=== PATIENT | male | born 1955 | race Caucasian/White ===

== ENCOUNTER 2017-07-19 11:55 | Inpatient (IN) ==
[2017-07-19] MEDS ORDERED: 0.9 % Sodium Chloride 1,000 ML IVC ONE (12:47)
[2017-07-19 13:28] LABS: Basophils # 0.1 K/mcL (0.0-0.2); Basophils % 0.8 %; Eosinophils # 0.1 K/mcL (0.0-0.6); Eosinophils % 1.7 %; Hematocrit 36.3 % (37.5-50.1); Immature Granulocytes % 0.3 % (0-4); Lymphocytes # 0.7 K/mcL (0.6-4.6); Lymphocytes % 11.8 %; Mean Corpuscular HGB Conc 33.1 g/dL (31.6-35.5); Mean Corpuscular Hemoglobin 28.4 pg (28.0-33.3); Mean Corpuscular Volume 85.8 fL (83.0-100.0); Mean Platelet Volume 10.8 fL (9.4-12.4); Monocytes # 0.4 K/mcL (0.0-1.3); Monocytes % 7.3 %; Neutrophils # 4.6 K/mcL (1.6-8.9); Platelet Count 177 K/mcL (140-400); Red Blood Count 4.23 M/mcL (4.19-5.50); Red Cell Distribution Width 14.5 % (11.5-14.5); Segmented Neutrophils % 78.1 %
[2017-07-19 13:42] LABS: Alanine Aminotransferase 50 Units/L (0-55); Albumin 3.2 g/dL (3.5-5.0); Albumin/Globulin Ratio 0.9 (1.1-2.2); Alkaline Phosphatase 72 Units/L (38-126); Aspartate Amino Transferase 33 Units/L (5-34); BUN/Creatinine Ratio 29 (6-26); Bilirubin,Direct 0.1 mg/dL (0.0-0.5); Bilirubin,Indirect 0.1 mg/dL (0.0-1.2); Bilirubin,Total 0.2 mg/dL (0.2-1.2); Blood Urea Nitrogen 23 mg/dL (8-26); Calcium 9.7 mg/dL (8.6-10.8); Carbon Dioxide 26 mEq/L (19-29); Chloride 106 mEq/L (98-109); Globulin 3.6 g/dL (2.4-3.5); Glucose 92 mg/dL (70-99); Osmolality,Calculated 295 (280-300); Potassium 4.5 mEq/L (3.5-4.5); Sodium 141 mEq/L (136-145); Total Protein 6.8 g/dL (6.0-8.3); eGFR For African Americans > 60 (> 60); eGFR For Non-African Americans > 60 (> 60)
[2017-07-19] MEDS ORDERED: Metoclopramide 10 MG/2 ML VIAL IVP ONE (14:24)
--- NOTE | 2017-07-19 15:44 | Emergency Department Note ---
Disposition Clinical Impression: Malignancy, Facial mass Headache Qualifiers: Headache type: unspecified Headache chronicity pattern: chronic headache Intractability: not intractable Qualified Code(s): R51 - Headache Failure to thrive Qualifiers: Failure to thrive age range: in adult Qualified Code(s): R62.7 - Adult failure to thrive Disposition: Admitted As Inpatient Condition: Fair General Adult HPI - General Chief complaint: ED Headache Stated complaint: headache Time Seen by Provider: 07/19/17 12:04 Source: patient, EMS Mode of arrival: ambulatory Limitations: no limitations Nursing Notes Reviewed: Yes Vital Signs Reviewed: Yes - History of Present Illness HPI Narrative: Patient presents to the ED with the chief complaint of a headache. Has a history of left facial malignancy and lung cancer treated at [facility]. Essentially, patient presenting for failure to thrive. Has had decreased oral intake, increased pain in his face. Patient already has trach and PEG, but will not allow anyone to clean it or changes. No fever, chest pain or worsening difficulty breathing. The pain medicine. They have been giving him is not working and is causing him to have a headache. Headache is been off and on for the last several months, not the worse headache of his life , not acute in onset, no associated vomiting. He does state that over the last 2 weeks. The swelling in his face has gotten worse to the point where he can no longer open his mouth. Normally likes to drink coffee, but has been unable to. is concerned that he is becoming depressed and may no longer want to live, although the patient denies any suicidal ideation. Pain Scale: 7 - Related Data Home Medications Medication Instructions Recorded Confirmed Ciprofloxacin HCl [Cipro] 500 mg GTUBE Q12H 07/19/17 07/19/17 Gabapentin [Gabapentin] 300 mg GTUBE Q12H 07/19/17 07/19/17 Lactose-Reduced Food/Fiber [Jevity 1 can PO AD 07/19/17 07/19/17 1.5 Leeroy Liquid] Levothyroxine [Synthroid] 125 mcg GTUBE QAM 07/19/17 07/19/17 Methadone HCl 5 mg GTUBE Q12H 07/19/17 07/19/17 Prochlorperazine Maleate 10 mg GTUBE Q8HR PRN 07/19/17 07/19/17 [Compazine] Allergies Allergy/AdvReac Type Severity Reaction Status Date / Time No Known Allergies Allergy Verified 07/19/17 12:02 All systems ED: reviewed and negative except as stated. Constitutional: Reports: weakness, weight change. Denies: fever Eyes: Denies: vision change ENT ED: Reports: as per HPI, throat pain Cardiovascular: Denies: chest pain Respiratory: Denies: dyspnea Gastrointestinal: Denies: vomiting Musculoskeletal: Reports: neck pain Neurological: Reports: headache, weakness (general) Psychiatric: Reports: depression Endocrine: Reports: fatigue Allergic/Immunologic: Reports: facial swelling Past Medical History - Past Medical History Attestation: Yes The following information was validated with the patient. Source: patient Medical history: Reports: asthma, cancer, COPD, hypertension Surgical history: Reports: non-contributory Psychiatric history: Reports: no psych history - Social History Smoking Status: Former smoker Smokeless Tobacco Status: No Alcohol use: Reports: none Drug use: Reports: none Physical Exam - General Limitations: no limitations General appearance: alert, in no apparent distress - Head Head exam: atraumatic, normocephalic, normal inspection - Eye Eye exam: Present: normal appearance, PERRL, EOMI - ENT ENT exam: other (Large soft tissue mass to the left face extending from the maxilla into the mandible and down into the neck. Patient unable to open mouth , as she states it is too painful and that the tumor has been growing into his neck) - Neck Neck exam: Present: tenderness, lymphadenopathy, other (mass to L neck) - Chest Chest inspection: Present: normal inspection, symmetric chest wall rise - Respiratory Respiratory exam: Present: normal lung sounds bilaterally - Cardiovascular Cardiovascular exam: Present: normal rhythm, bradycardia, normal heart sounds. Absent: regular rate - Abdominal Exam Abdominal exam: Present: soft, Non-Tender, other (PEG tube in place). Absent: tenderness, distention, guarding, rebound, rigidity - Extremities Exam Extremities exam: Present: normal inspection, full ROM - Expanded Lower Extremity Exam Hip/Pelvis exam: Present: pelvis stable - Neurological Exam Neurological exam: Present: alert, oriented X3 - Psychiatric Psychiatric exam: Present: depressed, flat affect - Skin Skin exam: Present: warm, dry, intact, normal color Course Course Narrative: Patient presents to the ED with the complaint of headache and worsening pain in his left jaw. Patient has a history of malignancy in his left jaw and has a trach and PEG tube. Family states over the last few weeks since discharge from [facility] that he is gradually declined to the point where he no longer wants to eat or drink. States he can normally open his mouth to drink coffee but has not been able to do that over the past 2 weeks. Has had some worsening pain and swelling in his left jaw and neck. No fever, chest pain or shortness breath. Patient's is concerned that he no longer wants to live for and that he may consider suicide. - Reevaluation(s) Reevaluation #1: Patient's CT result is back and does look like he has a worsening malignancy in his neck. This was discussed with the patient and family. They would like to be admitted to the hospital here for discussion about potential palliative care. I think this is reasonable. Patient resting comfortably in no acute distress. We will paged hospitalist for admission. Time: 15:39 Vital Signs Temperature 97.2 F L 07/19/17 11:59 Pulse Rate 55 07/19/17 11:59 Respiratory Rate 16 07/19/17 11:59 Blood Pressure 99/74 07/19/17 11:59 O2 Sat by Pulse Oximetry 100 07/19/17 11:59 Temperature 97.4 F L 07/21/17 18:51 Pulse Rate 59 07/21/17 18:51 Respiratory Rate 19 07/21/17 18:51 Blood Pressure 134/71 07/21/17 18:51 O2 Sat by Pulse Oximetry 100 07/21/17 18:51 Oxygen Delivery Oxygen Delivery Room Air Medical Decision Making - Lab Data Result diagrams: 07/21/17 05:54 07/21/17 05:54 Lab Results 07/19/17 07/19/17 07/20/17 Range/Units 13:15 13:15 04:36 WBC 5.9 5.5 (4.3-11.1) K/mcL RBC 4.23 4.26 (4.19-5.50) M/mcL Hgb 12.0 L 11.8 L (12.9-16.9) g/dL Hct 36.3 L 36.5 L (37.5-50.1) % MCV 85.8 85.7 (83.0-100.0) fL MCH 28.4 27.7 L (28.0-33.3) pg MCHC 33.1 32.3 (31.6-35.5) g/dL RDW 14.5 14.6 H (11.5-14.5) % Plt Count 177 174 (140-400) K/mcL MPV 10.8 11.2 (9.4-12.4) fL Immature Gran % 0.3 (0-4) % Seg Neutrophils % 78.1 % Lymphocytes % 11.8 % Monocytes % 7.3 % Eosinophils % 1.7 % Basophils % 0.8 % Neutrophils # 4.6 (1.6-8.9) K/mcL Lymphocytes # 0.7 (0.6-4.6) K/mcL Monocytes # 0.4 (0.0-1.3) K/mcL Eosinophils # 0.1 (0.0-0.6) K/mcL Basophils # 0.1 (0.0-0.2) K/mcL PT (9.4-12.1) Seconds INR APTT (26.0-36.0) Seconds Sodium 141 (136-145) mEq/L Potassium 4.5 (3.5-4.5) mEq/L Chloride 106 (98-109) mEq/L Carbon Dioxide 26 (19-29) mEq/L BUN 23 (8-26) mg/dL Creatinine 0.79 (0.72-1.25) mg/dL Est GFR ( Amer) > 60 (> 60) Est GFR (Non-Af Amer) > 60 (> 60) BUN/Creatinine Ratio 29 H (6-26) Glucose 92 (70-99) mg/dL Calculated Osmolality 295 (280-300) Calcium 9.7 (8.6-10.8) mg/dL Phosphorus (2.3-4.7) mg/dL Magnesium (1.6-2.6) mg/dL Total Bilirubin 0.2 (0.2-1.2) mg/dL Direct Bilirubin 0.1 (0.0-0.5) mg/dL Indirect Bilirubin 0.1 (0.0-1.2) mg/dL AST 33 (5-34) Units/L ALT 50 (0-55) Units/L Alkaline Phosphatase 72 (38-126) Units/L Serum Total Protein 6.8 (6.0-8.3) g/dL Albumin 3.2 L (3.5-5.0) g/dL Globulin 3.6 H (2.4-3.5) g/dL Albumin/Globulin Ratio 0.9 L (1.1-2.2) 07/20/17 07/20/17 Range/Units 04:36 04:36 WBC (4.3-11.1) K/mcL RBC (4.19-5.50) M/mcL Hgb (12.9-16.9) g/dL Hct (37.5-50.1) % MCV (83.0-100.0) fL MCH (28.0-33.3) pg MCHC (31.6-35.5) g/dL RDW (11.5-14.5) % Plt Count (140-400) K/mcL MPV (9.4-12.4) fL Immature Gran % (0-4) % Seg Neutrophils % % Lymphocytes % % Monocytes % % Eosinophils % % Basophils % % Neutrophils # (1.6-8.9) K/mcL Lymphocytes # (0.6-4.6) K/mcL Monocytes # (0.0-1.3) K/mcL Eosinophils # (0.0-0.6) K/mcL Basophils # (0.0-0.2) K/mcL PT 10.7 (9.4-12.1) Seconds INR 1.0 APTT 28.3 (26.0-36.0) Seconds Sodium 141 (136-145) mEq/L Potassium 3.7 (3.5-4.5) mEq/L Chloride 107 (98-109) mEq/L Carbon Dioxide 29 (19-29) mEq/L BUN 19 (8-26) mg/dL Creatinine 0.76 (0.72-1.25) mg/dL Est GFR ( Amer) > 60 (> 60) Est GFR (Non-Af Amer) > 60 (> 60) BUN/Creatinine Ratio 25 (6-26) Glucose 112 H (70-99) mg/dL Calculated Osmolality 295 (280-300) Calcium 9.8 (8.6-10.8) mg/dL Phosphorus 3.7 (2.3-4.7) mg/dL Magnesium 2.0 (1.6-2.6) mg/dL Total Bilirubin (0.2-1.2) mg/dL Direct Bilirubin (0.0-0.5) mg/dL Indirect Bilirubin (0.0-1.2) mg/dL AST (5-34) Units/L ALT (0-55) Units/L Alkaline Phosphatase (38-126) Units/L Serum Total Protein (6.0-8.3) g/dL Albumin (3.5-5.0) g/dL Globulin (2.4-3.5) g/dL Albumin/Globulin Ratio (1.1-2.2) Attestation Statement - Attestation Attestation: I examined this patient and my medical decision-making was reviewed with the Resident Physician, Dr. Lovett. I agree with the documented findings, disposition and treatment plan as described except to the extent set forth below. Pt is a 61 yo wm, who is brought to the ED by his , hx facial/lung malignancy and s/p trach/PEG. brought him for essentially FTT. Pt refusing to eat/drink, not allowing anyone to clean/change his PEG site or trach. concerned that he may be suicidal, but pt denies any SI/HI/delusions/ hallucinations. Pt is bradycardic and hypotensive on arrival. Pt c/o mild chronic frontal TAVAREZ's which were not acute in onset, and worsening facial swelling at site of malignancy, preventing him from fully opening his mouth. No resp distress/ stridor. Trach site without skin breakdown/bleeding, scant green mucous in tube. I agree with pt's PE findings as documented. Labs unremarkable. Pt appears depressed mood, and does not want to undergo any further CA tx. wanting everything done. CT brain wnl, CT face shows worsening of facial malignancy, grown in size from prior imaging. D/W pt and . Consulted telecasting engineer to speak with family. Offered pt admission and also offered palliative care consult. Pt and do want to be admitted here and were interested in consultation. VSS. D/W hospitalist who accepted pt for admission.
--- NOTE | 2017-07-19 19:23 | Internal Med History&Physical ---
<Garrison Law - Last Filed: 07/20/17 01:32> Date of Encounter: 07/19/17 Time of Encounter: 19:23 Assessment and Plan (1) Laryngeal cancer Current visit: Yes Status: Acute CT neck reveals interval progression of disease with increase in size of ulcerated mucosal mass involving the left tongue base and left tonsillar pillar. Additionally, there is a new soft tissue mass in the left perimandibular soft tissues and left face. Last radiation and chemo in February 2016 at [facility]. Patient reports swelling in his face has gotten worse to the point where he can no longer open his mouth to eat or drink over the past 3 weeks. Patient reports he was unable to travel to [facility] today for another chemotherapy session and would like to receive treatment at [facility] instead. 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 However, pulmonary metastatic disease is not excluded. Qualifiers: Laterality: right Qualified Code(s): C78.01 - Secondary malignant neoplasm of right lung (3) Headache Current visit: Yes Status: Acute CT brain reveals no acute intracranial abnormality. Consider MRI brain if further concern for brain metastasis Continue pain control and symptomatic treatment Qualifiers: Headache type: unspecified Headache chronicity pattern: chronic headache Intractability: not intractable Qualified Code(s): R51 - Headache (4) Tracheostomy in place Current visit: Yes Status: Chronic Continue tracheostomy care (5) Status post insertion of percutaneous endoscopic gastrostomy (PEG) tube Current visit: Yes Status: Chronic Continue tube feeds (6) COPD (chronic obstructive pulmonary disease) Current visit: Yes Status: Chronic CXR reveals no acute process Continue to monitor Qualifiers: COPD type: unspecified COPD Qualified Code(s): J44.9 - Chronic obstructive pulmonary disease, unspecified (7) DVT prophylaxis Current visit: Yes Status: Acute SCDs Internal Medicine - H&P: HPI Chief complaint: Anorexia Admitted From: Home Plans for Post Hospital Care: Hospice - Home History of present illness: Mr. Gunter is a 61 year old male laryngeal cancer, hypertension, COPD, current tracheostomy, and PEG tube that presented from home due to gradually worsening headache, increased swelling and pain in his right face despite analgesics, and decrease in appetite. Patient reports swelling in his face has gotten worse to the point where he can no longer open his mouth to eat or drink. Patient's is concerned that he no longer wants to live and is severely depressed. Of note, patient reports early improvement in symptoms after radiation and chemo in February 2016 at [facility] but symptoms have started getting worse over the past 3 weeks. Patient reports he was unable to travel to [facility] today for another chemotherapy session and would like to receive treatment at [facility] instead. Patient takes Methadone 5mg BID via NG tube prn pain. Patient denies fever, chills, chest pain, SOB, cough, N/V/D/C, vision changes, numbness, tingling, worst headache of his life, or suicidal ideation. Past Med Surg Social Fam HX - Past Medical History Medical history: asthma, cancer, COPD, hypertension, other Psychiatric history: anxiety, depression - Past Surgical History Surgical History: non-contributory, orthopedic, other - Social History Smoking Status: Former smoker Packs per day: 2 Smokeless Tobacco Status: No Alcohol use: none Drug use: none - Family History Mother Living Status: Cause of : lung cancer Internal Medicine - H&P: Meds Ciprofloxacin HCl [Cipro] 500 mg GTUBE Q12H 07/19/17 [History] Gabapentin [Gabapentin] 300 mg GTUBE Q12H 07/19/17 [History] Lactose-Reduced Food/Fiber [Jevity 1.5 Leeroy Liquid] 1 can PO AD 07/19/17 [History ] Levothyroxine [Synthroid] 125 mcg GTUBE QAM 07/19/17 [History] Methadone HCl 5 mg GTUBE Q12H 07/19/17 [History] Prochlorperazine Maleate [Compazine] 10 mg GTUBE Q8HR PRN 07/19/17 [History] 3 Allergy/AdvReac Type Severity Reaction Status Date / Time No Known Allergies Allergy Verified 07/19/17 12:02 All Systems PM: A 10-system review of systems was performed and is negative for pertinent findings except as documented above in the HPI. - Constitutional Constitutional: no chills, no fever(s), no weight gain, no weight loss - EENT Eyes: no change in vision Nose, mouth and throat: change in voice, dry mouth, facial pain, mouth lesions, mouth pain, sore throat, throat swelling, no nasal congestion, no nasal obstruction, no sinus pain, no tongue swelling - Cardiovascular Cardiovascular ROS IM: no chest pain, no palpitations - Respiratory Respiratory: no cough, no dyspnea, no excessive phlegm production - Gastrointestinal Gastrointestinal: no abdominal pain, no constipation, no diarrhea, no nausea, no vomiting - Genitourinary Genitourinary ROS male: no dysuria, no urinary frequency, no urinary urgency - Musculoskeletal Musculoskeletal ROS IM: limited range of motion (jaw), myalgias, no back pain, no numbness, no tingling - Integumentary Integumentary IM: no new lesions, no rash, no skin ulcer - Neurological Neurological ROS: no confusion, no numbness, no tingling, no weakness - Psychiatric Psychiatric: depression, no anxiety, no suicidal ideation - Endocrine Endocrine IM: no polydipsia, no polyphagia, no polyuria - Allergic/Immunologic Allergic/Immunologic: no tongue swelling, no throat swelling, no lip swelling - Constitutional Vitals: Temp Pulse Resp BP Pulse Ox 97.3 F L 62 18 145/64 98 07/19/17 18:47 07/19/17 18:47 07/19/17 18:47 07/19/17 18:47 07/19/17 18:47 General appearance: Present: cooperative, mild distress, A&O X 3, pleasant, answers questions appropriately Exam: appears ill, some difficulty speaking due to jaw immobility - Head Head exam: Present: atraumatic, normocephalic - Eye Eye exam: Present: EOMI, PERRL - ENT ENT exam: Present: mucous membranes dry. Absent: normal exam, normal oropharynx Additional comments: soft tissue mass extending form the left maxilla into the mandible and down into the neck, inability to passively open patient's mouth to visualize oropharynx, pain with palpation left jaw - Expanded ENT Exam Mouth exam: Present: dry mucosa, muffled voice. Absent: normal external inspection Teeth exam: Present: edentulous Throat exam: Present: L peritonsillar mass. Absent: normal inspection - Neck Additional comments: tracheostomy in place, left submandibular mass - Respiratory Respiratory exam: Present: CTAB. Absent: accessory muscle use, respiratory distress, rhonchi, wheezes - Cardiovascular Cardiovascular exam: Present: RRR, +S1, +S2 - GI/Abdominal GI/Abdominal exam: Present: normal bowel sounds, soft. Absent: guarding, tenderness Additional comments: PEG tube in place, no surrounding erythema - Extremities Exam Extremities exam: Present: full ROM, warm. Absent: pedal edema, tenderness - Back Exam Back exam: Absent: normal inspection, paraspinal tenderness, tenderness - Neurological Exam Neurological exam: Present: alert, motor sensory deficit (inability to open jaw) , oriented X3, facial droop (left face mass) - Psychiatric Psychiatric exam: Present: flat affect, normal mood - Skin Skin exam: Present: dry, intact, warm. Absent: excoriation, rash Internal Med - H&P Results - Labs CBC & Chem 7: 07/19/17 13:15 07/19/17 13:15 - Impressions ITS Impressions Head CT 07/19/17 12:56 IMPRESSION: No acute intracranial abnormality. D/ / Sagar Otto MD / Sagar Otto MD Interpreting Provider: Sagar Otto MD Soft Tissue Neck CT 07/19/17 14:23 IMPRESSION: 1. Interval progression of disease with increase in size of ulcerated mucosal mass involving the left tongue base and left tonsillar pillar. Additionally, there is a new soft tissue mass in the left perimandibular soft tissues and left face. 2. Right upper lobe nodular opacity with ground-glass densities may represent focal infection/inflammation. However, pulmonary metastatic disease is not excluded. D/ / 07/19/2017 15:18:57 Mike Wu MD / byron Interpreting Provider: Mike Wu MD Chest X-Ray 07/19/17 14:24 IMPRESSION: No acute process. D/ / Kyle Márquez MD / Kyle Márquez MD Interpreting Provider: Kyle Márquez MD <Patricia Lino - Last Filed: 07/20/17 03:17> Date of Encounter: 07/19/17 Internal Medicine - H&P: HPI History of present illness: Mr. Gunter is a 61 year old male All Systems PM: A 10-system review of systems was performed and is negative for pertinent findings except as documented above in the HPI. - Constitutional Vitals: Temp Pulse Resp BP Pulse Ox 98 F 65 17 131/65 98 07/19/17 23:43 07/19/17 23:43 07/19/17 23:43 07/19/17 23:43 07/19/17 23:43 Internal Med - H&P Results - Labs CBC & Chem 7: 07/19/17 13:15 07/19/17 13:15 - Attending Attestation I have personally seen and examined the patient. Plan discussed with the resident. Patient has presented with inability to eat severe protein calorie medical nutrition and weight loss. He has metastatic laryngeal cancer and underwent chemotherapy last year. Apparently he improved but now there is recurrence. His CT face showed new mass and he is unable to open his mouth. He has a PEG tube. Continue feeds as started. He is a good bowel tone. [facility] has recommended to restart palliative chemotherapy however patient's family is requesting to do it in [place] therefore oncology consulT will be arranged by morning hospitalist team. Palliative care consult suggested.
[2017-07-19] MEDS ORDERED: Naloxone 0.4 MG/ML INJ IVP PRN (20:14)
[2017-07-19] MEDS ORDERED: Ibuprofen 400 MG TABLET PO PRN (20:14)
[2017-07-19] MEDS ORDERED: Metoclopramide 20 MG in 0.9 % Sodium Chloride 50 ML IVPB PRN (20:22)
[2017-07-19] MEDS ORDERED: [UNRECOGNIZED DRUG - OTHER] PO SCH (20:30)
[2017-07-19] MEDS ORDERED: FIBER PO SCH (20:30)
[2017-07-19] MEDS ORDERED: LACTOSE REDUCED FOOD PO SCH (20:30)
[2017-07-19] MEDS: *HR* Morphine 2 MG/ML SYRINGE IVP PRN (20:51)
[2017-07-19] MEDS ORDERED: Methadone Oral Concentrate 10 MG/ML GTUBE SCH (21:00)
[2017-07-19] MEDS: Gabapentin 300 MG CAPSULE GTUBE SCH (23:03)
[2017-07-19] MEDS: *HR* Methadone 5 MG TABLET PO SCH (23:03)
[2017-07-20] MEDS: *HR* Morphine 2 MG/ML SYRINGE IVP PRN ×2 (04:24→09:19)
[2017-07-20 05:40] LABS: Hematocrit 36.5 % (37.5-50.1); Hemoglobin 11.8 g/dL (12.9-16.9); Mean Corpuscular HGB Conc 32.3 g/dL (31.6-35.5); Mean Corpuscular Hemoglobin 27.7 pg (28.0-33.3); Mean Corpuscular Volume 85.7 fL (83.0-100.0); Mean Platelet Volume 11.2 fL (9.4-12.4); Platelet Count 174 K/mcL (140-400); Red Blood Count 4.26 M/mcL (4.19-5.50); Red Cell Distribution Width 14.6 % (11.5-14.5)
[2017-07-20 05:48] LABS: Prothrombin Time 10.7 Seconds (9.4-12.1)
[2017-07-20 05:51] LABS: Activated Partial Thrombo Time 28.3 Seconds (26.0-36.0)
[2017-07-20 05:55] LABS: BUN/Creatinine Ratio 25 (6-26); Blood Urea Nitrogen 19 mg/dL (8-26); Calcium 9.8 mg/dL (8.6-10.8); Carbon Dioxide 29 mEq/L (19-29); Chloride 107 mEq/L (98-109); Glucose 112 mg/dL (70-99); Osmolality,Calculated 295 (280-300); Phosphorous 3.7 mg/dL (2.3-4.7); Potassium 3.7 mEq/L (3.5-4.5); Sodium 141 mEq/L (136-145); eGFR For African Americans > 60 (> 60); eGFR For Non-African Americans > 60 (> 60)
[2017-07-20] MEDS: Gabapentin 300 MG CAPSULE GTUBE SCH ×2 (09:13→20:59)
[2017-07-20] MEDS: *HR* Methadone 5 MG TABLET PO SCH ×2 (09:13→20:59)
[2017-07-20] MEDS ORDERED: *HR* Morphine 2 MG/ML SYRINGE IVP PRN (10:28)
--- NOTE | 2017-07-20 10:57 | Palliative - Consult Note ---
Date of Encounter: 07/20/17 Time of Encounter: 09:50 - Assessment and Plan (1) Cancer associated pain Current Visit: Yes Status: Acute Assessment and plan: Patient is already on methadone 5 mg twice a day via his G-tube. He has taken 20 mg oxycodone via the G-tube and that has worked well for him. Not real clear on when he was getting this as it is not listed in his home meds in the summary. Therefore I will increase his indications as follows. Increasing the morphine from 2 mg to 7.5 mg and decrease the dosing interval to every 2 hours when necessary. She states that the morphine was helping but very very very little. I do not believe that this increase will be all that much for him as he was getting 20 mg oxycodone at home, and is also on 5 mg twice a day of methadone. I have also put 15 mg oxycodone via the G-tube available every 2 hours. I have talked with the nurse to try to use the oxycodone via the G-tube first and save the morphine for breakthrough. After a day or 2 we will consider the possibility of increasing his methadone. As the patient will be managed over at the cancer Center believe that Asher Singh will be only managed over there without any trouble. (2) Constipation by delayed colonic transit Current Visit: Yes Status: Acute Assessment and plan: As the patient will be getting opioids, I put him on a bowel regimen we will continue to watch this. (3) Goals of care, counseling/discussion Current Visit: Yes Status: Acute Assessment and plan: Patient comes in already established DNR CCA, DNI. He does not wish to be resuscitated in the event of cardiac arrest. He also already has a trach and opaqueness of those issues already been addressed. The patient does wish to continue to get chemotherapy if this is at all available to him. We also discussed hospice. He stands when the chemotherapy is no longer working or is causing him too many side effects he can always opt for hospice. Hospice will be available to him whenever he feels it is ready or the folks at the cancer center do not feel the chemotherapy is doing him any good. Patient requests doing redoing his MPOA area I will discuss with social work. (4) Facial mass Current Visit: Yes Status: Acute Assessment and plan: I will start Decadron 4 mg twice a day I think this will help the swelling, it may also help the headaches. (5) Failure to thrive Current Visit: Yes Status: Acute Assessment and plan: Nutrition is following for his G-tube feedings. We will continue these. Qualifiers: Failure to thrive age range: in adult Qualified Code(s): R62.7 - Adult failure to thrive Palliative-CN HPI - Data of Consult Patient: new to practice Requesting Physician: Homer Hale MD Primary Care Provider: Jose Guadalupe Sierra MD - Consult Narrative Palliative Care/Comfort Measures: Palliative care History of present illness: Mr. Gunter is a 61 year old male Patient with a history of laryngeal cancer, hypertension COPD of a trach and a PEG comes from home with worsening headache swelling and pain in the side of his face despite analgesics. Decreased she states that the medications that he has been getting here are helping but not adequately. appetite and the swelling in his face is got to the point where he can no longer open his mouth to eat or drink. The pain is a very intense deep ache achiness primarily in the left side of his face and radiates up into his head. Nothing seems to bring in all medications are helping some but they do not seem to be helping enough. Patient was getting 20 mg oxycodone at home his pain tube and this did not seem to work. She last got radiation chemotherapy in February 2016 at [facility] but the symptoms to be getting worse over the last 3 weeks unable to travel to [facility] for any more chemotherapy and therefore the site he wanted to have chemotherapy down here at the cancer center in [place]. Denies any fever or chills chest pain shortness breath cough nausea vomiting diarrhea has a little bit of constipation vision changes denies any numbness tingling he does not have any suicidal ideation and he does not have the worst headache of his life. Palliative care consult at the request of oncology who was also consulted and goals of care, CODE STATUS is already well established assistance with symptom management. Please see the assessment and plan. CC: Homer Hale MD Headache and left-sided facial swelling Past Med Surg Social Fam HX - Past Medical History Medical history: asthma, cancer, COPD, hypertension, other Psychiatric history: anxiety, depression - Past Surgical History Surgical History: non-contributory, orthopedic, other - Social History Smoking Status: Former smoker Packs per day: 2 Smokeless Tobacco Status: No Alcohol use: none Drug use: none - Family History Mother Living Status: Cause of : lung cancer Medications and Allergies Ciprofloxacin HCl [Cipro] 500 mg GTUBE Q12H 07/19/17 [History] Gabapentin [Gabapentin] 300 mg GTUBE Q12H 07/19/17 [History] Lactose-Reduced Food/Fiber [Jevity 1.5 Leeroy Liquid] 1 can PO AD 07/19/17 [History ] Levothyroxine [Synthroid] 125 mcg GTUBE QAM 07/19/17 [History] Methadone HCl 5 mg GTUBE Q12H 07/19/17 [History] Prochlorperazine Maleate [Compazine] 10 mg GTUBE Q8HR PRN 07/19/17 [History] 3 Allergy/AdvReac Type Severity Reaction Status Date / Time No Known Allergies Allergy Verified 07/19/17 12:02 - Constitutional Constitutional ROS PAL: decreased appetite - EENT Eyes: no discharge, no pain Ears: no ear discharge, no ear pain Ears, nose, mouth, throat: change in voice, dysphagia, facial pain, neck pain ( Neck mass) - Cardiovascular Cardiovascular ROS: no chest pain, no chest pain at rest - Respiratory Respiratory: no cough, no dyspnea - Gastrointestinal Gastrointestinal: constipation, nausea, no diarrhea, no vomiting - Genitourinary Genitourinary ROS male: no urinary frequency, no urinary hesitancy, no urinary incontinence - Musculoskeletal Musculoskeletal ROS IM: neck pain, no muscle weakness, no myalgias - Integumentary ROS Integumentary: skin ulcer, sores (Left side of face and neck) - Neurological Neurological ROS: headache(s), no confusion, no dizziness, no focal weakness - Psychiatric Psychiatric general PM: change in appetite, depression (Mild), no confusion, no homicidal ideation, no hopelessness, no suicidal ideation - Endocrine Additional comments: No diabetes or thyroid problems. Palliative Care-Exam - Constitutional Vitals: Temp Pulse Resp BP Pulse Ox 96.8 F L 62 14 100/62 96 07/20/17 07:42 07/20/17 07:42 07/20/17 07:42 07/20/17 07:42 07/20/17 07:42 General appearance: Present: no acute distress - Head Head Exam: Present: atraumatic, normal inspection - Eye Eye exam: Present: normal appearance (Except for left eye droop) - ENT ENT exam: Absent: normal oropharynx (Large mass and swelling on the left side of the face and extending into the neck.) - Neck Neck exam: Present: normal inspection (Trach in place) - Respiratory Respiratory exam: Present: CTAB - Cardiovascular Cardiovascular exam: Present: RRR - GI/Abdominal Exam GI/Abdominal exam: Present: normal bowel sounds (Tube in place), soft. Absent: tenderness - Extremities Exam Extremities exam: Present: normal inspection. Absent: pedal edema, tenderness - Neurological Exam Neurological exam: Present: alert, oriented X3 - Psychiatric Psychiatric exam: Present: normal affect. Absent: agitated, anxious - Skin Skin exam: Present: dry, warm Internal Medicine - CN: Reslt - Labs CBC & Chem 7: 07/20/17 04:36 07/20/17 04:36 - ABG Interpretation ABG results: PT/INR, D-dimer PT 10.7 Seconds (9.4-12.1) 07/20/17 04:36 Consult Discharge Plan - Plan Referrals: Jose Guadalupe Sierra MD [Primary Care Provider] - 07/24/17 3:15 pm (Please follow up as schedule...) Palliative Quality Palliative Quality: Screen for Code Status: Yes, Screen for Goals of Care: Yes, Screen for Pain: Yes, If Pain Regimen Started, Initiate Bowel Regimen: Yes, Screen for Nausea/Vomitting: Yes
[2017-07-20] MEDS ORDERED: Acetaminophen 325 MG TABLET PO PRN (12:36)
[2017-07-20] MEDS: *HR* OxyCODONE Oral Soln 5 MG/5 ML UD.LIQ GTUBE PRN ×3 (14:23→21:00)
--- NOTE | 2017-07-20 16:15 | Internal Med Progress Note ---
Date of Encounter: 07/20/17 Time of Encounter: 16:00 - Assessment and plan (1) Cancer associated pain Current Visit: Yes Status: Acute Assessment and plan: Symptomatic pain management per Palliative team recommendations. Oncology following, appreciate recs. Currently patient is receiving symptomatic treatment here. However, goals of care are still an ongoing discussion. (2) Facial mass Current Visit: Yes Status: Acute (3) Failure to thrive Current Visit: Yes Status: Acute Qualifiers: Failure to thrive age range: in adult Qualified Code(s): R62.7 - Adult failure to thrive (4) Goals of care, counseling/discussion Current Visit: Yes Status: Acute (5) Headache Current Visit: Yes Status: Acute Qualifiers: Headache type: unspecified Headache chronicity pattern: chronic headache Intractability: not intractable Qualified Code(s): R51 - Headache (6) Laryngeal cancer Current Visit: Yes Status: Acute (7) Malignancy Current Visit: Yes Status: Acute - Subjective Interval history: Patient was seen by Palliative team earlier today. Pain medication was adjust for new onset swelling pain. Also Decadron 8 mg now to decrease swelling. Patient states he doesn't have any new complaints at the moment, he is willing to see how medication adjustment can help his symptoms. - Constitutional Vitals: Temp Pulse Resp BP Pulse Ox 97.4 F L 61 15 129/75 97 07/20/17 15:56 07/20/17 15:56 07/20/17 15:56 07/20/17 15:56 07/20/17 15:56 General appearance: Present: cooperative, mild distress, A&O X 3, pleasant, answers questions appropriately Exam: soft tissue mass extending form the left maxilla into the mandible and down into the neck, inability to passively open patient's mouth to visualize oropharynx, pain with palpation left jaw - Expanded ENT Exam Mouth exam: Present: dry mucosa, muffled voice. Absent: normal external inspection Teeth exam: Present: edentulous Throat exam: Present: L peritonsillar mass. Absent: normal inspection - Neck Additional comments: tracheostomy in place, left submandibular mass - Respiratory Respiratory exam: Present: CTAB. Absent: accessory muscle use, respiratory distress, rhonchi, wheezes - Cardiovascular Cardiovascular exam: Present: RRR, +S1, +S2 - GI/Abdominal GI/Abdominal exam: Present: normal bowel sounds, soft. Absent: guarding, tenderness Additional comments: PEG tube in place, no surrounding erythema - Extremities Exam Extremities exam: Present: full ROM, warm. Absent: pedal edema, tenderness - Back Exam Back exam: Absent: normal inspection, paraspinal tenderness, tenderness - Neurological Exam Neurological exam: Present: alert, motor sensory deficit (inability to open jaw) , oriented X3, facial droop (left face mass) - Psychiatric Psychiatric exam: Present: flat affect, normal mood - Skin Skin exam: Present: dry, intact, warm. Absent: excoriation, rash Internal Medicine: Result - Labs CBC & Chem 7: 07/20/17 04:36 07/20/17 04:36 - ABG Interpretation ABG results: PT/INR, D-dimer PT 10.7 Seconds (9.4-12.1) 07/20/17 04:36 Consult Discharge Plan - Plan Referrals: Jose Guadalupe Sierra MD [Primary Care Provider] - 07/24/17 3:15 pm (Please follow up as schedule...)
--- NOTE | 2017-07-20 18:21 | Oncology Inp Consult Note ---
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 Due to his performance status chemotherapy option was not presented the patient at [facility]. Patient wants to give consideration to treatment and is requesting to receive through [place]. He has had prolonged hospitalization as well as noncompliance with follow-ups documented at [facility]. Discussed with patient treatments are mainly palliative, immunotherapy every 2 weeks versus taking a treatment was reviewed and will plan outpatient therapy. Trismus/Pain management continue current pain medications will follow up with us for outpatient follow-up. Palliative care recommendations appreciated. Nutrition intake via g tube. Wkness and declined performance status. Hx COPD/tobacco abuse. Plan reviewed with patient and family Qualifiers: Laterality: right Qualified Code(s): C78.01 - Secondary malignant neoplasm of right lung - Data of Consult Requesting Physician: Homer Hale MD Primary Care Provider: Jose Guadalupe Sierra MD - Consult Narrative Reason for consult: tonsil cancer recurrent History of present illness: Mr. 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 Patient had been referred to medical oncology by Dr. Joe quintana for consideration off chemotherapy patient was seen by by Caryn who deferred chemotherapy due to his overall performance status and consideration was given to immunotherapy at that time. Patient was last seen in the clinic June 2017. Patient was offered every 2 weekly lab and he prefers to start treatment here. Patient's course of disease was also complicated by ototoxicity to initial cisplatin, patient subsequently took weekly carboplatin which was then switched to cetuximab. His original tumor was p16 positive. He is also continued smoking cigarettes. He has a G-tube and had been using 5 cans of feeding per day via gravity back. He has some left facial swelling and pain. He had headaches associated and CT imaging had been obtained. Patient also had developed a pneumothorax after lung biopsy at [facility]. MRI of the neck from January 2016 showed a 2.7 cm left tonsillar pillar mass suspicious for squamous cell carcinoma. No evidence of significant lymphadenopathy at that time. CT scan of the face with contrast in April 2017 showed left large oral cavity, buccal ulceration associated with cellulitis CT scan of the neck and soft tissue with contrast July 2017 shows increase in size of irregularly ulcerated mucosal-based mass involving left left tongue base, tonsillar pillar measuring 3.2 x 1.4 cm previously measuring 2 x 1.4 cm. Thickening of the epiglottis likely from prior radiation changes soft tissue mass in the left perimandibular soft tissues and left face--[id number] Pin in the left mandible, trismus, difficulty communicating. Family bedside and gives some history as mentioned above Past Med Surg Social Fam HX - Past Medical History Medical history: asthma, cancer, COPD, hypertension, other Psychiatric history: anxiety, depression - Past Surgical History Surgical History: non-contributory, orthopedic, other - Social History Smoking Status: Former smoker Packs per day: 2 Smokeless Tobacco Status: No Alcohol use: none Drug use: none - Family History Mother Living Status: Cause of : lung cancer Medications and Allergies Ciprofloxacin HCl [Cipro] 500 mg GTUBE Q12H 07/19/17 [History] Gabapentin [Gabapentin] 300 mg GTUBE Q12H 07/19/17 [History] Lactose-Reduced Food/Fiber [Jevity 1.5 Leeroy Liquid] 1 can PO AD 07/19/17 [History ] Levothyroxine [Synthroid] 125 mcg GTUBE QAM 07/19/17 [History] Methadone HCl 5 mg GTUBE Q12H 07/19/17 [History] Prochlorperazine Maleate [Compazine] 10 mg GTUBE Q8HR PRN 07/19/17 [History] 3 Allergy/AdvReac Type Severity Reaction Status Date / Time No Known Allergies Allergy Verified 07/19/17 12:02 Review of systems: as in HPI Oncology - Exam - Constitutional Vitals: Temp Pulse Resp BP Pulse Ox 97.4 F L 61 15 129/75 97 07/20/17 15:56 07/20/17 15:56 07/20/17 15:56 07/20/17 15:56 07/20/17 15:56 General appearance: no acute distress, thin - Head Additional comments: left facial/mandibular edema/tenderness - Eye Eye exam: Present: sclera anicteric - ENT ENT exam: Present: mucous membranes dry Additional comments: trismus - Neck Neck exam: Present: tenderness - Respiratory Respiratory exam: Present: CTAB - Cardiovascular Cardiovascular exam: Present: +S1, +S2 - GI/Abdominal GI/Abdominal exam: Present: normal bowel sounds, soft Additional comments: g tube - Extremities Exam Extremities exam: Present: full ROM - Neurological Exam Neurological exam: Present: alert, CN II-XII intact, oriented X3 - Psychiatric Psychiatric exam: Present: normal affect - Skin Skin exam: Present: dry Oncology - Results Ct imaging/labs reviewed Consult Discharge Plan - Plan Referrals: Jose Guadalupe Sierra MD [Primary Care Provider] - 07/24/17 3:15 pm (Please follow up as schedule...)
[2017-07-20] MEDS: Melatonin 3 MG TABLET PO SCH (21:00)
[2017-07-21 06:04] LABS: Hematocrit 36.3 % (37.5-50.1); Hemoglobin 11.8 g/dL (12.9-16.9); Immature Granulocytes % 0.6 % (0-4); Lymphocytes % 9.4 %; Mean Corpuscular HGB Conc 32.5 g/dL (31.6-35.5); Mean Corpuscular Hemoglobin 27.8 pg (28.0-33.3); Mean Corpuscular Volume 85.6 fL (83.0-100.0); Mean Platelet Volume 10.1 fL (9.4-12.4); Platelet Count 171 K/mcL (140-400); Red Blood Count 4.24 M/mcL (4.19-5.50); Red Cell Distribution Width 14.4 % (11.5-14.5); Segmented Neutrophils % 87.3 %
[2017-07-21 06:05] LABS: Basophils % 0.2 %; Lymphocytes # 0.5 K/mcL (0.6-4.6); Monocytes # 0.1 K/mcL (0.0-1.3); Monocytes % 2.5 %; Neutrophils # 4.5 K/mcL (1.6-8.9)
[2017-07-21 06:16] LABS: BUN/Creatinine Ratio 29 (6-26); Blood Urea Nitrogen 22 mg/dL (8-26); Calcium 9.6 mg/dL (8.6-10.8); Carbon Dioxide 28 mEq/L (19-29); Chloride 105 mEq/L (98-109); Glucose 177 mg/dL (70-99); Osmolality,Calculated 296 (280-300); Potassium 4.4 mEq/L (3.5-4.5); Sodium 139 mEq/L (136-145); eGFR For African Americans > 60 (> 60); eGFR For Non-African Americans > 60 (> 60)
--- NOTE | 2017-07-21 07:29 | Palliative Progress Note ---
Date of Encounter: 07/21/17 Time of Encounter: 06:50 - Assessment and plan (1) Cancer associated pain Current Visit: Yes Status: Acute Assessment and plan: Appears to be under good control this time continue present meds (2) Constipation by delayed colonic transit Current Visit: Yes Status: Acute Assessment and plan: Currently on bowel regimen, observed today and adjust tomorrow as needed. (3) Goals of care, counseling/discussion Current Visit: Yes Status: Acute Assessment and plan: CODE STATUS established DNR CCA DNI. Wish to have chemotherapy for his neck cancer. This will be done at [facility]. Oligemia is following plan per oncology after outpatient. (4) Facial mass Current Visit: Yes Status: Acute Assessment and plan: Chemotherapy to continue as an outpatient. (5) Failure to thrive Current Visit: Yes Status: Acute Assessment and plan: Nutrition is following. Patient getting feedings through the G-tube. Qualifiers: Failure to thrive age range: in adult Qualified Code(s): R62.7 - Adult failure to thrive - Time Spent With Patient Total time spent is greater than 50% in coordination of care (as documented) at patient's floor/unit and/or counseling patient: - Subjective Interval history: he relates to me this morning the pain medications are working. Patient is using less than what is prescribed and is doing well with it. I told him to use as little as much as he felt like he needed. - Constitutional Vitals: Abnormal lab results Hgb 11.8 g/dL (12.9-16.9) L 07/21/17 05:54 Hct 36.3 % (37.5-50.1) L 07/21/17 05:54 MCH 27.8 pg (28.0-33.3) L 07/21/17 05:54 Lymphocytes # 0.5 K/mcL (0.6-4.6) L 07/21/17 05:54 BUN/Creatinine Ratio 29 (6-26) H 07/21/17 05:54 Glucose 177 mg/dL (70-99) H 07/21/17 05:54 Albumin 3.2 g/dL (3.5-5.0) L 07/19/17 13:15 Globulin 3.6 g/dL (2.4-3.5) H 07/19/17 13:15 Albumin/Globulin Ratio 0.9 (1.1-2.2) L 07/19/17 13:15 General appearance: Present: no acute distress - Head Head exam: Present: atraumatic, normal inspection - ENT ENT exam: Present: mucous membranes moist - Respiratory Respiratory exam: Present: decreased breath sounds - Cardiovascular Cardiovascular exam: Present: RRR - GI/Abdominal GI/Abdominal exam: Present: normal bowel sounds, soft. Absent: tenderness - Extremities Exam Extremities exam: Present: normal inspection. Absent: tenderness - Neurological Exam Neurological exam: Present: alert - Psychiatric Psychiatric exam: Absent: agitated, anxious - Skin Skin exam: Present: dry, warm Palliative Quality Palliative Quality: Screen for Code Status: Yes, Screen for Goals of Care: Yes, Screen for Pain: Yes, If Pain Regimen Started, Initiate Bowel Regimen: Yes, Screen for Nausea/Vomitting: Yes - Labs CBC & Chem 7: 07/21/17 05:54 07/21/17 05:54 Labs: Laboratory Results - last 24 hr 07/21/17 07/21/17 05:54 05:54 WBC 5.1 RBC 4.24 Hgb 11.8 L Hct 36.3 L MCV 85.6 MCH 27.8 L MCHC 32.5 RDW 14.4 Plt Count 171 MPV 10.1 Immature Gran % 0.6 Seg Neutrophils % 87.3 Lymphocytes % 9.4 Monocytes % 2.5 Eosinophils % 0.0 Basophils % 0.2 Neutrophils # 4.5 Lymphocytes # 0.5 L Monocytes # 0.1 Eosinophils # 0.0 Basophils # 0.0 Sodium 139 Potassium 4.4 Chloride 105 Carbon Dioxide 28 BUN 22 Creatinine 0.76 Est GFR ( Amer) > 60 Est GFR (Non-Af Amer) > 60 BUN/Creatinine Ratio 29 H Glucose 177 H Calculated Osmolality 296 Calcium 9.6 - ABG Interpretation ABG results: PT/INR, D-dimer PT 10.7 Seconds (9.4-12.1) 07/20/17 04:36 Consult Discharge Plan - Plan Referrals: Jose Guadalupe Sierra MD [Primary Care Provider] - 07/24/17 3:15 pm (Please follow up as schedule...)
[2017-07-21] MEDS: Gabapentin 300 MG CAPSULE GTUBE SCH ×2 (07:57→23:58)
[2017-07-21] MEDS: *HR* Methadone 5 MG TABLET PO SCH ×2 (07:57→23:59)
--- NOTE | 2017-07-21 18:40 | Internal Med Progress Note ---
Date of Encounter: 07/21/17 Time of Encounter: 18:00 - Assessment and plan (1) Cancer associated pain Current Visit: Yes Status: Acute Assessment and plan: D/w Palliative team. From a symptomatic standpoint, patient is ready for discharge home. Will initiate treatment of lower respiratory tract infection. (2) Lower respiratory tract infection Current Visit: Yes Status: Acute Assessment and plan: Respiratory cultures + for GNR x2. Will start patient on Bactrim for coverage. Since patient is on methadone which can prolong QT, will not choose quinolones or azithromycin. (3) Facial mass Current Visit: Yes Status: Acute (4) Failure to thrive Current Visit: Yes Status: Acute Qualifiers: Failure to thrive age range: in adult Qualified Code(s): R62.7 - Adult failure to thrive (5) Goals of care, counseling/discussion Current Visit: Yes Status: Acute (6) Headache Current Visit: Yes Status: Acute Qualifiers: Headache type: unspecified Headache chronicity pattern: chronic headache Intractability: not intractable Qualified Code(s): R51 - Headache (7) Laryngeal cancer Current Visit: Yes Status: Acute (8) Malignancy Current Visit: Yes Status: Acute - Subjective Interval history: Swelling and dysphagia of mouth is improved. He has no new complaints. - Constitutional Vitals: Temp Pulse Resp BP Pulse Ox 97.0 F L 58 17 126/68 97 07/21/17 15:52 07/21/17 15:52 07/21/17 15:52 07/21/17 15:52 07/21/17 15:52 General appearance: Present: cooperative, mild distress, A&O X 3, pleasant, answers questions appropriately Exam: CVS: RRR Neck: Tracheostomy in place, so mucus but no purulent drainage. Lungs: Course breath sounds throughout. Good air exchange, faint exnd exp wheezing CVS: RRR Ext: no edema. Internal Medicine: Result - Labs CBC & Chem 7: 07/22/17 08:30 07/22/17 08:30 Labs: Short CBC 07/21/17 Range/Units 05:54 WBC 5.1 (4.3-11.1) K/mcL Hgb 11.8 L (12.9-16.9) g/dL Hct 36.3 L (37.5-50.1) % Plt Count 171 (140-400) K/mcL Neutrophils # 4.5 (1.6-8.9) K/mcL BMP 07/21/17 05:54 Sodium 139 Potassium 4.4 Chloride 105 Carbon Dioxide 28 BUN 22 Creatinine 0.76 Glucose 177 H Calcium 9.6 - ABG Interpretation ABG results: PT/INR, D-dimer PT 10.7 Seconds (9.4-12.1) 07/20/17 04:36 Consult Discharge Plan - Plan Referrals: Jose Guadalupe Sierra MD [Primary Care Provider] - 07/24/17 3:15 pm (Please follow up as schedule...)
[2017-07-21] MEDS: Melatonin 3 MG TABLET PO SCH (23:58)
[2017-07-22] MEDS: *HR* OxyCODONE Oral Soln 5 MG/5 ML UD.LIQ GTUBE PRN ×2 (00:05→20:35)
[2017-07-22 08:42] LABS: Basophils % 0.3 %; Hemoglobin 11.8 g/dL (12.9-16.9); Immature Granulocytes % 0.3 % (0-4); Lymphocytes # 0.6 K/mcL (0.6-4.6); Lymphocytes % 8.4 %; Mean Corpuscular HGB Conc 33.7 g/dL (31.6-35.5); Mean Corpuscular Hemoglobin 28.2 pg (28.0-33.3); Mean Corpuscular Volume 83.5 fL (83.0-100.0); Mean Platelet Volume 10.5 fL (9.4-12.4); Monocytes # 0.3 K/mcL (0.0-1.3); Monocytes % 4.5 %; Neutrophils # 6.5 K/mcL (1.6-8.9); Platelet Count 172 K/mcL (140-400); Red Blood Count 4.19 M/mcL (4.19-5.50); Red Cell Distribution Width 14.3 % (11.5-14.5); Segmented Neutrophils % 86.5 %
[2017-07-22] MEDS: *HR* Methadone 5 MG TABLET PO SCH ×2 (08:54→20:34)
[2017-07-22 08:55] LABS: BUN/Creatinine Ratio 33 (6-26); Blood Urea Nitrogen 24 mg/dL (8-26); Calcium 9.7 mg/dL (8.6-10.8); Carbon Dioxide 26 mEq/L (19-29); Chloride 102 mEq/L (98-109); Glucose 140 mg/dL (70-99); Osmolality,Calculated 290 (280-300); Potassium 4.4 mEq/L (3.5-4.5); Sodium 137 mEq/L (136-145); eGFR For African Americans > 60 (> 60); eGFR For Non-African Americans > 60 (> 60)
[2017-07-22] MEDS: Gabapentin 300 MG CAPSULE GTUBE SCH ×2 (08:55→20:34)
[2017-07-22] MEDS: Sulfamethoxazole/Trimeth DS 1 EACH TABLET PO SCH ×2 (08:55→20:34)
--- NOTE | 2017-07-22 18:34 | Internal Med Progress Note ---
Date of Encounter: 07/22/17 Time of Encounter: 14:00 - Assessment and plan (1) Lower respiratory tract infection Current Visit: Yes Status: Acute Assessment and plan: Okay to DC tomorrow if blood cultures negative. Avoid quinolones and azithromycin since he is already on methadone which also prolongs QT intervals. (2) Cancer associated pain Current Visit: Yes Status: Acute Assessment and plan: Patient symptoms stable. (3) Facial mass Current Visit: Yes Status: Acute (4) Failure to thrive Current Visit: Yes Status: Acute Qualifiers: Failure to thrive age range: in adult Qualified Code(s): R62.7 - Adult failure to thrive (5) Goals of care, counseling/discussion Current Visit: Yes Status: Acute (6) Headache Current Visit: Yes Status: Acute Qualifiers: Headache type: unspecified Headache chronicity pattern: chronic headache Intractability: not intractable Qualified Code(s): R51 - Headache (7) Laryngeal cancer Current Visit: Yes Status: Acute (8) Malignancy Current Visit: Yes Status: Acute (9) Tracheostomy in place Current Visit: Yes Status: Chronic - Subjective Interval history: No complaints. Denies SOB, cough, fevers/chills, n/v. - Constitutional Vitals: Temp Pulse Resp BP Pulse Ox 97.4 F L 72 17 147/70 100 07/22/17 06:27 07/22/17 16:38 07/22/17 16:38 07/22/17 16:38 07/22/17 16:38 General appearance: Present: cooperative, mild distress, A&O X 3, pleasant, answers questions appropriately Exam: Gen: NAD Lungs: CTAB CVS: RRR Ext: no edema Neck: diffuse swelling, trach in place without purulent drainage. Internal Medicine: Result - Labs CBC & Chem 7: 07/22/17 08:30 07/22/17 08:30 Labs: Short CBC 07/22/17 Range/Units 08:30 WBC 7.5 (4.3-11.1) K/mcL Hgb 11.8 L (12.9-16.9) g/dL Hct 35.0 L (37.5-50.1) % Plt Count 172 (140-400) K/mcL Neutrophils # 6.5 (1.6-8.9) K/mcL BMP 07/22/17 08:30 Sodium 137 Potassium 4.4 Chloride 102 Carbon Dioxide 26 BUN 24 Creatinine 0.72 Glucose 140 H Calcium 9.7 - ABG Interpretation ABG results: PT/INR, D-dimer PT 10.7 Seconds (9.4-12.1) 07/20/17 04:36 Consult Discharge Plan - Plan Referrals: Jose Guadalupe Sierra MD [Primary Care Provider] - 07/24/17 3:15 pm (Please follow up as schedule...)
[2017-07-22] MEDS: Melatonin 3 MG TABLET PO SCH (20:34)
[2017-07-23 06:14] LABS: BUN/Creatinine Ratio 28 (6-26); Basophils % 0.1 %; Blood Urea Nitrogen 23 mg/dL (8-26); Calcium 9.8 mg/dL (8.6-10.8); Carbon Dioxide 26 mEq/L (19-29); Chloride 103 mEq/L (98-109); Glucose 133 mg/dL (70-99); Hematocrit 34.2 % (37.5-50.1); Hemoglobin 11.3 g/dL (12.9-16.9); Immature Granulocytes % 0.3 % (0-4); Lymphocytes # 0.6 K/mcL (0.6-4.6); Lymphocytes % 9.3 %; Mean Corpuscular Hemoglobin 27.6 pg (28.0-33.3); Mean Corpuscular Volume 83.6 fL (83.0-100.0); Monocytes # 0.2 K/mcL (0.0-1.3); Monocytes % 3.6 %; Neutrophils # 5.8 K/mcL (1.6-8.9); Osmolality,Calculated 292 (280-300); Platelet Count 161 K/mcL (140-400); Potassium 4.2 mEq/L (3.5-4.5); Red Blood Count 4.09 M/mcL (4.19-5.50); Red Cell Distribution Width 14.4 % (11.5-14.5); Segmented Neutrophils % 86.7 %; Sodium 138 mEq/L (136-145); eGFR For African Americans > 60 (> 60); eGFR For Non-African Americans > 60 (> 60)
--- NOTE | 2017-07-23 07:43 | Palliative Progress Note ---
Date of Encounter: 07/23/17 Time of Encounter: 07:10 - Assessment and plan (1) Cancer associated pain Current Visit: Yes Status: Acute Assessment and plan: Appears to be under good control this time continue present meds I will write for a week's worth of medications he can follow up at the cancer center on discharge. (2) Constipation by delayed colonic transit Current Visit: Yes Status: Acute Assessment and plan: Currently on bowel regimen, observed today and adjust tomorrow as needed. Increase senna today. No bowel movement yet. (3) Goals of care, counseling/discussion Current Visit: Yes Status: Acute Assessment and plan: CODE STATUS established DNR CCA DNI. Wish to have chemotherapy for his neck cancer. This will be done at [facility]. She will follow-up at the cancer center for pain medications as well. (4) Facial mass Current Visit: Yes Status: Acute Assessment and plan: Chemotherapy to continue as an outpatient. (5) Failure to thrive Current Visit: Yes Status: Acute Assessment and plan: Nutrition is following. Patient getting feedings through the G-tube. I think now that the patient can swallow and he was able to drink some coffee this morning's overall outlook appears to be much much brighter. His prognosis continues to be extremely poor. Qualifiers: Failure to thrive age range: in adult Qualified Code(s): R62.7 - Adult failure to thrive - Time Spent With Patient Total time spent is greater than 50% in coordination of care (as documented) at patient's floor/unit and/or counseling patient: - Subjective Interval history: he relates to me this morning the pain medications are working and doing so well. Patient also relates that his swelling is better and he is able to now drink liquids is making him extremely happy. He is hopeful he will be leaving soon. He understands we are waiting on the results of blood culture. - Constitutional Vitals: Abnormal lab results RBC 4.09 M/mcL (4.19-5.50) L 07/23/17 05:47 Hgb 11.3 g/dL (12.9-16.9) L 07/23/17 05:47 Hct 34.2 % (37.5-50.1) L 07/23/17 05:47 MCH 27.6 pg (28.0-33.3) L 07/23/17 05:47 BUN/Creatinine Ratio 28 (6-26) H 07/23/17 05:47 Glucose 133 mg/dL (70-99) H 07/23/17 05:47 Albumin 3.2 g/dL (3.5-5.0) L 07/19/17 13:15 Globulin 3.6 g/dL (2.4-3.5) H 07/19/17 13:15 Albumin/Globulin Ratio 0.9 (1.1-2.2) L 07/19/17 13:15 General appearance: Present: no acute distress - Head Head exam: Present: atraumatic, normal inspection (Swelling left side of face is better. Patient is now able to open his mouth much better.) - Eye Eye exam: Present: normal appearance - ENT ENT exam: Present: mucous membranes moist. Absent: normal oropharynx (Swelling left side of face is improved, patient is now able to open his mouth adequately to be able to drink.) - Respiratory Respiratory exam: Present: CTAB - Cardiovascular Cardiovascular exam: Present: RRR - GI/Abdominal GI/Abdominal exam: Present: normal bowel sounds, soft. Absent: tenderness - Extremities Exam Extremities exam: Present: normal inspection. Absent: pedal edema, tenderness - Neurological Exam Neurological exam: Present: alert, oriented X3 - Psychiatric Psychiatric exam: Absent: agitated, anxious - Skin Skin exam: Present: dry, warm Palliative Quality Palliative Quality: Screen for Code Status: Yes, Screen for Goals of Care: Yes, Screen for Pain: Yes, If Pain Regimen Started, Initiate Bowel Regimen: Yes, Screen for Nausea/Vomitting: Yes - Labs CBC & Chem 7: 07/23/17 05:47 07/23/17 05:47 Labs: Laboratory Results - last 24 hr 07/22/17 07/22/17 07/23/17 08:30 08:30 05:47 WBC 7.5 6.7 RBC 4.19 4.09 L Hgb 11.8 L 11.3 L Hct 35.0 L 34.2 L MCV 83.5 83.6 MCH 28.2 27.6 L MCHC 33.7 33.0 RDW 14.3 14.4 Plt Count 172 161 MPV 10.5 11.0 Immature Gran % 0.3 0.3 Seg Neutrophils % 86.5 86.7 Lymphocytes % 8.4 9.3 Monocytes % 4.5 3.6 Eosinophils % 0.0 0.0 Basophils % 0.3 0.1 Neutrophils # 6.5 5.8 Lymphocytes # 0.6 0.6 Monocytes # 0.3 0.2 Eosinophils # 0.0 0.0 Basophils # 0.0 0.0 Sodium 137 Potassium 4.4 Chloride 102 Carbon Dioxide 26 BUN 24 Creatinine 0.72 Est GFR ( Amer) > 60 Est GFR (Non-Af Amer) > 60 BUN/Creatinine Ratio 33 H Glucose 140 H Calculated Osmolality 290 Calcium 9.7 07/23/17 05:47 WBC RBC Hgb Hct MCV MCH MCHC RDW Plt Count MPV Immature Gran % Seg Neutrophils % Lymphocytes % Monocytes % Eosinophils % Basophils % Neutrophils # Lymphocytes # Monocytes # Eosinophils # Basophils # Sodium 138 Potassium 4.2 Chloride 103 Carbon Dioxide 26 BUN 23 Creatinine 0.81 Est GFR ( Amer) > 60 Est GFR (Non-Af Amer) > 60 BUN/Creatinine Ratio 28 H Glucose 133 H Calculated Osmolality 292 Calcium 9.8 - ABG Interpretation ABG results: PT/INR, D-dimer PT 10.7 Seconds (9.4-12.1) 07/20/17 04:36 Consult Discharge Plan - Plan Referrals: Jose Guadalupe Sierra MD [Primary Care Provider] - 07/24/17 3:15 pm (Please follow up as schedule...)
[2017-07-23] MEDS: *HR* Methadone 5 MG TABLET PO SCH ×2 (08:57→22:02)
[2017-07-23] MEDS: Sulfamethoxazole/Trimeth DS 1 EACH TABLET PO SCH (08:57)
[2017-07-23] MEDS: *HR* OxyCODONE Oral Soln 5 MG/5 ML UD.LIQ GTUBE PRN (08:57)
[2017-07-23] MEDS: Gabapentin 300 MG CAPSULE GTUBE SCH ×2 (08:57→22:02)
[2017-07-23] MEDS: Cefepime HCl 2,000 MG in D5% in Water (Mini-Bag+) 100 ML IVPB SCH (15:35)
[2017-07-23] MEDS: Melatonin 3 MG TABLET PO SCH (22:03)
[2017-07-24] MEDS: *HR* OxyCODONE Oral Soln 5 MG/5 ML UD.LIQ GTUBE PRN (00:03)
[2017-07-24] MEDS: Cefepime HCl 2,000 MG in D5% in Water (Mini-Bag+) 100 ML IVPB SCH ×2 (02:33→14:54)
--- NOTE | 2017-07-24 02:33 | Internal Med Progress Note ---
Date of Encounter: 07/23/17 Time of Encounter: 14:00 - Assessment and plan (1) Lower respiratory tract infection Current Visit: Yes Status: Acute Assessment and plan: Secondary to Pseudomonas. BCx negative growth to date Sensitivity includes Cefepime. He will need to have home IV abx arranged. CM aware of this. (2) Cancer associated pain Current Visit: Yes Status: Acute (3) Facial mass Current Visit: Yes Status: Acute (4) Failure to thrive Current Visit: Yes Status: Acute Qualifiers: Failure to thrive age range: in adult Qualified Code(s): R62.7 - Adult failure to thrive (5) Goals of care, counseling/discussion Current Visit: Yes Status: Acute (6) Headache Current Visit: Yes Status: Acute Qualifiers: Headache type: unspecified Headache chronicity pattern: chronic headache Intractability: not intractable Qualified Code(s): R51 - Headache (7) Laryngeal cancer Current Visit: Yes Status: Acute (8) Malignancy Current Visit: Yes Status: Acute (9) Tracheostomy in place Current Visit: Yes Status: Chronic - Subjective Interval history: No complaints, swelling of face is stable. Denies SOB, but he does get cough with sputum. Pseudomonas grew in trach sputum cultures. Was planned to go home on Levaquin but sensitivities came back today showing resistance to PO abx. - Constitutional Vitals: Temp Pulse Resp BP Pulse Ox 96.6 F L 52 117 140/68 99 07/23/17 22:49 07/23/17 22:49 07/23/17 22:49 07/23/17 22:49 07/23/17 22:49 General appearance: Present: cooperative, mild distress, A&O X 3, pleasant, answers questions appropriately Exam: Head: swelling of left neck and jaw is relatively unchanged since yesterday but overall improved in past few days. CVS: RRR Lungs: CTAB Trach: patent, no purulent drainage Ext: no edema PEG tube in place. Internal Medicine: Result - Labs CBC & Chem 7: 07/23/17 05:47 07/23/17 05:47 Labs: Short CBC 07/23/17 Range/Units 05:47 WBC 6.7 (4.3-11.1) K/mcL Hgb 11.3 L (12.9-16.9) g/dL Hct 34.2 L (37.5-50.1) % Plt Count 161 (140-400) K/mcL Neutrophils # 5.8 (1.6-8.9) K/mcL BMP 07/23/17 05:47 Sodium 138 Potassium 4.2 Chloride 103 Carbon Dioxide 26 BUN 23 Creatinine 0.81 Glucose 133 H Calcium 9.8 - ABG Interpretation ABG results: PT/INR, D-dimer PT 10.7 Seconds (9.4-12.1) 07/20/17 04:36 Consult Discharge Plan - Plan Referrals: Jose Guadalupe Sierra MD [Primary Care Provider] - 07/24/17 3:15 pm (Please follow up as schedule...) Prescriptions: Methadone Oral Concentrate [Methadone] 5 mg GTUBE BID #10 mls OxyCODONE Oral Soln [OxyCODONE ORAL SOLN] 10 mg GTUBE Q4H 7 Days #500 mls Sennosides [Senna] 17.6 mg PO BID #100 mls
[2017-07-24 07:24] LABS: BUN/Creatinine Ratio 25 (6-26); Blood Urea Nitrogen 22 mg/dL (8-26); Calcium 9.8 mg/dL (8.6-10.8); Carbon Dioxide 24 mEq/L (19-29); Chloride 102 mEq/L (98-109); Glucose 148 mg/dL (70-99); Osmolality,Calculated 284 (280-300); Potassium 4.4 mEq/L (3.5-4.5); Sodium 134 mEq/L (136-145); eGFR For African Americans > 60 (> 60); eGFR For Non-African Americans > 60 (> 60)
[2017-07-24] MEDS: *HR* Methadone 5 MG TABLET PO SCH (09:36)
[2017-07-24] MEDS: Gabapentin 300 MG CAPSULE GTUBE SCH (09:36)
[2017-07-24 10:41] LABS: Hematocrit 36.3 % (37.5-50.1); Hemoglobin 12.6 g/dL (12.9-16.9); Lymphocytes # 0.7 K/mcL (0.6-4.6); Mean Corpuscular HGB Conc 34.7 g/dL (31.6-35.5); Mean Corpuscular Hemoglobin 28.3 pg (28.0-33.3); Mean Corpuscular Volume 81.4 fL (83.0-100.0); Mean Platelet Volume 12.5 fL (9.4-12.4); Monocytes # 0.5 K/mcL (0.0-1.3); Neutrophils # 7.4 K/mcL (1.6-8.9); Nucleated Red Blood Cells 0.2 /100 WBC (0); Platelet Count 162 K/mcL (140-400); Red Blood Count 4.46 M/mcL (4.19-5.50); Red Cell Distribution Width 14.5 % (11.5-14.5)
[2017-07-24 10:48] LABS: Platelet Estimate Normal (Normal)
--- NOTE | 2017-07-24 11:03 | Palliative Progress Note ---
Date of Encounter: 07/24/17 Time of Encounter: 09:15 - Assessment and plan (1) Cancer associated pain Current Visit: Yes Status: Acute Assessment and plan: Appears to be under good control this time continue present meds I will write for a week's worth of medications he can follow up at the cancer center on discharge. Scrips are on the chart. (2) Constipation by delayed colonic transit Current Visit: Yes Status: Acute Assessment and plan: Currently on bowel regimen, observed today and adjust tomorrow as needed. Increase senna today. No bowel movement yet. She is refusing bowel regimen at this time continue to watch. (3) Goals of care, counseling/discussion Current Visit: Yes Status: Acute Assessment and plan: CODE STATUS established DNR CCA DNI. Wish to have chemotherapy for his neck cancer. This will be done at [facility]. She will follow-up at the [facility] for pain medications as well. (4) Facial mass Current Visit: Yes Status: Acute Assessment and plan: Chemotherapy to continue as an outpatient. (5) Failure to thrive Current Visit: Yes Status: Acute Assessment and plan: Nutrition is following. Patient getting feedings through the G-tube. I think now that the patient can swallow and he was able to drink some coffee this morning's overall outlook appears to be much much brighter. His prognosis continues to be extremely poor. Qualifiers: Failure to thrive age range: in adult Qualified Code(s): R62.7 - Adult failure to thrive - Time Spent With Patient Total time spent is greater than 50% in coordination of care (as documented) at patient's floor/unit and/or counseling patient: - Subjective Interval history: he relates to me this morning the pain medications are working and doing so well. Patient also relates that his swelling is better and he is able to now drink liquids is making him extremely happy. Blood cultures are negative this morning, however the patient will be maintained on a Rx. There is also some issues with his tube feeds area social work is working on that and planning is working with the IV antibiotics. - Constitutional Vitals: Abnormal lab results RBC 4.09 M/mcL (4.19-5.50) L 07/23/17 05:47 Hgb 11.3 g/dL (12.9-16.9) L 07/23/17 05:47 Hct 34.2 % (37.5-50.1) L 07/23/17 05:47 MCH 27.6 pg (28.0-33.3) L 07/23/17 05:47 Sodium 134 mEq/L (136-145) L 07/24/17 06:59 Glucose 148 mg/dL (70-99) H 07/24/17 06:59 Albumin 3.2 g/dL (3.5-5.0) L 07/19/17 13:15 Globulin 3.6 g/dL (2.4-3.5) H 07/19/17 13:15 Albumin/Globulin Ratio 0.9 (1.1-2.2) L 07/19/17 13:15 General appearance: Present: no acute distress - Head Head exam: Present: atraumatic, normal inspection - Eye Eye exam: Present: normal appearance - ENT ENT exam: Present: mucous membranes moist (Swelling left side of face much improved) - Respiratory Respiratory exam: Present: decreased breath sounds - Cardiovascular Cardiovascular exam: Present: RRR - GI/Abdominal GI/Abdominal exam: Present: normal bowel sounds, soft. Absent: tenderness - Extremities Exam Extremities exam: Present: normal inspection. Absent: pedal edema, tenderness - Neurological Exam Neurological exam: Present: alert, oriented X3 - Psychiatric Psychiatric exam: Absent: agitated, anxious - Skin Skin exam: Present: dry, warm Palliative Quality Palliative Quality: Screen for Code Status: Yes, Screen for Goals of Care: Yes, Screen for Pain: Yes, If Pain Regimen Started, Initiate Bowel Regimen: Yes, Screen for Nausea/Vomitting: Yes - Labs CBC & Chem 7: 07/23/17 05:47 07/24/17 06:59 Labs: Laboratory Results - last 24 hr 07/24/17 07/24/17 06:59 06:59 Seg Neutrophils % 86.0 Lymphocytes % 8.0 Monocytes % 6.0 Neutrophils # 7.4 Lymphocytes # 0.7 Monocytes # 0.5 Platelet Estimate Normal Sodium 134 L Potassium 4.4 Chloride 102 Carbon Dioxide 24 BUN 22 Creatinine 0.88 Est GFR ( Amer) > 60 Est GFR (Non-Af Amer) > 60 BUN/Creatinine Ratio 25 Glucose 148 H Calculated Osmolality 284 Calcium 9.8 - ABG Interpretation ABG results: PT/INR, D-dimer PT 10.7 Seconds (9.4-12.1) 07/20/17 04:36 Consult Discharge Plan - Plan Referrals: Jose Guadalupe Sierra MD [Primary Care Provider] - 07/24/17 3:15 pm (Please follow up as schedule...) Prescriptions: Gabapentin 300 mg PO BID #120 solution Methadone Oral Concentrate [Methadone] 5 mg GTUBE BID #10 mls OxyCODONE Oral Soln [OxyCODONE ORAL SOLN] 10 mg GTUBE Q4H 7 Days #500 mls Sennosides [Senna] 17.6 mg PO BID #100 mls
--- NOTE | 2017-07-24 12:26 | Electrocardiograph Report ---
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
--- NOTE | 2017-07-24 14:43 | Discharge Summary ---
Date of Encounter: 07/24/17 Time of Encounter: 11:50 - Discharge Diagnosis (1) Bacterial tracheitis Priority: Primary Status: Acute (2) Lower respiratory tract infection Priority: Secondary Status: Acute (3) Cancer associated pain Priority: Secondary Status: Acute (4) DVT prophylaxis Priority: Secondary Status: Acute (5) Facial mass Priority: Secondary Status: Acute (6) Failure to thrive Priority: Secondary Status: Chronic Qualifiers: Failure to thrive age range: in adult Qualified Code(s): R62.7 - Adult failure to thrive (7) Headache Priority: Secondary Status: Resolved Qualifiers: Headache type: unspecified Headache chronicity pattern: chronic headache Intractability: not intractable Qualified Code(s): R51 - Headache (8) Laryngeal cancer Priority: Secondary Status: Acute (9) Tracheostomy in place Priority: Secondary Status: Chronic (10) Status post insertion of percutaneous endoscopic gastrostomy (PEG) tube Priority: Secondary Status: Chronic - Discharge Medications Prescriptions: Cefepime HCl [Maxipime] 2,000 mg IVPB Q12HR #22 vial Dexamethasone [Decadron] 4 mg PO BID #21 tablet Gabapentin 300 mg PO BID #120 solution Methadone Oral Concentrate [Methadone] 5 mg GTUBE BID #10 mls OxyCODONE Oral Soln [OxyCODONE ORAL SOLN] 10 mg GTUBE Q4H 7 Days #500 mls Sennosides [Senna] 17.6 mg PO BID #100 mls Home Medications: Lactose-Reduced Food/Fiber [Jevity 1.5 Leeroy Liquid] 1 can PO AD 07/19/17 [History ] Levothyroxine [Synthroid] 125 mcg GTUBE QAM 07/19/17 [History] Prochlorperazine Maleate [Compazine] 10 mg GTUBE Q8HR PRN 07/19/17 [History] Methadone Oral Concentrate [Methadone] 5 mg GTUBE BID #10 mls 07/23/17 [Rx] OxyCODONE Oral Soln [OxyCODONE ORAL SOLN] 10 mg GTUBE Q4H 7 Days #500 mls [Rx] Sennosides [Senna] 17.6 mg PO BID #100 mls 07/23/17 [Rx] Cefepime HCl [Maxipime] 2,000 mg IVPB Q12HR #22 vial 07/24/17 [Rx] Dexamethasone [Decadron] 4 mg PO BID #21 tablet 07/24/17 [Rx] Gabapentin 300 mg PO BID #120 solution 07/24/17 [Rx] Allergies/Adverse Reactions: 3 Allergy/AdvReac Type Severity Reaction Status Date / Time No Known Allergies Allergy Verified 07/19/17 12:02 Procedures/tests Complete & Pending: Procedures Performed prior 72 hours Category Date Time Status EKG [ECG 12 lead ECG] [ECG] Routine Y 07/23/17 09:14 Completed Date of admission: 07/20/17 08:17 Primary care physician: Jose Guadalupe Sierra MD Consults: 07/20/17 08:31 Consult to Palliative Care [CONS] Routine Comment: Consulting Provider: Palliative [facility] Reason for Consult: Laryngeal cancer, mets to lungs Time Notified: 08:32 Call Completed: Yes 07/20/17 08:32 Consult to Oncology [CONS] Routine Consulting Provider: Oncology [facility] Reason for Consult: Laryngeal cancer, mets to lung Time Notified: 08:20 Call Completed: Yes 07/21/17 13:04 Consult to Speech Therapy [CONS] Routine Comment: Evaluate, develop and implement POC Reason for Consult: Left sided face mass, making it hard to swallow food and drink x3 weeks Call Completed: No 07/23/17 14:34 Consult to Speech Therapy [CONS] Routine Comment: Evaluate, develop and implement POC Reason for Consult: Passy Maryann Valve Call Completed: Yes 07/24/17 11:41 Consult to Invasive Line Access Team [CONS] Routine Reason for Consult: home antibiotic Line Type: EPIV Discharging clinician: Chaka Causey Anticipated date of discharge: 07/24/17 - Patient Status Disposition: Home Health Service Condition: Fair Functional capacity at discharge: independent ambulation Overall status at discharge: patient is progressing back to baseline - Discharge Instructions Follow Up With: Jose Guadalupe Sierra MD [Primary Care Provider] - 07/30/17 1:00 pm (Please follow up as schedule...) - Diet and Activity Activity: increase activity as tolerated Diet: other (PEG tube feeds; thin liquids, small bites and sips) Hospital course: Mr. 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 This was initially suspected to be related to his laryngeal cancer and patient was treated with intravenous narcotic medications to control his pain. Palliative care was also consulted. The patient mainly complained of difficulty opening his mouth and swallowing due to the swelling in his face. As such he was started on steroids with improvement in his symptoms. Also cultures drawn from his tracheostomy site for positive for pseudomonas and so he was started on treatment for this with ciprofloxacin. However sensitivity showed that the bacteria was resistant to quinolones. He was then switched over to cefepime. His culture was also positive for Escherichia coli pansensitive. He has since responded well to treatment with steroids and IV cefepime. He is now doing much better and is able to open his mouth better. He is also able to swallow thin liquids and small bites of food well. At this time, he is stable to be discharged home with home IV cefepime to treat his lower respiratory tract infection. He will follow-up with his primary care provider and oncologist for further management. He will also be discharged on a tapering course of Decadron. Palliative care was consulted and helped manage his care here. Patient's CODE STATUS is DNR comfort care arrest DNI - Time Spent with Patient Total time spent providing and/or coordinating discharge services: Greater than 30 minutes (35 min) - Constitutional Vitals: Temp Pulse Resp BP Pulse Ox 97.4 F L 54 17 129/65 98 07/24/17 10:38 07/24/17 10:38 07/24/17 10:38 07/24/17 10:38 07/24/17 10:38 General appearance: Present: cooperative, mild distress, A&O X 3, pleasant, answers questions appropriately - ENT Additional comments: Trach in place; Swelling involving the left lower half of face - Neck Neck exam general surgery: Present: lymphadenopathy, supple, trachea midline - Respiratory Respiratory exam: Present: CTAB. Absent: accessory muscle use, rales, rhonchi, wheezes - Cardiovascular Cardiovascular exam: Present: RRR, +S1, +S2. Absent: diastolic murmur, gallop, rubs, systolic murmur - GI/Abdominal GI/Abdominal exam: Present: normal bowel sounds, soft, no peritoneal signs. Absent: distended, tenderness - Extremities Exam Extremities exam: Present: warm, radial pulses palpable and symmetrical. Absent : calf tenderness, cyanotic, pedal edema
--- NOTE | 2017-07-24 14:53 | Physician Discharge Referral ---
Home Health/Hosp Referral Info Transfer to: Home Health Provider in Charge Post Discharge: PCP - Diagnosis (1) Bacterial tracheitis Priority: Primary Status: Acute (2) Lower respiratory tract infection Priority: Secondary Status: Acute (3) Cancer associated pain Priority: Secondary Status: Acute (4) DVT prophylaxis Priority: Secondary Status: Acute (5) Facial mass Priority: Secondary Status: Acute (6) Failure to thrive Priority: Secondary Status: Chronic (7) Headache Priority: Secondary Status: Resolved (8) Laryngeal cancer Priority: Secondary Status: Acute (9) Tracheostomy in place Priority: Secondary Status: Chronic (10) Status post insertion of percutaneous endoscopic gastrostomy (PEG) tube Priority: Secondary Status: Chronic - Respiratory Orders Smoking Cessation: Smoking cessation has been advised. For more information, call the [facility] [employer] Quit Line at 2-149-ZZOK-NOW. - Diet/Nutrition Diet/Nutrition: List: Thin liquids, small sips and bites - Activity Activity Orders: Up ad mario - Services Needed Following services are medically necessary services: Nursing, Home Infusion - Transfer Medications Prescriptions: Cefepime HCl [Maxipime] 2,000 mg IVPB Q12HR #22 vial Dexamethasone [Decadron] 4 mg PO BID #21 tablet Gabapentin 300 mg PO BID #120 solution Methadone Oral Concentrate [Methadone] 5 mg GTUBE BID #10 mls OxyCODONE Oral Soln [OxyCODONE ORAL SOLN] 10 mg GTUBE Q4H 7 Days #500 mls Sennosides [Senna] 17.6 mg PO BID #100 mls Home Medications: Lactose-Reduced Food/Fiber [Jevity 1.5 Leeroy Liquid] 1 can PO AD 07/19/17 [History ] Levothyroxine [Synthroid] 125 mcg GTUBE QAM 07/19/17 [History] Prochlorperazine Maleate [Compazine] 10 mg GTUBE Q8HR PRN 07/19/17 [History] Methadone Oral Concentrate [Methadone] 5 mg GTUBE BID #10 mls 07/23/17 [Rx] OxyCODONE Oral Soln [OxyCODONE ORAL SOLN] 10 mg GTUBE Q4H 7 Days #500 mls [Rx] Sennosides [Senna] 17.6 mg PO BID #100 mls 07/23/17 [Rx] Cefepime HCl [Maxipime] 2,000 mg IVPB Q12HR #22 vial 07/24/17 [Rx] Dexamethasone [Decadron] 4 mg PO BID #21 tablet 07/24/17 [Rx] Gabapentin 300 mg PO BID #120 solution 07/24/17 [Rx] Allergies/Adverse Reactions: 3 Allergy/AdvReac Type Severity Reaction Status Date / Time No Known Allergies Allergy Verified 07/19/17 12:02 Certification: Further, I certify that my clinical findings support that this patient is homebound (i.e. absences from home require considerable and taxing effort and are for medical reasons or advent services or infrequently or short duration when for other reasons) because: Homebound Reason: Patient requires assistance of a person or device to safely leave home (Patient requires intravenous antibiotics and has underlying malignancy) Attestation: My signature below is to certify that this patient is under my care and that I, or nurse practitioner, or a physician's bindery assistant working with me, has a face-to -face encounter with this patient.
[2017-07-24 16:24] VITALS: BP 124/72
== END 2017-07-24 18:20 | disposition home health service (06) | DRG 202 ==
LOC: 2ANU 11:55 → EMEROO 11:55 → 2ANU 17:35 → SUATTDRO 07-20 08:17
PROVIDERS: ADMIT Student in an Organized Health Care Education/Training Program; ATTEND Internal Medicine

== ENCOUNTER 2017-07-27 12:40 | Inpatient (IN) ==
--- NOTE | 2017-07-27 12:50 | Emergency Department Note ---
Disposition Clinical Impression: Confusion, Tracheostomy in place, Tracheitis Nausea & vomiting Qualifiers: Vomiting type: unspecified Vomiting Intractability: non-intractable Qualified Code(s): R11.2 - Nausea with vomiting, unspecified Disposition: Admitted As Inpatient Condition: Fair Referrals: Jose Guadalupe Sierra MD [Primary Care Provider] - Forms: ED Satisfaction Letter, Work/School Release Time of Disposition: 15:40 General Adult HPI - General Chief complaint: ED General Medical Stated complaint: lethargic, previous infection Time Seen by Provider: 07/27/17 12:43 Source: patient, EMS Mode of arrival: EMS Limitations: other (Trach patient) Nursing Notes Reviewed: Yes Vital Signs Reviewed: Yes - History of Present Illness HPI Narrative: 41-year-old. 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 Cultures grew out pseudomonas sensitive to cefepime. Home health states that the patient has gone downhill since coming home it's more confused complaining of headache. On arrival he is awake and alert vital signs are stable. Pt Subjective Complaint: Confusion headache history of bacterial tracheitis Onset (ago): day(s) Location: head Radiation: non-radiation Pain Severity: moderate Quality: aching Consistency: constant Improves with: nothing Worsens with: nothing Associated symptoms: Reports: confusion - Related Data Home Medications Medication Instructions Recorded Confirmed Lactose-Reduced Food/Fiber [Jevity 1 can PO AD 07/19/17 07/19/17 1.5 Leeroy Liquid] Levothyroxine [Synthroid] 125 mcg GTUBE QAM 07/19/17 07/19/17 Prochlorperazine Maleate 10 mg GTUBE Q8HR PRN 07/19/17 07/19/17 [Compazine] Previous Rx's Medication Instructions Recorded Methadone Oral Concentrate 5 mg GTUBE BID #10 mls 07/23/17 [Methadone] OxyCODONE Oral Soln [OxyCODONE 10 mg GTUBE Q4H 7 Days #500 mls 07/23/17 ORAL SOLN] Sennosides [Senna] 17.6 mg PO BID #100 mls 07/23/17 Cefepime HCl [Maxipime] 2,000 mg IVPB Q12HR #22 vial 07/24/17 Dexamethasone [Decadron] 4 mg PO BID #21 tablet 07/24/17 Gabapentin 300 mg PO BID #120 solution 07/24/17 Allergies Allergy/AdvReac Type Severity Reaction Status Date / Time No Known Allergies Allergy Verified 07/19/17 12:02 Constitutional: Reports: chills, weakness. Denies: fever, weight change Eyes: Denies: eye pain, eye discharge, vision change ENT ED: Denies: ear pain, throat pain, dental pain, hearing loss, epistaxis, congestion, dysphagia Cardiovascular: Denies: chest pain, palpitations, dyspnea on exertion, edema, syncope Respiratory: Reports: cough. Denies: dyspnea, wheezes, hemoptysis, stridor Gastrointestinal: Denies: abdominal pain, nausea, vomiting, diarrhea, constipation, hematemesis, melena, hematochezia Genitourinary: Denies: urgency, dysuria, frequency, hematuria Musculoskeletal: Denies: back pain, neck pain, arthralgia, myalgia Integumentary: Denies: rash, abrasion, lesions Neurological: Reports: headache. Denies: weakness, numbness, paresthesias, confusion, abnormal gait, vertigo Psychiatric: Denies: anxiety, depression, suicidal thoughts, homicidal thoughts , auditory hallucinations, visual hallucinations Endocrine: Denies: fatigue Hematological/Lymphatic: Denies: easy bleeding, easy bruising Allergic/Immunologic: Denies: facial swelling, urticaria Past Medical History - Past Medical History Medical history: Reports: asthma, cancer, COPD, hypertension Surgical history: Reports: non-contributory Psychiatric history: Reports: no psych history - Social History Smoking Status: Former smoker Smokeless Tobacco Status: No Alcohol use: Reports: none Drug use: Reports: none Physical Exam - General Limitations: no limitations General appearance: alert, in no apparent distress - Head Head exam: atraumatic, normocephalic, normal inspection - Eye Eye exam: Present: normal appearance, PERRL, EOMI - ENT ENT exam: normal exam, normal oropharynx, mucous membranes moist - Neck Neck exam: Present: normal inspection, full ROM, trachea midline - Chest Chest inspection: Present: normal inspection, symmetric chest wall rise - Respiratory Respiratory exam: Present: normal lung sounds bilaterally - Cardiovascular Cardiovascular exam: Present: regular rate, normal rhythm, normal heart sounds - Abdominal Exam Abdominal exam: Present: soft, Non-Tender. Absent: tenderness, distention, guarding, rebound, rigidity - Extremities Exam Extremities exam: Present: normal inspection, full ROM. Absent: tenderness, pedal edema - Expanded Lower Extremity Exam Neurovascular/Tendon exam: Absent: motor deficit, sensory deficit, tendon deficit Gait: not tested/not observed - Back Exam Back exam: Present: normal inspection, full ROM. Absent: tenderness - Neurological Exam Neurological exam: Present: alert, oriented X3. Absent: motor sensory deficit - Psychiatric Psychiatric exam: Present: normal affect, normal mood - Skin Skin exam: Present: warm, dry, intact, normal color Course - Reevaluation(s) Reevaluation #1: Caregiver arrives and states that the palm she's having is when she gets the meds through the G-tube that he vomits it up since yesterday. She is concerned is becoming dehydrated. Time: 15:39 - Consultations Consultation #1: Discussed with melanie Villanueva. Time: 17:14 Vital Signs Temperature 97.8 F 07/27/17 12:43 Pulse Rate 53 07/27/17 12:43 Respiratory Rate 13 07/27/17 12:43 Blood Pressure 106/78 07/27/17 12:43 O2 Sat by Pulse Oximetry 98 07/27/17 12:43 Temperature 97.8 F 07/27/17 12:43 Pulse Rate 46 07/27/17 14:58 Respiratory Rate 12 07/27/17 14:58 Blood Pressure 106/78 07/27/17 14:58 O2 Sat by Pulse Oximetry 97 07/27/17 14:58 Oxygen Delivery Oxygen Delivery Room Air Medical Decision Making - Lab Data Lab results reviewed: Yes I reviewed the patient's lab results. Result diagrams: 07/27/17 13:26 07/27/17 13:26 Lab Results 07/27/17 07/27/17 07/27/17 Range/Units 13:26 13:26 13:26 WBC 6.7 (4.3-11.1) K/mcL RBC 4.44 (4.19-5.50) M/mcL Hgb 12.2 L (12.9-16.9) g/dL Hct 36.6 L (37.5-50.1) % MCV 82.4 L (83.0-100.0) fL MCH 27.5 L (28.0-33.3) pg MCHC 33.3 (31.6-35.5) g/dL RDW 14.0 (11.5-14.5) % Plt Count 136 L (140-400) K/mcL MPV 11.2 (9.4-12.4) fL Immature Gran % 0.6 (0-4) % Seg Neutrophils % 84.2 % Lymphocytes % 8.5 % Monocytes % 5.7 % Eosinophils % 0.6 % Basophils % 0.4 % Neutrophils # 5.6 (1.6-8.9) K/mcL Lymphocytes # 0.6 (0.6-4.6) K/mcL Monocytes # 0.4 (0.0-1.3) K/mcL Eosinophils # 0.0 (0.0-0.6) K/mcL Basophils # 0.0 (0.0-0.2) K/mcL Sodium 133 L (136-145) mEq/L Potassium 3.9 (3.5-4.5) mEq/L Chloride 101 (98-109) mEq/L Carbon Dioxide 24 (19-29) mEq/L BUN 16 (8-26) mg/dL Creatinine 0.64 L (0.72-1.25) mg/dL Est GFR ( Amer) > 60 (> 60) Est GFR (Non-Af Amer) > 60 (> 60) BUN/Creatinine Ratio 25 (6-26) Glucose 90 (70-99) mg/dL Calculated Osmolality 277 L (280-300) Lactic Acid 0.7 (0.5-2.2) mmol/L Calcium 9.1 (8.6-10.8) mg/dL - Radiology Data Radiology results reviewed: Yes I reviewed the patient's radiology results. Head CT 07/27/17 12:44 IMPRESSION: 1. No acute intracranial abnormality. 2. Chronic paranasal sinusitis. 3. Stable left mastoid disease. D/ /27/2017 14:41:28 Joe Caba MD / [facility] Interpreting Provider: Joe Caba MD Chest X-Ray 07/27/17 12:47 IMPRESSION: No radiographic evidence of acute cardiopulmonary process. D/ / Barrington Forte MD / Barrington Forte MD Interpreting Provider: Barrington Forte MD Abdomen/Pelvis CT 07/27/17 15:39 IMPRESSION: 1. Limited study due to lack of IV contrast. 2. Trace amount of fluid surrounding the right inferior liver tip with mild diffuse mesenteric stranding. Overall findings are nonspecific. 3. Otherwise no acute findings within the abdomen or pelvis. 4. Markedly distended bladder likely represent sequela of bladder outlet obstruction from prostatomegaly. 5. Appropriate positioning of gastrostomy tube. D/ / 07/27/2017 16:51:45 Ham Ding MD / [facility] Interpreting Provider: Ham Ding MD
[2017-07-27 13:48] LABS: Basophils % 0.4 %; Eosinophils % 0.6 %; Hematocrit 36.6 % (37.5-50.1); Hemoglobin 12.2 g/dL (12.9-16.9); Immature Granulocytes % 0.6 % (0-4); Lymphocytes # 0.6 K/mcL (0.6-4.6); Lymphocytes % 8.5 %; Mean Corpuscular HGB Conc 33.3 g/dL (31.6-35.5); Mean Corpuscular Hemoglobin 27.5 pg (28.0-33.3); Mean Corpuscular Volume 82.4 fL (83.0-100.0); Mean Platelet Volume 11.2 fL (9.4-12.4); Monocytes # 0.4 K/mcL (0.0-1.3); Monocytes % 5.7 %; Neutrophils # 5.6 K/mcL (1.6-8.9); Platelet Count 136 K/mcL (140-400); Red Blood Count 4.44 M/mcL (4.19-5.50); Segmented Neutrophils % 84.2 %
[2017-07-27 13:58] LABS: BUN/Creatinine Ratio 25 (6-26); Blood Urea Nitrogen 16 mg/dL (8-26); Calcium 9.1 mg/dL (8.6-10.8); Carbon Dioxide 24 mEq/L (19-29); Chloride 101 mEq/L (98-109); Glucose 90 mg/dL (70-99); Osmolality,Calculated 277 (280-300); Potassium 3.9 mEq/L (3.5-4.5); Sodium 133 mEq/L (136-145); eGFR For African Americans > 60 (> 60); eGFR For Non-African Americans > 60 (> 60)
[2017-07-27 17:28] LABS: Bilirubin,Urine Negative (Negative); Blood,Urine Negative (Negative); Clarity,Urine Clear (Clear); Color,Urine Yellow (Yellow); Glucose,Urine (UA) Normal (Normal); Ketones,Urine Trace mg/dL (Negative); Leukocyte Esterase,Urine Negative (Negative); Nitrite,Urine Negative (Negative); PH,Urine 6.5 pH Units (5.0-8.0); Protein,Urine Negative (Neg-Trace); Specific Gravity,Urine 1.024 (1.010-1.025); Urobilinogen,Urine Normal (Normal)
[2017-07-27] MEDS ORDERED: Ondansetron 4 MG/2 ML VIAL ONE (20:06)
[2017-07-27] MEDS ORDERED: Ondansetron 4 MG/2 ML VIAL IVP ONE (20:06)
[2017-07-27] MEDS ORDERED: [UNRECOGNIZED DRUG - OTHER] PO SCH (20:15)
[2017-07-27] MEDS ORDERED: LACTOSE REDUCED FOOD PO SCH (20:15)
[2017-07-27] MEDS ORDERED: FIBER PO SCH (20:15)
[2017-07-27] MEDS ORDERED: Methadone Oral Concentrate 10 MG/ML GTUBE SCH (21:00)
[2017-07-27] MEDS ORDERED: *HR* Promethazine 25 MG/ML VIAL IVP PRN (21:25)
[2017-07-27] MEDS ORDERED: Naloxone 0.4 MG/ML INJ IVP PRN (21:25)
--- NOTE | 2017-07-27 22:06 | Internal Med History&Physical ---
<EvelineChepe almodovar - Last Filed: 07/27/17 22:46> Date of Encounter: 07/27/17 Time of Encounter: 20:00 Assessment and Plan (1) Tracheitis Current visit: Yes Status: Acute Tracheitis that patient failed OP therapy for. Pt. received cefepime which caused N/V. Culture on 07/19/17 showed growth for Pseudomonas and Escherichia coli. IVPB meropenem 1,000 mg Q8 for infection coverage with communication order to monitor pt. for adverse rxn. Tracheostomy care ordered Q6HR. Will continue patient's pain medication. Patient does not currently meet sepsis criteria. Monitor patient closely for signs of increased infection, cardiac, and/or respiratory distress. Suctioning ordered. Patient high risk for further morbidity/infection. Inpatient. (2) Altered mental status Current visit: Yes Status: Acute AMS most likely due to current infection versus possible brain mets. IVPB meropenem 1,000 mg Q8 for infection coverage. Will monitor patient and neurological status. Falls/safety precautions. Qualifiers: Altered mental status type: disorientation Qualified Code(s): R41.0 - Disorientation, unspecified (3) Nausea & vomiting Current visit: Yes Status: Acute Acute N/V x 3 days. IVP Zofran Q6 PRN. IVP Protonix 40 mg BID. Qualifiers: Vomiting type: cyclical vomiting Vomiting Intractability: non-intractable Qualified Code(s): G43.A0 - Cyclical vomiting, not intractable (4) Headache Current visit: Yes Status: Chronic Patient reports acute headache for the past week. Pt. has cancer of the neck and throat and was recently found to have 2 spots on the chest/lung. CT of the head shows no acute intracranial abnormality, chronic paranasal sinusitis, and stable left mastoid disease. MRI of the head/brain ordered to r/o mets. Will continue patient's pain medication for pain management. Qualifiers: Headache type: unspecified Headache chronicity pattern: chronic headache Intractability: not intractable Qualified Code(s): R51 - Headache (5) Tracheostomy in place Current visit: Yes Status: Chronic Hx of tracheostomy. Culture performed on 07/19/17 showed growth of Pseudomonas and Escherichia coli. Tracheostomy care Q6 HR. IVPB meropenem 1,000 mg Q8 for infection coverage. Suctioning ordered. (6) Failure to thrive Current visit: Yes Status: Chronic Patient is 49.80 kg and has a BMI of 17.2 related to current cancer dx. Patient reports N/V for three days r/t abx he was taking. Tracheostomy and gastrostomy tube in place. Nutrition consult ordered for supplementation. Qualifiers: Failure to thrive age range: in adult Qualified Code(s): R62.7 - Adult failure to thrive (7) DVT prophylaxis Current visit: Yes Status: Acute Heparin 5,000 units SQ Q8 for DVT prophylaxis. Internal Medicine - H&P: HPI Chief complaint: Failed outpatient therapy for infection Admitted From: Emergency Dept Plans for Post Hospital Care: Home History of present illness: Mr. Gunter is a 61 year old male with medical history of asthma, cancer of the neck, COPD, and hypertension presents from the ED with chief complaint of lethargy and weakness due to failed outpatient therapy for acute tracheitis. Patient with trach states he was placed on cefepime three days ago which made the patient nauseous and vomit. Patient also complains of severe headache. Patient's family state that he has cancer of the neck, throat, and that he was found to have two spots in his chest/lung. Patient's family state that the patient has declined significantly with more confusion/AMS. Patient reports nausea, vomiting, SOB, cough, and abdominal pain but denies chest pain, palpitations, changes in vision, fever, chills, urinary urgency or frequency, weakness, numbness, tingling, unusual bleeding, pre-syncope, or syncope. Past Med Surg Social Fam HX - Past Medical History Source: patient, old records reviewed, obtained from family Medical history: asthma, cancer, COPD, hypertension Psychiatric history: no psych history - Past Surgical History Surgical History: no surgical history - Social History Smoking Status: Former smoker Packs per day: 1 PPD - Reports quitting 3 months ago Smokeless Tobacco Status: No Alcohol use: none Drug use: none Current living situation: Home, With Family Activity Level: Independent ambulation Recent Out of Country Travel Within the Last 8 Weeks: No Exposure or Possible Exposure to Illness During Travel: No - Family History Mother Race: Family Member Ethnicity: Non- Living Status: Cause of : Cancer (type unknown) Hx Family Cancer: Yes Father Race: Family Member Ethnicity: Non- Living Status: Cause of : Kidney failure Hx Family Genitourinary Disorders: Yes (CKD) Brother Race: Family Member Ethnicity: Non- Living Status: Hx Family Endocrine Disorder: Yes (DM) Sister Race: Family Member Ethnicity: Non- Living Status: Cause of : Brain aneurysm Hx Family Cardiac Disorders: Yes (Aneurysm) Internal Medicine - H&P: Meds Lactose-Reduced Food/Fiber [Jevity 1.5 Leeroy Liquid] 1 can PO AD 07/19/17 [History ] Levothyroxine [Synthroid] 125 mcg GTUBE QAM 07/19/17 [History] Prochlorperazine Maleate [Compazine] 10 mg GTUBE Q8HR PRN 07/19/17 [History] Methadone Oral Concentrate [Methadone] 5 mg GTUBE BID #10 mls 07/23/17 [Rx] OxyCODONE Oral Soln [OxyCODONE ORAL SOLN] 10 mg GTUBE Q4H 7 Days #500 mls [Rx] Sennosides [Senna] 17.6 mg PO BID #100 mls 07/23/17 [Rx] Cefepime HCl [Maxipime] 2,000 mg IVPB Q12HR #22 vial 07/24/17 [Rx] Dexamethasone [Decadron] 4 mg PO BID #21 tablet 07/24/17 [Rx] Gabapentin 300 mg PO BID #120 solution 07/24/17 [Rx] Famotidine [Pepcid] 40 mg GTUBE DAILY 07/27/17 [History] Ibuprofen [Motrin] 600 mg GTUBE Q6HR PRN 07/27/17 [History] Ondansetron HCl [Zofran] 4 mg GTUBE Q8H 07/27/17 [History] Pantoprazole Sodium [Protonix] 40 mg GTUBE DAILY 07/27/17 [History] 3 Allergy/AdvReac Type Severity Reaction Status Date / Time cefepime AdvReac Vomiting Verified 07/27/17 20:18 All Systems PM: A 10-system review of systems was performed and is negative for pertinent findings except as documented above in the HPI. - Constitutional Constitutional: no chills, no fever(s), no night sweats - EENT Eyes: no change in vision, no discharge, no pain, no photophobia Ears: no ear discharge, no ear pain, no tinnitus Nose, mouth and throat: no dysphagia, no nasal discharge, no neck pain, no sore throat - Breasts Breasts: as per HPI - Cardiovascular Cardiovascular ROS IM: no chest pain, no diaphoresis, no dyspnea, no lightheadedness, no palpitations, no syncope - Respiratory Respiratory: as per HPI, cough, dyspnea, dyspnea on exertion - Gastrointestinal Gastrointestinal: as per HPI, abdominal pain, nausea, vomiting - Genitourinary Genitourinary ROS male: as per HPI - Musculoskeletal Musculoskeletal ROS IM: no numbness, no tingling - Integumentary Integumentary IM: no rash, no unusual bruising - Neurological Neurological ROS: as per HPI, confusion, no convulsions, no focal weakness, no numbness, no tingling, no tremor(s) - Psychiatric Psychiatric: as per HPI, anxiety, depression - Endocrine Endocrine IM: as per HPI - Hematologic/Lymphatic Hematologic/Lymphatic: no easy bruising - Allergic/Immunologic Allergic/Immunologic: as per HPI - Constitutional Vitals: Temp Pulse Resp BP Pulse Ox 97.6 F 53 14 99/62 96 07/27/17 18:28 07/27/17 18:28 07/27/17 18:28 07/27/17 18:28 07/27/17 18:28 General appearance: Present: cooperative, A&O X 2, severe distress (Nausea), underweight, answers questions appropriately - Head Head exam: Present: atraumatic, normocephalic - Eye Eye exam: Present: PERRL, conjuntiva pink, sclera anicteric Pupils: Present: PERRL - ENT ENT exam: Present: normal exam - Neck Neck exam general surgery: Present: lymphadenopathy, tenderness - Respiratory Respiratory exam: Present: decreased breath sounds, wheezes - Cardiovascular Cardiovascular exam: Present: bradycardia, RRR, +S1, +S2. Absent: diastolic murmur, gallop, rubs, systolic murmur - GI/Abdominal GI/Abdominal exam: Present: diminished bowel sounds - Rectal Rectal exam: Present: deferred - Additional comments: exam deferred. - Extremities Exam Extremities exam: Present: warm, radial pulses palpable and symmetrical. Absent : calf tenderness, cyanotic, pedal edema - Back Exam Back exam: Present: normal inspection - Neurological Exam Neurological exam: Present: alert, no focal deficits, speech deficit (Due to trach) - Psychiatric Psychiatric exam: Present: anxious - Skin Skin exam: Present: dry, intact Internal Med - H&P Results - Labs CBC & Chem 7: 07/27/17 13:26 07/27/17 13:26 - Diagnostic Studies CT scan - head Additional comments: Impressions Head CT 07/27/17 12:44 IMPRESSION: 1. No acute intracranial abnormality. 2. Chronic paranasal sinusitis. 3. Stable left mastoid disease. D/ /27/2017 14:41:28 Joe Caba MD / [facility] Interpreting Provider: Joe Caba MD Chest x-ray Additional comments: Impressions Chest X-Ray 07/27/17 12:47 IMPRESSION: No radiographic evidence of acute cardiopulmonary process. D/ / Barrington Forte MD / Barrington Forte MD Interpreting Provider: Barrington Forte MD CT scan - abdomen Additional comments: Impressions Abdomen/Pelvis CT 07/27/17 15:39 IMPRESSION: 1. Limited study due to lack of IV contrast. 2. Trace amount of fluid surrounding the right inferior liver tip with mild diffuse mesenteric stranding. Overall findings are nonspecific. 3. Otherwise no acute findings within the abdomen or pelvis. 4. Markedly distended bladder likely represent sequela of bladder outlet obstruction from prostatomegaly. 5. Appropriate positioning of gastrostomy tube. D/ / 07/27/2017 16:51:45 Ham Ding MD / [facility] Interpreting Provider: Ham Ding MD <Chiquita Mallory - Last Filed: 07/28/17 04:13> Date of Encounter: 07/28/17 Internal Medicine - H&P: HPI History of present illness: Mr. Gunter is a 61 year old male All Systems PM: A 10-system review of systems was performed and is negative for pertinent findings except as documented above in the HPI. - Constitutional Vitals: Temp Pulse Resp BP Pulse Ox 96.8 F L 53 18 108/73 97 07/28/17 00:06 07/28/17 00:06 07/28/17 03:59 07/28/17 00:06 07/28/17 03:59 Internal Med - H&P Results - Labs CBC & Chem 7: 07/27/17 13:26 07/27/17 13:26 - Attending Attestation I saw and examined the patient independently, I have discussed with CLIENT COORDINATOR Mr Chew regarding the management plan. Agree with the documentation. Patient did present with lethargic and weakness. Has tracheitis, culture shows Pseudomonas and Escherichia coli. Will place patient on IV fluid, IV meropenem per sensitivity.
[2017-07-27] MEDS: *HR* Methadone 5 MG TABLET PO SCH (22:39)
[2017-07-27] MEDS: *HR* OxyCODONE Oral Soln 5 MG/5 ML UD.LIQ GTUBE SCH (22:39)
[2017-07-27] MEDS: Gabapentin 300 MG CAPSULE PO SCH (22:39)
[2017-07-27] MEDS: 0.9 % Sodium Chloride 1,000 ML IVC SCH (22:40)
[2017-07-28] MEDS ORDERED: Meropenem 1,000 MG in 0.9 % Sodium Chloride Mini Bag 100 ML IVPB SCH
[2017-07-28] MEDS: Dexamethasone 4 MG/ML VIAL IVP SCH ×3 (00:38→20:50)
[2017-07-28] MEDS: Meropenem 1,000 MG in 0.9 % Sodium Chloride Mini Bag 100 ML IVPB SCH ×4 (00:39→20:51)
[2017-07-28] MEDS: *HR* OxyCODONE Oral Soln 5 MG/5 ML UD.LIQ GTUBE SCH ×6 (03:26→20:49)
[2017-07-28] MEDS: Ipratropium/Albuterol Neb 3 ML IH SCH ×4 (03:58→21:27)
[2017-07-28 05:19] LABS: Basophils % 0.2 %; Eosinophils % 0.2 %; Hematocrit 36.7 % (37.5-50.1); Hemoglobin 12.5 g/dL (12.9-16.9); Immature Granulocytes % 0.5 % (0-4); Immature Platelets 7.6 % (1.1-6.1); Lymphocytes # 0.5 K/mcL (0.6-4.6); Lymphocytes % 7.4 %; Mean Corpuscular HGB Conc 34.1 g/dL (31.6-35.5); Mean Corpuscular Hemoglobin 27.7 pg (28.0-33.3); Mean Corpuscular Volume 81.4 fL (83.0-100.0); Mean Platelet Volume 10.9 fL (9.4-12.4); Monocytes # 0.1 K/mcL (0.0-1.3); Monocytes % 1.9 %; Neutrophils # 5.7 K/mcL (1.6-8.9); Platelet Count 158 K/mcL (140-400); Red Blood Count 4.51 M/mcL (4.19-5.50); Red Cell Distribution Width 14.1 % (11.5-14.5); Segmented Neutrophils % 89.8 %
[2017-07-28 05:37] LABS: BUN/Creatinine Ratio 25 (6-26); Blood Urea Nitrogen 16 mg/dL (8-26); Carbon Dioxide 22 mEq/L (19-29); Chloride 102 mEq/L (98-109); Glucose 91 mg/dL (70-99); Potassium 3.9 mEq/L (3.5-4.5); Sodium 133 mEq/L (136-145); eGFR For African Americans > 60 (> 60); eGFR For Non-African Americans > 60 (> 60)
[2017-07-28 05:38] LABS: Alanine Aminotransferase 29 Units/L (0-55); Albumin 3.3 g/dL (3.5-5.0); Alkaline Phosphatase 78 Units/L (38-126); Aspartate Amino Transferase 21 Units/L (5-34); Bilirubin,Total 0.6 mg/dL (0.2-1.2); Calcium 9.2 mg/dL (8.6-10.8); Chol/HDL Ratio 2.8 (0-4.9); Cholesterol 148 mg/dL (< 200); Globulin 3.3 g/dL (2.4-3.5); HDL Cholesterol 53 mg/dL (40-59); LDL Cholesterol,Calculated 79 mg/dL (0-99); Magnesium 1.9 mg/dL (1.6-2.6); Osmolality,Calculated 277 (280-300); Phosphorous 2.5 mg/dL (2.3-4.7); Total Protein 6.6 g/dL (6.0-8.3); Triglycerides 81 mg/dL (< 150)
[2017-07-28] MEDS: Pantoprazole 40 MG VIAL IVP SCH ×2 (06:26→17:55)
[2017-07-28] MEDS: *HR* Heparin 5,000 UNIT/ML VIAL SQ SCH ×3 (06:26→20:50)
[2017-07-28] MEDS: Gabapentin 300 MG CAPSULE PO SCH ×2 (08:48→20:50)
[2017-07-28] MEDS: *HR* Methadone 5 MG TABLET PO SCH ×2 (08:48→20:50)
--- NOTE | 2017-07-28 09:24 | Internal Med Progress Note ---
Date of Encounter: 07/28/17 Time of Encounter: 09:22 - Assessment and plan (1) Bacterial tracheitis Current Visit: Yes Status: Acute Assessment and plan: Has been diagnosed during previous admission. Tracheal cultures grew Pseudomonas and E.coli and patient was discharged on IV Cefepime, which apparently gave him nausea and vomiting, although he seemed to have gotten it during his previous admission. Continue IV Meropenem for now. Supportive care with PRN antiemetics. (2) Nausea & vomiting Current Visit: Yes Status: Acute Assessment and plan: improving. Continue PRN IV Zofran. CT abdomen/pelvis showed no acute abnormality. Qualifiers: Vomiting type: cyclical vomiting Vomiting Intractability: non-intractable Qualified Code(s): G43.A0 - Cyclical vomiting, not intractable (3) Headache Current Visit: Yes Status: Acute Assessment and plan: uncertain etiology; check MRI brain to r/o brain mets. 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 Follows with Oncology as outpatient; reviewed notes from previous admissions- unfortunately, at this time, only palliative immunotherapy is offered. Pain control. Continue Decadron. (5) Failure to thrive Current Visit: Yes Status: Chronic Assessment and plan: secondary to oral cavity cancer and poor oral intake and trismus. Continue PEG feeds, oral liquid diet as tolerated. Nutrition consult. Qualifiers: Failure to thrive age range: in adult Qualified Code(s): R62.7 - Adult failure to thrive (6) Status post insertion of percutaneous endoscopic gastrostomy (PEG) tube Current Visit: Yes Status: Chronic (7) Tracheostomy in place Current Visit: Yes Status: Chronic (8) COPD (chronic obstructive pulmonary disease) Current Visit: Yes Status: Chronic Qualifiers: COPD type: unspecified COPD Qualified Code(s): J44.9 - Chronic obstructive pulmonary disease, unspecified (9) Cancer associated pain Current Visit: Yes Status: Chronic Assessment and plan: continue pain control with PRN Oxycodone and Methadone per home regimen. (10) Constipation by delayed colonic transit Current Visit: Yes Status: Chronic (11) Goals of care, counseling/discussion Current Visit: Yes Status: Acute Assessment and plan: Discussed goals of care with patient and his , although he does not seem to be much involved in the discussion. They understand the terminal nature of his cancer and the associated complications including facial pain, trismus, N/V, multiple frequent and prolonged hospitalizations, however unwilling to consider palliative care/Hospice at this time. Code status is DNR-CCA/DNI. (12) Hypothyroidism Current Visit: Yes Status: Chronic Assessment and plan: continue Levothyroxine. Qualifiers: Hypothyroidism type: unspecified Qualified Code(s): E03.9 - Hypothyroidism , unspecified - Subjective Interval history: Unable to answer questions due to tracheostomy and oral pain from oral cancer; history obtained from at bedside; patient has been having nausea, vomiting , abdominal pain and left-sided headache since being discharged a few days ago. No fever/chills. - Constitutional Vitals: Temp Pulse Resp BP Pulse Ox 97.5 F L 65 14 87/54 96 07/28/17 07:24 07/28/17 07:24 07/28/17 07:24 07/28/17 07:24 07/28/17 08:31 General appearance: Present: cooperative, A&O X 2, underweight - Head Additional comments: Left buccal swelling, radiation changes; trismus, unable to open mouth wide - Respiratory Respiratory exam: Present: CTAB. Absent: accessory muscle use, rales, rhonchi, wheezes - Cardiovascular Cardiovascular exam: Present: RRR, +S1, +S2. Absent: diastolic murmur, gallop, rubs, systolic murmur - GI/Abdominal GI/Abdominal exam: Present: normal bowel sounds, soft (tenderness in epigastrium , lower abdomen to deep palpation), no peritoneal signs. Absent: distended, tenderness - Extremities Exam Extremities exam: Present: full ROM, warm, radial pulses palpable and symmetrical. Absent: calf tenderness, cyanotic, pedal edema Internal Medicine: Result - Labs CBC & Chem 7: 07/28/17 05:01 07/28/17 05:01 Labs: Short CBC 07/28/17 Range/Units 05:01 WBC 6.3 (4.3-11.1) K/mcL Hgb 12.5 L (12.9-16.9) g/dL Hct 36.7 L (37.5-50.1) % Plt Count 158 (140-400) K/mcL Neutrophils # 5.7 (1.6-8.9) K/mcL BMP 07/28/17 05:01 Sodium 133 L Potassium 3.9 Chloride 102 Carbon Dioxide 22 BUN 16 Creatinine 0.63 L Glucose 91 Calcium 9.2 Liver Function 07/28/17 Range/Units 05:01 Total Bilirubin 0.6 (0.2-1.2) mg/dL AST 21 (5-34) Units/L ALT 29 (0-55) Units/L Alkaline Phosphatase 78 (38-126) Units/L Albumin 3.3 L (3.5-5.0) g/dL Consult Discharge Plan - Plan Referrals: Jose Guadalupe Sierra MD [Primary Care Provider] -
[2017-07-28] MEDS: 0.9 % Sodium Chloride 1,000 ML IVC SCH (17:52)
[2017-07-29] MEDS: *HR* OxyCODONE Oral Soln 5 MG/5 ML UD.LIQ GTUBE SCH ×7 (00:19→21:40)
[2017-07-29 03:10] LABS: Basophils % 0.2 %; Hematocrit 33.5 % (37.5-50.1); Hemoglobin 11.4 g/dL (12.9-16.9); Immature Granulocytes % 0.6 % (0-4); Lymphocytes # 0.5 K/mcL (0.6-4.6); Mean Corpuscular Hemoglobin 27.6 pg (28.0-33.3); Mean Corpuscular Volume 81.1 fL (83.0-100.0); Mean Platelet Volume 10.4 fL (9.4-12.4); Monocytes # 0.2 K/mcL (0.0-1.3); Monocytes % 3.8 %; Neutrophils # 4.5 K/mcL (1.6-8.9); Platelet Count 141 K/mcL (140-400); Red Blood Count 4.13 M/mcL (4.19-5.50); Red Cell Distribution Width 13.9 % (11.5-14.5); Segmented Neutrophils % 86.4 %
[2017-07-29 03:27] LABS: Alanine Aminotransferase 23 Units/L (0-55); Alkaline Phosphatase 66 Units/L (38-126); Aspartate Amino Transferase 18 Units/L (5-34); BUN/Creatinine Ratio 27 (6-26); Bilirubin,Total 0.3 mg/dL (0.2-1.2); Blood Urea Nitrogen 18 mg/dL (8-26); Calcium 8.7 mg/dL (8.6-10.8); Carbon Dioxide 23 mEq/L (19-29); Chloride 103 mEq/L (98-109); Glucose 104 mg/dL (70-99); Osmolality,Calculated 278 (280-300); Sodium 133 mEq/L (136-145); eGFR For African Americans > 60 (> 60); eGFR For Non-African Americans > 60 (> 60)
[2017-07-29] MEDS: Ipratropium/Albuterol Neb 3 ML IH SCH ×4 (04:59→23:41)
[2017-07-29] MEDS: Meropenem 1,000 MG in 0.9 % Sodium Chloride Mini Bag 100 ML IVPB SCH ×3 (05:35→21:52)
[2017-07-29] MEDS: Pantoprazole 40 MG VIAL IVP SCH ×2 (05:35→18:15)
[2017-07-29] MEDS: *HR* Heparin 5,000 UNIT/ML VIAL SQ SCH ×3 (05:35→21:51)
[2017-07-29] MEDS: Gabapentin 300 MG CAPSULE PO SCH ×2 (08:45→21:42)
[2017-07-29] MEDS: Dexamethasone 4 MG/ML VIAL IVP SCH ×2 (08:45→21:41)
[2017-07-29] MEDS: *HR* Methadone 5 MG TABLET PO SCH ×2 (08:45→21:41)
[2017-07-29] MEDS: 0.9 % Sodium Chloride 1,000 ML IVC SCH ×2 (08:48→19:24)
--- NOTE | 2017-07-29 10:14 | Internal Med Progress Note ---
Date of Encounter: 07/29/17 Time of Encounter: 10:12 - Assessment and plan (1) Mastoiditis Current Visit: Yes Status: Chronic Assessment and plan: Patient continues to have left-sided and occipital headache, intermittent. MRI brain showed no evidence of metastatic disease, does show left mastoid effusion. Nonspecific finding. ENT consult to assess for acute infection or surgical intervention. Qualifiers: Laterality: left Qualified Code(s): H70.92 - Unspecified mastoiditis, left ear (2) Bacterial tracheitis Current Visit: Yes Status: Acute Assessment and plan: Has been diagnosed during previous admission. Tracheal cultures grew Pseudomonas and E.coli and patient was discharged on IV Cefepime, which he could not tolerate due to nausea and vomiting. Continue IV Meropenem for now- day 2. Supportive care with PRN antiemetics. Plan for ENT to replace trach tube today. (3) Nausea & vomiting Current Visit: Yes Status: Resolved Assessment and plan: improved. Continue PRN antiemetics. Qualifiers: Vomiting type: cyclical vomiting Vomiting Intractability: non-intractable Qualified Code(s): G43.A0 - Cyclical vomiting, not intractable (4) Headache Current Visit: Yes Status: Chronic Assessment and plan: uncertain etiology; improving. MRI brain showed no acute abnormality or metastatic disease. 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 Follows with Oncology as outpatient; reviewed notes from previous admissions- unfortunately, at this time, only palliative immunotherapy is offered. Pain control. Continue Decadron. (6) Failure to thrive Current Visit: Yes Status: Chronic Assessment and plan: secondary to oral cavity cancer and poor oral intake and trismus. Continue PEG feeds, oral liquid diet as tolerated. Nutrition on board. Tube feeds have been held last night as patient feels his headache came back with tube feeds. 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 (11) Constipation by delayed colonic transit Current Visit: Yes Status: Chronic Assessment and plan: due to narcotics. Continue stool softeners and laxatives. (12) Goals of care, counseling/discussion Current Visit: Yes Status: Acute (13) Hypothyroidism Current Visit: Yes Status: Chronic Assessment and plan: continue Levothyroxine. Qualifiers: Hypothyroidism type: unspecified Qualified Code(s): E03.9 - Hypothyroidism , unspecified - Subjective Interval history: Appears more alert and oriented today. Improved nausea and vomiting. Reports his headache improved yesterday but returned when tube feeds were started last night; currently tube feeds are on hold. Reports left-sided headache, beginning from around his ear to back; also has hearing loss in left ear. - Constitutional Vitals: Temp Pulse Resp BP Pulse Ox 98.4 F 59 16 94/63 96 07/29/17 07:57 07/29/17 07:57 07/29/17 07:57 07/29/17 07:57 07/29/17 07:57 General appearance: Present: cooperative, A&O X 2, underweight, answers questions appropriately - ENT Additional comments: left mastoid tenderness, auricle erythema - Respiratory Respiratory exam: Present: CTAB. Absent: accessory muscle use, rales, rhonchi, wheezes - Cardiovascular Cardiovascular exam: Present: RRR, +S1, +S2. Absent: diastolic murmur, gallop, rubs, systolic murmur - GI/Abdominal GI/Abdominal exam: Present: normal bowel sounds, soft, no peritoneal signs. Absent: distended, tenderness - Extremities Exam Extremities exam: Present: full ROM, warm, radial pulses palpable and symmetrical. Absent: calf tenderness, cyanotic, pedal edema - Neurological Exam Neurological exam: Present: CN II-XII intact, oriented X3, no focal deficits. Absent: pronater drift, facial droop, speech deficit Internal Medicine: Result - Labs CBC & Chem 7: 07/29/17 02:52 07/29/17 02:52 Labs: Short CBC 07/29/17 Range/Units 02:52 WBC 5.2 (4.3-11.1) K/mcL Hgb 11.4 L (12.9-16.9) g/dL Hct 33.5 L (37.5-50.1) % Plt Count 141 (140-400) K/mcL Neutrophils # 4.5 (1.6-8.9) K/mcL BMP 07/29/17 02:52 Sodium 133 L Potassium 4.0 Chloride 103 Carbon Dioxide 23 BUN 18 Creatinine 0.66 L Glucose 104 H Calcium 8.7 Liver Function 07/29/17 Range/Units 02:52 Total Bilirubin 0.3 (0.2-1.2) mg/dL AST 18 (5-34) Units/L ALT 23 (0-55) Units/L Alkaline Phosphatase 66 (38-126) Units/L Albumin 3.0 L (3.5-5.0) g/dL - Impressions Impressions Brain MRI 07/28/17 22:08 IMPRESSION: 1. No acute intracranial abnormality. No acute infarct. 2. No evidence of intracranial metastatic disease. 3. Minimal global requiring loss with minimal chronic microvascular ischemic change. 4. Scattered sinusitis. Left mastoid effusion. D/ / Micha Rabago MD / Micha Rabago MD Interpreting Provider: Micha Rabago MD Consult Discharge Plan - Plan Referrals: Jose Guadalupe Sierra MD [Primary Care Provider] -
--- NOTE | 2017-07-29 12:11 | ENT - Consult Note ---
Date of Encounter: 07/29/17 Time of Encounter: 11:30 Assessment and Plan (1) Chronic mastoiditis of left side Current Visit: Yes Status: Chronic Recommendation is to refer this patient as an outpatient to ENT for evaluation of questionable ear fluid and some chronic cerumen impaction in the left ear agent should be referred to the ENT clinic for probable ear cleaning audiological assessment and possible consideration of a left ear tube there is no significant issue from the chronic ear fluid and no need for any surgical intervention for the ear fluid itself which is clearly a chronic issue possibly radiation related in addition to underlying chronic mastoid issues this patient has 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 patient should probably be referred back to oncology for chemotherapy I would make sure the trach was changed on a regular basis to avoid infection he was also encouraged to use his speech prosthetic device at home capping the trach (2) Headache Current Visit: Yes Status: Chronic Qualifiers: Headache type: unspecified Headache chronicity pattern: chronic headache Intractability: intractable Qualified Code(s): R51 - Headache (3) Unspecified hearing loss, bilateral Current Visit: Yes Status: Acute Qualifiers: Hearing loss type: unspecified Qualified Code(s): H91.93 - Unspecified hearing loss, bilateral (4) Impacted cerumen of left ear Current Visit: Yes Status: Acute History of Present Illness Consult date: 07/29/17 Reason for ENT Consult: other (Tracheal infection chronic mastoiditis severe trismus history of head and neck cancer) History of present illness: History 61-year-old white male who had an MRI yesterday revealing fluid he has an unexplained headache which may be related to his underlying tumor but they were concerned about the possibility of mastoiditis. evaluation of his previous scans revealed fluid in the left mastoid 6 months ago and there is actually improvement in the most recent CT with some air in some of the mastoid cells and a little fluid in the middle ear on CT but no changes on the patient's mastoid i.e. no erosion of septa the patient's pain is most likely attributable to the previous tumor extending into skull base and pterygoid region causing some muscular thickening patient also has some problems with some infection around the trach and this has been changed in some time now and he has severe trismus probably related to the tumor is had this for many months he was in the process of undergoing another round of chemotherapy but because he is getting recurrently ill had to stop this Past Med Surg Social Fam HX - Past Medical History Medical history: asthma, cancer, COPD, hypertension Psychiatric history: no psych history - Past Surgical History Surgical History: no surgical history - Social History Smoking Status: Former smoker Packs per day: 1 PPD - Reports quitting 3 months ago Smokeless Tobacco Status: No Alcohol use: none Drug use: none - Family History Mother Race: Family Member Ethnicity: Non- Living Status: Cause of : Cancer (type unknown) Hx Family Cancer: Yes Father Race: Family Member Ethnicity: Non- Living Status: Cause of : Kidney failure Hx Family Genitourinary Disorders: Yes (CKD) Brother Race: Family Member Ethnicity: Non- Living Status: Hx Family Endocrine Disorder: Yes (DM) Sister Race: Family Member Ethnicity: Non- Living Status: Cause of : Brain aneurysm Hx Family Cardiac Disorders: Yes (Aneurysm) Medications and Allergies Lactose-Reduced Food/Fiber [Jevity 1.5 Leeroy Liquid] 1 can PO AD 07/19/17 [History ] Levothyroxine [Synthroid] 125 mcg GTUBE QAM 07/19/17 [History] Prochlorperazine Maleate [Compazine] 10 mg GTUBE Q8HR PRN 07/19/17 [History] Methadone Oral Concentrate [Methadone] 5 mg GTUBE BID #10 mls 07/23/17 [Rx] OxyCODONE Oral Soln [OxyCODONE ORAL SOLN] 10 mg GTUBE Q4H 7 Days #500 mls [Rx] Sennosides [Senna] 17.6 mg PO BID #100 mls 07/23/17 [Rx] Cefepime HCl [Maxipime] 2,000 mg IVPB Q12HR #22 vial 07/24/17 [Rx] Dexamethasone [Decadron] 4 mg PO BID #21 tablet 07/24/17 [Rx] Gabapentin 300 mg PO BID #120 solution 07/24/17 [Rx] Famotidine [Pepcid] 40 mg GTUBE DAILY 07/27/17 [History] Ibuprofen [Motrin] 600 mg GTUBE Q6HR PRN 07/27/17 [History] Ondansetron HCl [Zofran] 4 mg GTUBE Q8H 07/27/17 [History] Pantoprazole Sodium [Protonix] 40 mg GTUBE DAILY 07/27/17 [History] 3 Allergy/AdvReac Type Severity Reaction Status Date / Time cefepime AdvReac Vomiting Verified 07/27/17 20:18 ENT Exam Initial Vital Signs Temp Pulse Resp BP Pulse Ox 97.8 F 53 13 106/78 98 07/27/17 12:43 07/27/17 12:43 07/27/17 12:43 07/27/17 12:43 07/27/17 12:43 - General physical appearance well developed, well nourished, no distress, no pain, other (Patient presents with obvious trismus he has a tracheostomy in place difficulty with speaking and changes in the left cheek from radiation with firmness and wrinkling of the skin). negative: moderate distress, severe distress, moderate pain, severe pain , cachectic, obese - Eyes PERRL, normal ocular movement, icteric - ENT normal pinna, normal nares, normal mucosa, no congestion, Other (There is cerumen impaction in the left ear unable to visualize underlying tympanic membrane). negative: decreased hearing, deviated nasal septum, nasal discharge , poor usp, dentures, mucosal exudate, dry mucosa - Neck no masses, trachea midline, no lymphadectomy, other (Left neck and angle of jaw very firm and hard changes from radiation there is also a trach which is in place with some pus surrounding it and some mucoid drainage). negative: deviated trachea, diffuse goiter, limited ROM - Respiratory normal expansion, normal respiratory effort, clear to percussion, clear to auscultation - Abdomen Abdomen: soft, non tender, bowel sounds, no tender, no surgical scars - Integumentary no rash, no growths, no abnormal pigmentation - Neurologic normal coordination, normal sensation - Musculoskeletal normal gait, normal posture - Psychiatric oriented to time, oriented to person, oriented to place, speech is normal, memory intact Exam Initial Vital Signs Temp Pulse Resp BP Pulse Ox 97.8 F 53 13 106/78 98 07/27/17 12:43 07/27/17 12:43 07/27/17 12:43 07/27/17 12:43 07/27/17 12:43 Results - Labs 07/29/17 02:52 07/29/17 02:52 Abnormal lab results RBC 4.13 M/mcL (4.19-5.50) L 07/29/17 02:52 Hgb 11.4 g/dL (12.9-16.9) L 07/29/17 02:52 Hct 33.5 % (37.5-50.1) L 07/29/17 02:52 MCV 81.1 fL (83.0-100.0) L 07/29/17 02:52 MCH 27.6 pg (28.0-33.3) L 07/29/17 02:52 Lymphocytes # 0.5 K/mcL (0.6-4.6) L 07/29/17 02:52 Immature Plt Fraction 7.6 % (1.1-6.1) H 07/28/17 05:01 Sodium 133 mEq/L (136-145) L 07/29/17 02:52 Creatinine 0.66 mg/dL (0.72-1.25) L 07/29/17 02:52 BUN/Creatinine Ratio 27 (6-26) H 07/29/17 02:52 Glucose 104 mg/dL (70-99) H 07/29/17 02:52 POC Glucose 98 (58-89) H 07/28/17 12:59 Calculated Osmolality 278 (280-300) L 07/29/17 02:52 Albumin 3.0 g/dL (3.5-5.0) L 07/29/17 02:52 Albumin/Globulin Ratio 1.0 (1.1-2.2) L 07/29/17 02:52 Urine Ketones Trace mg/dL (Negative) H 07/27/17 17:00 Diabetes panel 07/29/17 Range/Units 02:52 Sodium 133 L (136-145) mEq/L Potassium 4.0 (3.5-4.5) mEq/L Chloride 103 (98-109) mEq/L Carbon Dioxide 23 (19-29) mEq/L BUN 18 (8-26) mg/dL Creatinine 0.66 L (0.72-1.25) mg/dL Glucose 104 H (70-99) mg/dL Calcium 8.7 (8.6-10.8) mg/dL AST 18 (5-34) Units/L ALT 23 (0-55) Units/L Alkaline Phosphatase 66 (38-126) Units/L Albumin 3.0 L (3.5-5.0) g/dL Calcium panel 07/29/17 Range/Units 02:52 Calcium 8.7 (8.6-10.8) mg/dL Albumin 3.0 L (3.5-5.0) g/dL Pituitary panel 07/29/17 Range/Units 02:52 Sodium 133 L (136-145) mEq/L Potassium 4.0 (3.5-4.5) mEq/L Chloride 103 (98-109) mEq/L Carbon Dioxide 23 (19-29) mEq/L BUN 18 (8-26) mg/dL Creatinine 0.66 L (0.72-1.25) mg/dL Glucose 104 H (70-99) mg/dL Calcium 8.7 (8.6-10.8) mg/dL Adrenal panel 07/29/17 Range/Units 02:52 Sodium 133 L (136-145) mEq/L Potassium 4.0 (3.5-4.5) mEq/L Chloride 103 (98-109) mEq/L Carbon Dioxide 23 (19-29) mEq/L BUN 18 (8-26) mg/dL Creatinine 0.66 L (0.72-1.25) mg/dL Glucose 104 H (70-99) mg/dL Calcium 8.7 (8.6-10.8) mg/dL Total Bilirubin 0.3 (0.2-1.2) mg/dL AST 18 (5-34) Units/L ALT 23 (0-55) Units/L Alkaline Phosphatase 66 (38-126) Units/L Albumin 3.0 L (3.5-5.0) g/dL All other labs normal. Consult Discharge Plan - Plan Referrals: Jose Guadalupe Sierra MD [Primary Care Provider] -
[2017-07-29] MEDS ORDERED: Bisacodyl 10 MG RECTAL SUPPOSITORY RC ONE (21:35)
[2017-07-30] MEDS: *HR* OxyCODONE Oral Soln 5 MG/5 ML UD.LIQ GTUBE SCH ×3 (00:56→08:39)
[2017-07-30 04:40] LABS: Hematocrit 40.1 % (37.5-50.1); Immature Granulocytes % 0.5 % (0-4); Mean Corpuscular HGB Conc 33.2 g/dL (31.6-35.5); Mean Corpuscular Hemoglobin 27.8 pg (28.0-33.3); Mean Corpuscular Volume 83.9 fL (83.0-100.0); Mean Platelet Volume 10.3 fL (9.4-12.4); Monocytes % 4.2 %; Platelet Count 159 K/mcL (140-400); Red Blood Count 4.78 M/mcL (4.19-5.50); Red Cell Distribution Width 14.1 % (11.5-14.5); Segmented Neutrophils % 89.2 %
[2017-07-30 04:41] LABS: Basophils % 0.1 %; Lymphocytes # 0.6 K/mcL (0.6-4.6); Monocytes # 0.4 K/mcL (0.0-1.3); Neutrophils # 8.7 K/mcL (1.6-8.9)
[2017-07-30 04:50] LABS: Hemoglobin 13.3 g/dL (12.9-16.9)
[2017-07-30 05:02] LABS: Alanine Aminotransferase 20 Units/L (0-55); Alkaline Phosphatase 71 Units/L (38-126); Aspartate Amino Transferase 16 Units/L (5-34); BUN/Creatinine Ratio 23 (6-26); Bilirubin,Total 0.3 mg/dL (0.2-1.2); Blood Urea Nitrogen 17 mg/dL (8-26); Calcium 9.1 mg/dL (8.6-10.8); Carbon Dioxide 26 mEq/L (19-29); Chloride 101 mEq/L (98-109); Globulin 3.1 g/dL (2.4-3.5); Glucose 116 mg/dL (70-99); Osmolality,Calculated 285 (280-300); Potassium 3.9 mEq/L (3.5-4.5); Sodium 136 mEq/L (136-145); Total Protein 6.1 g/dL (6.0-8.3); eGFR For African Americans > 60 (> 60); eGFR For Non-African Americans > 60 (> 60)
[2017-07-30] MEDS: Ipratropium/Albuterol Neb 3 ML IH SCH ×2 (05:09→11:03)
[2017-07-30] MEDS: Meropenem 1,000 MG in 0.9 % Sodium Chloride Mini Bag 100 ML IVPB SCH (05:44)
[2017-07-30] MEDS: Pantoprazole 40 MG VIAL IVP SCH (05:45)
[2017-07-30] MEDS: *HR* Heparin 5,000 UNIT/ML VIAL SQ SCH ×3 (05:47→20:58)
[2017-07-30] MEDS: *HR* Methadone 5 MG TABLET PO SCH ×2 (08:39→20:58)
[2017-07-30] MEDS: Gabapentin 300 MG CAPSULE PO SCH ×2 (08:39→20:58)
[2017-07-30] MEDS: Dexamethasone 4 MG/ML VIAL IVP SCH (08:39)
[2017-07-30] MEDS ORDERED: Ipratropium/Albuterol Neb 3 ML IH PRN (11:34)
--- NOTE | 2017-07-30 11:37 | Internal Med Progress Note ---
Date of Encounter: 07/30/17 Time of Encounter: 11:37 - Assessment and plan (1) Mastoiditis Current Visit: Yes Status: Chronic Assessment and plan: Improved headache today. MRI brain showed no evidence of metastatic disease, does show left mastoid effusion. Nonspecific finding. ENT consult appreciated, recommend outpatient ENT follow-up for audiometric studies. No acute intervention at this time. Qualifiers: Laterality: left Qualified Code(s): H70.92 - Unspecified mastoiditis, left ear (2) Bacterial tracheitis Current Visit: Yes Status: Acute Assessment and plan: Has been diagnosed during previous admission. Tracheal cultures grew Pseudomonas and E.coli and patient was discharged on IV Cefepime, which he could not tolerate due to nausea and vomiting. Pseudomonas is negative for ESBL, will hold off on carbapenems and start IV ceftazidime today. Monitor closely for adverse reactions. Supportive care with PRN antiemetics. Tracheostomy tube was replaced by ENT at bedside on July 29. 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 Follows with Oncology as outpatient; reviewed notes from previous admissions- unfortunately, at this time, only palliative immunotherapy is offered. Pain control. Continue Decadron. (6) Failure to thrive Current Visit: Yes Status: Chronic Assessment and plan: secondary to oral cavity cancer and poor oral intake and trismus. Continue PEG feeds, oral liquid diet as tolerated. Nutrition on board. Tube feeds have been held last night due to constipation. Discussed with patient and at bedside, agreeable to receiving full feeding tonight. 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 (11) Constipation by delayed colonic transit Current Visit: Yes Status: Chronic Assessment and plan: due to narcotics. Continue stool softeners and laxatives. Received Dulcolax suppository early this morning, followed by bowel movements. (12) Goals of care, counseling/discussion Current Visit: Yes Status: Acute Assessment and plan: Discussed goals of care with patient and his again. awaits outpatient oncology follow-up to discuss more regarding his life expectancy and prognosis., They understand the terminal nature of his cancer and the associated complications including facial pain, trismus, N/V, multiple frequent and prolonged hospitalizations, however unwilling to consider palliative care/ Hospice at this time. Code status is DNR-CCA/DNI. (13) Hypothyroidism Current Visit: Yes Status: Chronic Assessment and plan: continue Levothyroxine. Qualifiers: Hypothyroidism type: unspecified Qualified Code(s): E03.9 - Hypothyroidism , unspecified - Subjective Interval history: Reports severe constipation and refused tube feeds midway last night due to abdominal discomfort and pressure; had a big bowel movement with Dulcolax suppository and feels better now; no nausea, vomiting, headache today. - Constitutional Vitals: Temp Pulse Resp BP Pulse Ox 97.7 F 54 16 151/77 98 07/30/17 10:49 07/30/17 10:49 07/30/17 10:49 07/30/17 10:49 07/30/17 10:49 General appearance: Present: cooperative, A&O X 3, underweight, answers questions appropriately - Respiratory Respiratory exam: Present: CTAB. Absent: accessory muscle use, rales, rhonchi, wheezes - Cardiovascular Cardiovascular exam: Present: RRR, +S1, +S2. Absent: diastolic murmur, gallop, rubs, systolic murmur - GI/Abdominal GI/Abdominal exam: Present: normal bowel sounds, soft (PEG tube in place), no peritoneal signs. Absent: distended, tenderness - Extremities Exam Extremities exam: Present: full ROM, warm, radial pulses palpable and symmetrical. Absent: calf tenderness, cyanotic, pedal edema Internal Medicine: Result - Labs CBC & Chem 7: 07/30/17 04:29 07/30/17 04:29 Labs: Short CBC 07/30/17 Range/Units 04:29 WBC 9.8 D (4.3-11.1) K/mcL Hgb 13.3 D (12.9-16.9) g/dL Hct 40.1 (37.5-50.1) % Plt Count 159 (140-400) K/mcL Neutrophils # 8.7 (1.6-8.9) K/mcL BMP 07/30/17 04:29 Sodium 136 Potassium 3.9 Chloride 101 Carbon Dioxide 26 BUN 17 Creatinine 0.74 Glucose 116 H Calcium 9.1 Liver Function 07/30/17 Range/Units 04:29 Total Bilirubin 0.3 (0.2-1.2) mg/dL AST 16 (5-34) Units/L ALT 20 (0-55) Units/L Alkaline Phosphatase 71 (38-126) Units/L Albumin 3.0 L (3.5-5.0) g/dL Consult Discharge Plan - Plan Referrals: Jose Guadalupe Sierra MD [Primary Care Provider] - Bernadine Da Silva DO [Non-Partnered Physician] - 08/16/17 10:45 am
[2017-07-30] MEDS: WATER IVPB SCH ×2 (14:21→22:55)
[2017-07-30] MEDS: D5 IVPB SCH ×2 (14:21→22:55)
[2017-07-30] MEDS: CEFTAZIDIME IVPB SCH ×2 (14:21→22:55)
[2017-07-30] MEDS: *HR* OxyCODONE Oral Soln 5 MG/5 ML UD.LIQ GTUBE PRN (23:46)
[2017-07-31 05:04] LABS: Basophils % 0.1 %; Eosinophils % 0.1 %; Hematocrit 35.6 % (37.5-50.1); Immature Granulocytes % 0.4 % (0-4); Lymphocytes # 0.6 K/mcL (0.6-4.6); Lymphocytes % 8.3 %; Mean Corpuscular HGB Conc 33.7 g/dL (31.6-35.5); Mean Corpuscular Hemoglobin 27.3 pg (28.0-33.3); Mean Corpuscular Volume 81.1 fL (83.0-100.0); Monocytes # 0.4 K/mcL (0.0-1.3); Monocytes % 4.7 %; Neutrophils # 6.6 K/mcL (1.6-8.9); Platelet Count 144 K/mcL (140-400); Red Blood Count 4.39 M/mcL (4.19-5.50); Red Cell Distribution Width 14.2 % (11.5-14.5); Segmented Neutrophils % 86.4 %
[2017-07-31 05:20] LABS: Alanine Aminotransferase 17 Units/L (0-55); Albumin 2.9 g/dL (3.5-5.0); Alkaline Phosphatase 67 Units/L (38-126); Aspartate Amino Transferase 15 Units/L (5-34); BUN/Creatinine Ratio 22 (6-26); Bilirubin,Total 0.3 mg/dL (0.2-1.2); Blood Urea Nitrogen 14 mg/dL (8-26); Calcium 8.9 mg/dL (8.6-10.8); Carbon Dioxide 27 mEq/L (19-29); Chloride 101 mEq/L (98-109); Glucose 110 mg/dL (70-99); Osmolality,Calculated 281 (280-300); Potassium 4.2 mEq/L (3.5-4.5); Sodium 135 mEq/L (136-145); Total Protein 5.9 g/dL (6.0-8.3); eGFR For African Americans > 60 (> 60); eGFR For Non-African Americans > 60 (> 60)
[2017-07-31] MEDS: *HR* Heparin 5,000 UNIT/ML VIAL SQ SCH ×3 (05:38→21:20)
[2017-07-31] MEDS: Gabapentin 300 MG CAPSULE PO SCH ×2 (09:15→21:21)
[2017-07-31] MEDS: *HR* Methadone 5 MG TABLET PO SCH ×2 (09:15→21:21)
[2017-07-31] MEDS: *HR* OxyCODONE Oral Soln 5 MG/5 ML UD.LIQ GTUBE PRN ×3 (09:27→21:20)
--- NOTE | 2017-07-31 14:52 | Internal Med Progress Note ---
Date of Encounter: 07/31/17 Time of Encounter: 14:50 - Assessment and plan (1) Failure to thrive Current Visit: Yes Status: Chronic Assessment and plan: secondary to oral cavity cancer and poor oral intake and trismus. Continue PEG feeds, oral liquid diet as tolerated. Nutrition on board. Qualifiers: Failure to thrive age range: in adult Qualified Code(s): R62.7 - Adult failure to thrive (2) Dysphagia Current Visit: Yes Status: Acute Assessment and plan: On PEG tube feedings Qualifiers: Qualified Code(s): R13.10 - Dysphagia, unspecified (3) Bacterial tracheitis Current Visit: Yes Status: Acute Assessment and plan: Has been diagnosed during previous admission. Tracheal cultures grew Pseudomonas and E.coli and patient was discharged on IV Cefepime, which he could not tolerate due to nausea and vomiting. Not sure his Nausea and vomiting due to Cefepime However currently he has been tolerating Ceftazidime well with out any difficulties since y/d Supportive care with PRN antiemetics. Tracheostomy tube was replaced by ENT at bedside on July 29. 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 Follows with Oncology as outpatient; reviewed notes from previous admissions- unfortunately, at this time, only palliative immunotherapy is offered. Pain control. Continue Decadron. (5) Hypothyroidism Current Visit: Yes Status: Chronic Assessment and plan: continue Levothyroxine. Qualifiers: Hypothyroidism type: unspecified Qualified Code(s): E03.9 - Hypothyroidism , unspecified (6) Chronic mastoiditis of left side Current Visit: Yes Status: Chronic Assessment and plan: Evaluated by ENT Recommend to f/u with ENT as an out pt - Subjective Interval history: Mr. Gunter is a 61 year old male with medical history of asthma, cancer of the neck, COPD, and hypertension presents from the ED with chief complaint of lethargy and weakness due to failed outpatient therapy for acute tracheitis. Patient with trach states he was placed on cefepime three days ago which made the patient nauseous and vomit. Pt was admitted in the hospital and swicthed him to Ceftazidime.Since pt has been doing well. No acute events noticed over night. - Constitutional Vitals: Temp Pulse Resp BP Pulse Ox 97.5 F L 53 18 166/56 98 07/31/17 11:41 07/31/17 11:41 07/31/17 11:41 07/31/17 11:41 07/31/17 11:41 General appearance: Present: cooperative, A&O X 3, underweight, answers questions appropriately - Head Head exam: Present: atraumatic, normal inspection - ENT Additional comments: mild swelling and tenderness Left mastoid TMJ area. - Neck Additional comments: Trache+ - Respiratory Respiratory exam: Present: decreased breath sounds. Absent: rales, respiratory distress, rhonchi - Cardiovascular Cardiovascular exam: Present: RRR, +S1, +S2, systolic murmur - GI/Abdominal GI/Abdominal exam: Present: normal bowel sounds, soft. Absent: rebound, rigid, tenderness Additional comments: PEG tube + - Extremities Exam Extremities exam: Absent: pedal edema, tenderness - Psychiatric Psychiatric exam: Present: normal affect, normal mood Internal Medicine: Result - Labs CBC & Chem 7: 07/31/17 04:10 07/31/17 04:10 Labs: Short CBC 07/31/17 Range/Units 04:10 WBC 7.6 (4.3-11.1) K/mcL Hgb 12.0 L (12.9-16.9) g/dL Hct 35.6 L (37.5-50.1) % Plt Count 144 (140-400) K/mcL Neutrophils # 6.6 (1.6-8.9) K/mcL BMP 07/31/17 04:10 Sodium 135 L Potassium 4.2 Chloride 101 Carbon Dioxide 27 BUN 14 Creatinine 0.64 L Glucose 110 H Calcium 8.9 Liver Function 07/31/17 Range/Units 04:10 Total Bilirubin 0.3 (0.2-1.2) mg/dL AST 15 (5-34) Units/L ALT 17 (0-55) Units/L Alkaline Phosphatase 67 (38-126) Units/L Albumin 2.9 L (3.5-5.0) g/dL Consult Discharge Plan - Plan Referrals: Jose Guadalupe Sierra MD [Primary Care Provider] - Bernadine Da Silva DO [Non-Partnered Physician] - 08/16/17 10:45 am
[2017-08-01 05:21] LABS: Basophils % 0.1 %; Eosinophils % 0.2 %; Hematocrit 37.3 % (37.5-50.1); Hemoglobin 12.5 g/dL (12.9-16.9); Immature Granulocytes % 0.7 % (0-4); Lymphocytes # 0.6 K/mcL (0.6-4.6); Lymphocytes % 7.6 %; Mean Corpuscular HGB Conc 33.5 g/dL (31.6-35.5); Mean Corpuscular Hemoglobin 27.6 pg (28.0-33.3); Mean Corpuscular Volume 82.3 fL (83.0-100.0); Monocytes # 0.2 K/mcL (0.0-1.3); Neutrophils # 7.1 K/mcL (1.6-8.9); Platelet Count 156 K/mcL (140-400); Red Blood Count 4.53 M/mcL (4.19-5.50); Red Cell Distribution Width 14.2 % (11.5-14.5); Segmented Neutrophils % 88.4 %
[2017-08-01 05:41] LABS: BUN/Creatinine Ratio 23 (6-26); Blood Urea Nitrogen 14 mg/dL (8-26); Calcium 9.1 mg/dL (8.6-10.8); Carbon Dioxide 28 mEq/L (19-29); Chloride 100 mEq/L (98-109); Glucose 134 mg/dL (70-99); Osmolality,Calculated 280 (280-300); Potassium 3.8 mEq/L (3.5-4.5); Sodium 134 mEq/L (136-145); eGFR For African Americans > 60 (> 60); eGFR For Non-African Americans > 60 (> 60)
[2017-08-01] MEDS: *HR* Heparin 5,000 UNIT/ML VIAL SQ SCH ×2 (05:45→15:48)
[2017-08-01] MEDS: *HR* OxyCODONE Oral Soln 5 MG/5 ML UD.LIQ GTUBE PRN ×2 (05:45→12:47)
[2017-08-01] MEDS: *HR* Methadone 5 MG TABLET PO SCH (10:36)
[2017-08-01] MEDS: Gabapentin 300 MG CAPSULE PO SCH (10:36)
--- NOTE | 2017-08-01 10:54 | Discharge Summary ---
Date of Encounter: 08/01/17 Time of Encounter: 10:51 - Discharge Diagnosis (1) Bacterial tracheitis Priority: Primary Status: Acute (2) Failure to thrive Priority: Primary Status: Chronic Qualifiers: Failure to thrive age range: in adult Qualified Code(s): R62.7 - Adult failure to thrive (3) Dysphagia Priority: Primary Status: Acute Qualifiers: Qualified Code(s): R13.10 - Dysphagia, unspecified (4) Tonsillar cancer Priority: Secondary Status: Chronic (5) Hypothyroidism Priority: Secondary Status: Chronic Qualifiers: Hypothyroidism type: unspecified Qualified Code(s): E03.9 - Hypothyroidism , unspecified (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 - Discharge Medications Prescriptions: Ceftazidime in Dextrose5%Water [Ceftazidime 1 gm Piggyback] 1 gm IV Q8HR 5 Days mls Saccharomyces Boulardii [Florastor] 250 mg PO BID #10 capsule Home Medications: Lactose-Reduced Food/Fiber [Jevity 1.5 Leeroy Liquid] 1 can PO AD 07/19/17 [History ] Levothyroxine [Synthroid] 125 mcg GTUBE QAM 07/19/17 [History] Prochlorperazine Maleate [Compazine] 10 mg GTUBE Q8HR PRN 07/19/17 [History] Methadone Oral Concentrate [Methadone] 5 mg GTUBE BID #10 mls 07/23/17 [Rx] OxyCODONE Oral Soln [OxyCODONE ORAL SOLN] 10 mg GTUBE Q4H 7 Days #500 mls [Rx] Sennosides [Senna] 17.6 mg PO BID #100 mls 07/23/17 [Rx] Dexamethasone [Decadron] 4 mg PO BID #21 tablet 07/24/17 [Rx] Gabapentin 300 mg PO BID #120 solution 07/24/17 [Rx] Famotidine [Pepcid] 40 mg GTUBE DAILY 07/27/17 [History] Ibuprofen [Motrin] 600 mg GTUBE Q6HR PRN 07/27/17 [History] Ondansetron HCl [Zofran] 4 mg GTUBE Q8H 07/27/17 [History] Pantoprazole Sodium [Protonix] 40 mg GTUBE DAILY 07/27/17 [History] Ceftazidime in Dextrose5%Water [Ceftazidime 1 gm Piggyback] 1 gm IV Q8HR 5 Days mls 08/01/17 [Rx] Saccharomyces Boulardii [Florastor] 250 mg PO BID #10 capsule 08/01/17 [Rx] Allergies/Adverse Reactions: 3 Allergy/AdvReac Type Severity Reaction Status Date / Time No Known Allergies Allergy Verified 07/31/17 14:47 Date of admission: 07/27/17 21:11 Primary care physician: Jose Guadalupe Sierra MD Consults: 07/27/17 21:28 Consult to Box Car Bracer [CONS] Routine Reason for SW Consult: Family wants POA clarification. States there is a POA but is unsure if it has been notarized. 07/28/17 13:17 Consult to Nutrition [CONS] Routine Comment: Consulting Provider: NUTRITION Reason for Dietary Consult: TF Start and Manage 07/29/17 09:55 Consult to ENT [CONS] Routine Consulting Provider: [facility] [place] Reason for Consult: Left mastoid effusion, chronic tracheostomy tube Call Completed: Yes - Patient Status Disposition: Home Health Service Condition: Good Overall status at discharge: patient is back to baseline - Discharge Instructions Follow Up With: Jose Guadalupe Sierra MD [Primary Care Provider] - Bernadine Da Silva DO [Non-Partnered Physician] - 08/16/17 10:45 am Jean Kauffman MD [Non-Partnered Physician] - Chitra Guillory MD [Partnered Physician] - - Diet and Activity Activity: increase activity as tolerated Diet: other (continue tube feedings) Hospital course: Mr. Gunter is a 61 year old male with medical history of asthma, cancer of the neck, COPD, and hypertension presents from the ED with chief complaint of lethargy and weakness due to failed outpatient therapy for acute tracheitis. Patient with trach states he was placed on cefepime three days ago which made the patient nauseous and vomit. Pt was admitted in the hospital and started on Meropenem initially. However marino blackaer ESBL and his nausea and vomiting also does not look like cephalosporin allergic reaction. We switched him to Ceftazidime. Since then pt has been doing well. No events noticed in last 2 days. So will dc him home with home health services and recommend to finish 5 more days of IV Abx. - Time Spent with Patient Total time spent providing and/or coordinating discharge services: - Constitutional Vitals: Temp Pulse Resp BP Pulse Ox 97.4 F L 79 17 131/77 95 08/01/17 07:10 08/01/17 07:10 08/01/17 07:10 08/01/17 07:10 08/01/17 07:10 General appearance: Present: cooperative, A&O X 3, underweight, answers questions appropriately - Head Head exam: Present: atraumatic, normal inspection - ENT Additional comments: mild swelling and tenderness Left mastoid TMJ area. - Respiratory Respiratory exam: Present: decreased breath sounds. Absent: rales, respiratory distress, rhonchi, wheezes - Cardiovascular Cardiovascular exam: Present: RRR, +S1, +S2. Absent: systolic murmur - GI/Abdominal GI/Abdominal exam: Present: normal bowel sounds, soft. Absent: rebound, rigid, tenderness Additional comments: PEG + - Back Exam Back exam: Absent: CVA tenderness (L), CVA tenderness (R) - Neurological Exam Neurological exam: Present: alert, oriented X3 - Psychiatric Psychiatric exam: Present: normal affect, normal mood
--- NOTE | 2017-08-01 14:40 | Physician Discharge Referral ---
Home Health/Hosp Referral Info Transfer to: Home Health Provider in Charge Post Discharge: PCP - Diagnosis (1) Bacterial tracheitis Status: Acute (2) Failure to thrive Status: Chronic (3) Dysphagia Status: Acute (4) Tonsillar cancer Status: Chronic (5) Hypothyroidism Status: Chronic (6) Chronic mastoiditis of left side Status: Chronic - Respiratory Orders Smoking Cessation: Smoking cessation has been advised. For more information, call the [place] Tobacco Quit Line at 2-791-WQIP-NOW. - Services Needed Following services are medically necessary services: Nursing - Transfer Medications Prescriptions: Ceftazidime in Dextrose5%Water [Ceftazidime 1 gm Piggyback] 1 gm IV Q8HR 5 Days mls Lactobacillus [Culturelle] 1 each PO BID #20 cap.sprink Home Medications: Lactose-Reduced Food/Fiber [Jevity 1.5 Leeroy Liquid] 1 can PO AD 07/19/17 [History ] Levothyroxine [Synthroid] 125 mcg GTUBE QAM 07/19/17 [History] Prochlorperazine Maleate [Compazine] 10 mg GTUBE Q8HR PRN 07/19/17 [History] Methadone Oral Concentrate [Methadone] 5 mg GTUBE BID #10 mls 07/23/17 [Rx] OxyCODONE Oral Soln [OxyCODONE ORAL SOLN] 10 mg GTUBE Q4H 7 Days #500 mls [Rx] Sennosides [Senna] 17.6 mg PO BID #100 mls 07/23/17 [Rx] Dexamethasone [Decadron] 4 mg PO BID #21 tablet 07/24/17 [Rx] Gabapentin 300 mg PO BID #120 solution 07/24/17 [Rx] Famotidine [Pepcid] 40 mg GTUBE DAILY 07/27/17 [History] Ibuprofen [Motrin] 600 mg GTUBE Q6HR PRN 07/27/17 [History] Ondansetron HCl [Zofran] 4 mg GTUBE Q8H 07/27/17 [History] Pantoprazole Sodium [Protonix] 40 mg GTUBE DAILY 07/27/17 [History] Ceftazidime in Dextrose5%Water [Ceftazidime 1 gm Piggyback] 1 gm IV Q8HR 5 Days mls 08/01/17 [Rx] Lactobacillus [Culturelle] 1 each PO BID #20 capaditya 08/01/17 [Rx] Allergies/Adverse Reactions: 3 Allergy/AdvReac Type Severity Reaction Status Date / Time No Known Allergies Allergy Verified 07/31/17 14:47 Certification: Further, I certify that my clinical findings support that this patient is homebound (i.e. absences from home require considerable and taxing effort and are for medical reasons or hoahaoism services or infrequently or short duration when for other reasons) because: Homebound Reason: Patient requires assistance of a person or device to safely leave home Attestation: My signature below is to certify that this patient is under my care and that I, or nurse practitioner, or a physician's restaurant assistant working with me, has a face-to -face encounter with this patient.
[2017-08-01 15:25] VITALS: BP 153/79
== END 2017-08-01 15:57 | disposition home health service (06) | DRG 202 ==
LOC: 3ANU 12:40 → EMEROO 12:40 → 3ANU 18:08 → SUATTDRO 21:11
PROVIDERS: ADMIT Internal Medicine; ATTEND Family Medicine

== ENCOUNTER 2019-05-26 09:22 | Inpatient (IN) ==
[2019-05-26 10:31] LABS: Basophils % 0.2 %; Eosinophils % 0.4 %; Hematocrit 42.9 % (37.5-50.1); Hemoglobin 14.9 g/dL (12.9-16.9); Immature Granulocytes % 0.4 % (0-4); Lymphocytes # 0.7 K/mcL (0.6-4.6); Lymphocytes % 7.8 %; Mean Corpuscular HGB Conc 34.7 g/dL (31.6-35.5); Mean Corpuscular Hemoglobin 28.5 pg (28.0-33.3); Mean Corpuscular Volume 82.2 fL (83.0-100.0); Mean Platelet Volume 9.5 fL (9.4-12.4); Monocytes # 0.5 K/mcL (0.0-1.3); Monocytes % 5.5 %; Neutrophils # 7.7 K/mcL (1.6-8.9); Platelet Count 247 K/mcL (140-400); Red Blood Count 5.22 M/mcL (4.19-5.50); Red Cell Distribution Width 15.1 % (11.5-14.5); Segmented Neutrophils % 85.7 %
[2019-05-26 10:47] LABS: Bilirubin,Urine Negative (Negative); Blood,Urine Moderate (Negative); Clarity,Urine Turbid (Clear); Color,Urine Yellow (Yellow); Glucose,Urine (UA) Normal (Normal); Ketones,Urine Negative (Negative); Leukocyte Esterase,Urine Large (Negative); Nitrite,Urine Negative (Negative); PH,Urine 6.5 pH Units (5.0-8.0); Protein,Urine 30 mg/dL (Neg-Trace); Specific Gravity,Urine 1.017 (1.010-1.025); Urobilinogen,Urine Normal (Normal)
[2019-05-26 10:49] LABS: Bacteria,Urine Many per hpf (None-Few); Hyaline Casts,Urine None Seen per lpf (None-Few); RBC,Urine 15-30 per hpf (0-3); Squamous Epithelial Cell,Urine Many per lpf (None-Few); WBC,Urine TNTC per hpf (0-3)
[2019-05-26 10:57] LABS: Alanine Aminotransferase 13 Units/L (7-52); Albumin 3.4 g/dL (3.5-5.7); Albumin/Globulin Ratio 1.2 (1.1-2.2); Alkaline Phosphatase 75 Units/L (34-104); Aspartate Amino Transferase 23 Units/L (13-39); BUN/Creatinine Ratio 14 (6-26); Bilirubin,Direct 0.2 mg/dL (0.0-0.2); Bilirubin,Indirect 0.2 mg/dL (0.0-1.2); Bilirubin,Total 0.4 mg/dL (0.3-1.0); Blood Urea Nitrogen 10 mg/dL (8-23); Calcium 9.2 mg/dL (8.6-10.3); Carbon Dioxide 25 mEq/L (23-29); Chloride 81 mEq/L (98-107); Globulin 2.8 g/dL (2.4-3.5); Glucose 102 mg/dL (70-105); Lipase 13 Units/L (11-82); Magnesium 1.8 mg/dL (1.6-2.6); Osmolality,Calculated 237 (280-300); Potassium 3.8 mEq/L (3.5-5.1); Sodium 114 mEq/L (136-145); Total Protein 6.2 g/dL (6.4-8.9); Troponin I 0.03 ng/mL (< 0.04); eGFR For African Americans > 60 (> 60); eGFR For Non-African Americans > 60 (> 60)
[2019-05-26] MEDS ORDERED: 0.9 % Sodium Chloride 1,000 ML IVC STA ×3 (11:02→13:15)
[2019-05-26] MEDS ORDERED: Lidocaine/EPI 1:100k 1% 30 ML VIAL INFILT ONE (11:14)
[2019-05-26] MEDS ORDERED: Lidocaine -MPF 1% 5 ML AMPUL ONE (11:19)
[2019-05-26] MEDS ORDERED: 0.9 % Sodium Chloride 1,000 ML ONE (12:05)
[2019-05-26] MEDS ORDERED: cefTRIAXone 1,000 MG in Water for inj. (sterile) 10 ML IVP ONE (12:21)
[2019-05-26] MEDS ORDERED: Piperacillin/Tazobactam 3.375 GM in 0.9 % Sodium Chloride Mini Bag 100 ML IVPB ONE (12:30)
[2019-05-26 15:14] LABS: INR 0.9; Prothrombin Time 10.4 Seconds (9.4-12.1)
[2019-05-26] MEDS ORDERED: *HR* OxyCODONE Immed Rel 5 MG TABLET GTUBE PRN (16:59)
[2019-05-26 17:58] LABS: BUN/Creatinine Ratio 19 (6-26); Blood Urea Nitrogen 10 mg/dL (8-23); Carbon Dioxide 23 mEq/L (23-29); Chloride 92 mEq/L (98-107); Glucose 103 mg/dL (70-105); Osmolality,Calculated 253 (280-300); Potassium 3.3 mEq/L (3.5-5.1); Sodium 122 mEq/L (136-145); eGFR For African Americans > 60 (> 60); eGFR For Non-African Americans > 60 (> 60)
[2019-05-26 18:50] LABS: Sodium, Urine 49.5 mEq/L
[2019-05-26] MEDS ORDERED: D5% in 0.45% NACL 1,000 ML IVC ONE (18:51)
[2019-05-26] MEDS: D5% in 0.45% NACL 1,000 ML IVC SCH (19:00)
[2019-05-26 21:39] LABS: BUN/Creatinine Ratio 16 (6-26); Blood Urea Nitrogen 10 mg/dL (8-23); Calcium 8.5 mg/dL (8.6-10.3); Carbon Dioxide 23 mEq/L (23-29); Chloride 92 mEq/L (98-107); Glucose 138 mg/dL (70-105); Osmolality,Calculated 255 (280-300); Potassium 3.4 mEq/L (3.5-5.1); Sodium 122 mEq/L (136-145); eGFR For African Americans > 60 (> 60); eGFR For Non-African Americans > 60 (> 60)
[2019-05-26] MEDS: Piperacillin/Tazobactam 3.375 GM in 0.9 % Sodium Chloride Mini Bag 100 ML IVPB SCH (23:36)
[2019-05-27 01:26] LABS: BUN/Creatinine Ratio 14 (6-26); Blood Urea Nitrogen 9 mg/dL (8-23); Calcium 8.2 mg/dL (8.6-10.3); Carbon Dioxide 22 mEq/L (23-29); Chloride 92 mEq/L (98-107); Glucose 142 mg/dL (70-105); Osmolality,Calculated 255 (280-300); Potassium 3.3 mEq/L (3.5-5.1); Sodium 122 mEq/L (136-145); eGFR For African Americans > 60 (> 60); eGFR For Non-African Americans > 60 (> 60)
[2019-05-27] MEDS: D5% in 0.45% NACL 1,000 ML IVC SCH ×5 (01:31→19:43)
[2019-05-27 05:45] LABS: BUN/Creatinine Ratio 11 (6-26); Blood Urea Nitrogen 8 mg/dL (8-23); Calcium 8.3 mg/dL (8.6-10.3); Carbon Dioxide 23 mEq/L (23-29); Chloride 92 mEq/L (98-107); Glucose 132 mg/dL (70-105); Osmolality,Calculated 256 (280-300); Potassium 3.5 mEq/L (3.5-5.1); Sodium 123 mEq/L (136-145); eGFR For African Americans > 60 (> 60); eGFR For Non-African Americans > 60 (> 60)
[2019-05-27 06:02] LABS: Triiodothyronine (T3) Free 1.5 pg/mL (2.50-3.90)
[2019-05-27 06:28] LABS: Thyroid Stimulating Hormone 117.17 mcIU/mL (0.340-5.600)
[2019-05-27] MEDS: Piperacillin/Tazobactam 3.375 GM in 0.9 % Sodium Chloride Mini Bag 100 ML IVPB SCH ×4 (08:54→23:54)
[2019-05-27] MEDS ORDERED: Levothyroxine Sodium 100 MCG VIAL IVP SCH (09:00)
[2019-05-27 09:39] LABS: BUN/Creatinine Ratio 11 (6-26); Blood Urea Nitrogen 7 mg/dL (8-23); Calcium 8.2 mg/dL (8.6-10.3); Carbon Dioxide 24 mEq/L (23-29); Chloride 92 mEq/L (98-107); Glucose 116 mg/dL (70-105); Osmolality,Calculated 253 (280-300); Potassium 3.3 mEq/L (3.5-5.1); Sodium 122 mEq/L (136-145); eGFR For African Americans > 60 (> 60); eGFR For Non-African Americans > 60 (> 60)
[2019-05-27] MEDS ORDERED: D5% in 0.45% NACL 1,000 ML IVC SCH (10:19)
[2019-05-27] MEDS ORDERED: 0.9 % Sodium Chloride 500 ML ONE (11:06)
[2019-05-27] MEDS ORDERED: Isovue-300 50ML VIAL IVP ONE (12:06)
[2019-05-27 14:21] LABS: BUN/Creatinine Ratio 11 (6-26); Blood Urea Nitrogen 7 mg/dL (8-23); Calcium 8.4 mg/dL (8.6-10.3); Carbon Dioxide 24 mEq/L (23-29); Chloride 93 mEq/L (98-107); Glucose 117 mg/dL (70-105); Osmolality,Calculated 255 (280-300); Potassium 3.1 mEq/L (3.5-5.1); Sodium 123 mEq/L (136-145); eGFR For African Americans > 60 (> 60); eGFR For Non-African Americans > 60 (> 60)
[2019-05-27] MEDS ORDERED: Piperacillin/Tazobactam 3.375 GM in 0.9 % Sodium Chloride Mini Bag 100 ML IVPB SCH (16:00)
[2019-05-27] MEDS: *HR* OxyCODONE Oral Soln 5 MG/5 ML UD.LIQ GTUBE PRN (19:38)
[2019-05-28] MEDS: D5% in 0.45% NACL 1,000 ML IVC SCH ×2 (02:15→09:07)
[2019-05-28] MEDS: *HR* OxyCODONE Oral Soln 5 MG/5 ML UD.LIQ GTUBE PRN ×4 (05:39→22:51)
[2019-05-28] MEDS ORDERED: Levothyroxine Sodium 100 MCG VIAL IVP SCH ×2 (09:00)
[2019-05-28] MEDS: Piperacillin/Tazobactam 3.375 GM in 0.9 % Sodium Chloride Mini Bag 100 ML IVPB SCH ×3 (09:06→23:42)
[2019-05-28] MEDS ORDERED: Potassium Chloride Elixir 20 MEQ/15 ML UDC GTUBE ONE (09:29)
[2019-05-28] MEDS: D5% in 0.9% NACL 1,000 ML IVC SCH ×2 (18:42→22:46)
[2019-05-28 20:15] VITALS: BP 89/50
[2019-05-28] MEDS ORDERED: Levothyroxine Sodium 100 MCG VIAL IVP ONE (20:30)
[2019-05-29] MEDS: *HR* OxyCODONE Oral Soln 5 MG/5 ML UD.LIQ GTUBE PRN ×3 (03:46→11:25)
[2019-05-29] MEDS ORDERED: Levothyroxine Sodium 100 MCG VIAL IVP SCH ×2 (06:30→09:00)
[2019-05-29] MEDS: Piperacillin/Tazobactam 3.375 GM in 0.9 % Sodium Chloride Mini Bag 100 ML IVPB SCH (07:42)
== END 2019-05-29 13:35 | disposition hospice, home (50) | DRG 393 ==
LOC: EMEROOARM 09:22 → ICNU 14:37 → SUATTDRO 14:37 → ICNU 15:24
PROVIDERS: ADMIT Internal Medicine Pulmonary Disease; ATTEND Internal Medicine

== ENCOUNTER 2019-07-01 13:25 | Inpatient (IN) ==
--- NOTE | 2019-07-01 13:35 | Pallative History & Physical ---
Date of Encounter: 07/01/19 Time of Encounter: 17:06 Assessment and Plan (1) Palliative care by specialist Current visit: No Status: Acute Pt's spouse Nuria is documented [facility] and his caregiver at home. Paperwork on file in chart. (2) Cancer associated pain Current visit: No Status: Chronic Pt currently on oxycodone 10-20mg per PEG Q4hrs PRN at home. Start 10mg oxycodone Q4hr ATC per PEG + 10mg oxycodone Q4hr PRN per PEG for breakthrough pain. (3) Trigeminal neuralgia of left side of face Current visit: Yes Status: Acute r/t head/neck ca. Start Tegretol 100mg BID per PEG tube. (4) Agitation Current visit: No Status: Acute Continue Haldol 2mg oral concentrate Q4hr PRN per PEG for agitation. (5) At risk for constipation Current visit: No Status: Acute Last BM-yesterday per forward air controller/air officer. Continue bowel regimen of: Senna 17.2mg BID for constipation. (takes PRN at home) With recent worsening constipation at home, will schedule while inpatient. Goal is daily BM while on opioid therapy. (6) Nausea Current visit: No Status: Acute Continue Compazine 10mg per PEG tube Q6hrs PRN for nausea. (7) Insomnia Current visit: No Status: Acute Continue Ambien 5mg per PEG PRN for sleep. (home med) Qualifiers: Insomnia type: other insomnia Qualified Code(s): G47.09 - Other insomnia (8) Depression Current visit: No Status: Acute Continue Citalopram 20mg per PEG daily. (home med) Qualifiers: Depression Type: unspecified Qualified Code(s): F32.9 - Major depressive disorder, single episode, unspecified (9) Head and neck cancer Current visit: No Status: Acute s/p chemoradiation. Currently on home hospice with [facility]. Internal Medicine - H&P: HPI Chief complaint: uncontrolled pain and agitation Admitted From: Home Plans for Post Hospital Care: Hospice - Home History of present illness: Mr. Gunter is a 63 year old male with hx of recurrent head and neck cancer s/p chemoradiation who is enrolled in [facility] at home. Pt has become increasingly agitated and intermittently refusing care at home. Pt also reports uncontrolled pain at home. Pt's spouse Nuria having difficulty caring for patient at home and thus it was decided to admit patient GIP for aggressive symptom management. Other pertinent medical hx includes: COPD, anxiety and depression. Pt is lying in bed, appears uncomfortable, communicates by writing-writing only pain today when asked questions, difficulty mouthing words at the time of the visit. No family present at bedside. Pt reports pain in the left side of his face, reports as burning, constant pain. He denies any additional locations of pain at the time of the visit. He denies constipation, nausea or any additional symptoms at this time. Discussed with patient that we would be making adjustments to his medications and work towards better pain control. He denies any additional needs at this time. Past Med Surg Social Fam HX - Past Medical History Medical history: cancer, COPD Additional medical history: Lung cancer with mets to oral. Psychiatric history: anxiety, depression - Past Surgical History Surgical History: tracheostomy Additional surgical history: feeding tube, neck and back surgery. surgery on right hand. - Social History Smoking Status: Former smoker Smokeless Tobacco Status: No Alcohol use: none Drug use: none - Family History Mother Family Member Ethnicity: Non- Living Status: Hx Family Cancer: Yes Father Family Member Ethnicity: Non- Living Status: Brother Family Member Ethnicity: Non- Living Status: Hx Family Endocrine Disorder: Yes (DM) Sister Family Member Ethnicity: Non- Living Status: Hx Family Cardiac Disorders: Yes (Aneurysm) Internal Medicine - H&P: Meds Levothyroxine Sodium [Levoxyl] 150 mcg GTUBE QAM 05/26/19 [History] OxyCODONE Immed Rel [Roxicodone 10 MG] 10 - 20 mg GTUBE Q4H PRN 05/26/19 [History] Amoxicillin/Clavulanate [Augmentin Susp] 600 mg PO Q8HR 7 Days #200 udc 05/28/19 [Rx] Allergy/AdvReac Type Severity Reaction Status Date / Time No Known Allergies Allergy Verified 11/12/18 13:29 ROS unobtainable: other Review of systems: unable to complete d/t difficulty communicating with patient. Able to write a few words on paper at the time of the visit. Palliative Care-Exam - Constitutional Exam: CONSTITUTIONAL/GENERAL: Chronically ill-appearing, cachectic, awake, difficulty communicating-writes on paper, appears uncomfortable. Ear/Nose/Mouth/Throat (EMNT): Patent, atraumatic, trach present. CARDIOVASCULAR: Pulse regular; No edema. No cyanosis/ischemia. RESPIRATORY: Unlabored. Symmetric, normal effort. Secretions noted. GASTROINTESTINAL: Soft, non-distended. Hypoactive bowel sounds present. PEG tube present. GENITOURINARY: Howell catheter present. MUSCULOSKELETAL: No deformities; No joint swelling or erythema. INTEGUMENTARY: No rashes or lesions noted. NEUROLOGIC: No gross motor or sensory deficits appreciated. Pt communicates by writing and mouthing words. PSYCHIATRY: Unable to fully assess d/t difficulty communicating with pt. Palliative Quality Palliative Quality: Screen for Code Status: Yes, Screen for Goals of Care: NA, Screen for Pain: Yes, If Pain Regimen Started, Initiate Bowel Regimen: Yes, Screen for Nausea/Vomitting: Yes
[2019-07-01] MEDS ORDERED: Haloperidol Oral Conc 10 MG/5 ML UDC GTUBE PRN (14:02)
[2019-07-01] MEDS ORDERED: *HR* OxyCODONE Immed Rel 5 MG TABLET GTUBE PRN ×3 (14:02→15:54)
[2019-07-01] MEDS: *HR* OxyCODONE Immed Rel 5 MG TABLET GTUBE SCH ×2 (18:12→21:46)
[2019-07-02] MEDS: *HR* OxyCODONE Immed Rel 5 MG TABLET GTUBE SCH ×6 (00:05→21:27)
[2019-07-02] MEDS: Azithromycin 250 MG TABLET PO SCH (10:06)
--- NOTE | 2019-07-02 11:49 | Palliative Progress Note ---
Date of Encounter: 07/02/19 Time of Encounter: 15:00 - Assessment and plan (1) Palliative care by specialist Current Visit: No Status: Acute Assessment and plan: Pt's spouse Nuria is documented [facility] and his caregiver at home. Paperwork on file in chart. No family at bedside today. (2) Cancer associated pain Current Visit: No Status: Chronic Assessment and plan: Moderately Controlled-improving. Pt takes oxycodone 10-20mg per PEG Q4hrs PRN at home. Continue 10mg oxycodone Q4hr ATC per PEG + 10mg oxycodone Q4hr PRN per PEG for breakthrough pain. No breakthrough doses in the last 24hrs, pt reports pain is improved-rates pain 5/10. (3) Trigeminal neuralgia of left side of face Current Visit: Yes Status: Acute Assessment and plan: Moderately Controlled-r/t head/neck ca. Continue Tegretol 100mg BID per PEG tube. (4) Agitation Current Visit: No Status: Acute Assessment and plan: Well Controlled-Continue Haldol 2mg oral concentrate Q4hr PRN per PEG for agitation. No doses in the last 24hrs. (5) At risk for constipation Current Visit: No Status: Acute Assessment and plan: Moderately Controlled. Last BM-06/30 per hospice entrance attendant. Continue bowel regimen of: Senna 17.2mg BID for constipation. (takes PRN at home) With recent worsening constipation at home, will schedule while inpatient. Goal is daily BM while on opioid therapy. If no BM within 24hrs, will titrate bowel regimen further. (6) Nausea Current Visit: No Status: Acute Assessment and plan: Well Controlled-Continue Compazine 10mg per PEG tube Q6hrs PRN for nausea. (7) Insomnia Current Visit: No Status: Acute Assessment and plan: Well Controlled- Continue Ambien 5mg per PEG PRN for sleep. (home med) Qualifiers: Insomnia type: other insomnia Qualified Code(s): G47.09 - Other insomnia (8) Depression Current Visit: No Status: Acute Assessment and plan: Continue Citalopram 20mg per PEG daily. (home med) Qualifiers: Depression Type: unspecified Qualified Code(s): F32.9 - Major depressive disorder, single episode, unspecified (9) Head and neck cancer Current Visit: No Status: Acute Assessment and plan: s/p chemoradiation. Currently on home hospice with [facility]. - Time Spent With Patient Total time spent is greater than 50% in coordination of care (as documented) at patient's floor/unit and/or counseling patient: 35 minutes - Subjective Interval history: Mr. Gunter is a 63 year old male with hx of recurrent head and neck cancer s/p chemoradiation who is enrolled in [facility] at home. Pt has become increasingly agitated and intermittently refusing care at home. Pt was reporting uncontrolled pain at home. Pt's spouse Nuria having difficulty caring for patient at home and thus it was decided to admit patient GIP for aggressive symptom management. Other pertinent medical hx includes: COPD, anxiety and depression. Today, pt is lying in bed, appears comfortable, communicates by writing although difficult to engage patient and fully assess symptoms. He rates his pain as a 5/10 today and gave a thumbs up when I asked if this was a tolerable level for him. He continues to report his pain is located in the left side of his face. Discussed that we added a new medication to help with this pain, he voiced understanding. Attempted to engage pt further in conversation to discuss how his symptoms are being managed at home, pt did not want to discuss any further and did not engage in conversation. He requested coffee only when assessing his symptoms. He does report slight drowsiness today, easily awakens and interacts. He denies any additional symptoms/needs at this time. - Constitutional Exam: CONSTITUTIONAL/GENERAL: Chronically ill-appearing, cachectic, slightly drowsy, easily awakened, difficulty communicating-writes on paper, appears comfortable. Ear/Nose/Mouth/Throat (EMNT): Patent, atraumatic, trach present. CARDIOVASCULAR: Pulse regular; No edema. No cyanosis/ischemia. RESPIRATORY: Unlabored. Symmetric, normal effort. Secretions noted. GASTROINTESTINAL: Soft, non-distended. Hypoactive bowel sounds present. PEG tube present. GENITOURINARY: Howell catheter present. MUSCULOSKELETAL: No deformities; No joint swelling or erythema. INTEGUMENTARY: No rashes or lesions noted. NEUROLOGIC: No gross motor or sensory deficits appreciated. Pt communicates by writing and mouthing words. PSYCHIATRY: Unable to fully assess d/t difficulty communicating with pt. Palliative Quality Palliative Quality: Screen for Code Status: Yes, Screen for Goals of Care: NA, Screen for Pain: Yes, If Pain Regimen Started, Initiate Bowel Regimen: Yes, Scre en for Nausea/Vomitting: Yes Code Status: 07/01/19 13:54 Resuscitation Status: Active [RES] Routine Comment: Resuscitation Status: DNR-Comfort Care Consult Discharge Plan - Plan Referrals: NONE,PCP [Primary Care Provider] -
[2019-07-02] MEDS ORDERED: Azithromycin 250 MG TABLET PO SCH (14:02)
[2019-07-03] MEDS: *HR* OxyCODONE Immed Rel 5 MG TABLET GTUBE SCH ×7 (00:21→23:51)
--- NOTE | 2019-07-03 10:01 | Palliative Progress Note ---
Date of Encounter: 07/03/19 Time of Encounter: 12:47 - Assessment and plan (1) Palliative care by specialist Current Visit: No Status: Acute Assessment and plan: Pt's spouse Nuria is documented [facility] and his caregiver at home. Paperwork on file in chart. No family at bedside today. Pt admitted GIP for uncontrolled symptoms. Symptoms now well controlled with current medications, will transition to respite care as caregiver still requiring relief. 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 Pt takes oxycodone 10-20mg per PEG Q4hrs PRN at home. Continue 10mg oxycodone Q4hr ATC per PEG + 10mg oxycodone Q4hr PRN per PEG for breakthrough pain. No breakthrough doses in the last 24hrs. (3) Trigeminal neuralgia of left side of face Current Visit: Yes Status: Acute Assessment and plan: Moderately Controlled-r/t head/neck ca. Continue Tegretol 100mg BID per PEG tube. (4) Agitation Current Visit: No Status: Acute Assessment and plan: Well Controlled-Continue Haldol 2mg oral concentrate Q4hr PRN per PEG for agitation. No doses in the last 24hrs. (5) At risk for constipation Current Visit: No Status: Acute Assessment and plan: Poorly Controlled. Last BM-06/30 per pin puller. Continue bowel regimen of: Senna 17.2mg BID for constipation. (takes PRN at home) With recent worsening constipation at home, will schedule while inpatient. Goal is daily BM while on opioid therapy. Will add Miralax once today, then daily PRN. (6) Nausea Current Visit: No Status: Acute Assessment and plan: Well Controlled-Continue Compazine 10mg per PEG tube Q6hrs PRN for nausea. (7) Insomnia Current Visit: No Status: Acute Assessment and plan: Well Controlled- Continue Ambien 5mg per PEG PRN for sleep. (home med) Qualifiers: Insomnia type: other insomnia Qualified Code(s): G47.09 - Other insomnia (8) Depression Current Visit: No Status: Acute Assessment and plan: Continue Citalopram 20mg per PEG daily. (home med) Qualifiers: Depression Type: unspecified Qualified Code(s): F32.9 - Major depressive disorder, single episode, unspecified (9) Head and neck cancer Current Visit: No Status: Acute Assessment and plan: s/p chemoradiation. Currently on home hospice with [facility]. - Time Spent With Patient Total time spent is greater than 50% in coordination of care (as documented) at patient's floor/unit and/or counseling patient: 20 minutes - Subjective Interval history: First Visit: Pt is lying in bed, appears to be resting comfortably, communicates by writing and mouthing words. Difficulty engaging pt in conversation today to assess symptoms. Pt wrote sleep and motioned me out of the room with his hand. I discussed with patient that I am here to make sure his symptoms are well controlled. He nodded his head when I asked if his pain has improved since admission. He was reluctant to answer any additional symptom assessment questions. Discussed with patient that I would stop by later today to see if he is more willing to engage in conversation. RN reports pt is refusing trach care and repositioning at this time. RN reports he also intermittently refuses his tube feed, tube feeding given with his medications this morning. - Constitutional Exam: CONSTITUTIONAL/GENERAL: Chronically ill-appearing, cachectic, slightly drowsy, easily awakened, difficulty communicating-writes on paper, appears comfortable. Ear/Nose/Mouth/Throat (EMNT): Patent, atraumatic, trach present. CARDIOVASCULAR: Pulse regular; No edema. No cyanosis/ischemia. RESPIRATORY: Unlabored. Symmetric, normal effort. Decreased lung sounds bilaterally. Secretions noted. GASTROINTESTINAL: Soft, non-distended. PEG tube present. GENITOURINARY: Howell catheter present. MUSCULOSKELETAL: No deformities; No joint swelling or erythema. NEUROLOGIC: No gross motor or sensory deficits appreciated. Pt communicates by writing and mouthing words. PSYCHIATRY: Flat affect. Unable to fully assess d/t difficulty communicating with pt. Palliative Quality Palliative Quality: Screen for Code Status: Yes, Screen for Goals of Care: NA, Screen for Pain: Yes, If Pain Regimen Started, Initiate Bowel Regimen: Yes, Screen for Nausea/Vomitting: Yes Code Status: 07/01/19 13:54 Resuscitation Status: Active [RES] Routine Comment: Resuscitation Status: DNR-Comfort Care Consult Discharge Plan - Plan Referrals: NONE,PCP [Primary Care Provider] -
[2019-07-04] MEDS: *HR* OxyCODONE Immed Rel 5 MG TABLET GTUBE SCH ×5 (04:56→22:07)
--- NOTE | 2019-07-04 09:05 | Palliative Progress Note ---
Date of Encounter: 07/04/19 Time of Encounter: 09:03 - Assessment and plan (1) Palliative care by specialist Current Visit: No Status: Acute Assessment and plan: Pt's spouse Nuria is documented [facility] and his caregiver at home. Paperwork on file in chart. No family at bedside today. Pt admitted GIP for uncontrolled symptoms. Transitioned to Respite Care yesterday as symptoms remain well controlled. 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 Pt takes oxycodone 10-20mg per PEG Q4hrs PRN at home. Continue 10mg oxycodone Q4hr ATC per PEG + 10mg oxycodone Q4hr PRN per PEG for breakthrough pain. No breakthrough doses since admission. (3) Trigeminal neuralgia of left side of face Current Visit: Yes Status: Acute Assessment and plan: Moderately Controlled-r/t head/neck ca. Continue Tegretol 100mg BID per PEG tube. (4) Agitation Current Visit: No Status: Acute Assessment and plan: Well Controlled-Continue Haldol 2mg oral concentrate Q4hr PRN per PEG for agitation. No doses of Haldol since admission. (5) At risk for constipation Current Visit: No Status: Acute Assessment and plan: Poorly Controlled. Last BM-06/30 per clinical analyst. Continue bowel regimen of: Senna 17.2mg BID for constipation. (takes PRN at home) Goal is daily BM while on opioid therapy. Will change Miralax to daily scheduled for now. (6) Nausea Current Visit: No Status: Acute Assessment and plan: Well Controlled-Continue Compazine 10mg per PEG tube Q6hrs PRN for nausea. (7) Insomnia Current Visit: No Status: Acute Assessment and plan: Well Controlled- Continue Ambien 5mg per PEG PRN for sleep. (home med) Qualifiers: Insomnia type: other insomnia Qualified Code(s): G47.09 - Other insomnia (8) Depression Current Visit: No Status: Acute Assessment and plan: Continue Citalopram 20mg per PEG daily. (home med) Qualifiers: Depression Type: unspecified Qualified Code(s): F32.9 - Major depressive disorder, single episode, unspecified (9) Head and neck cancer Current Visit: No Status: Acute Assessment and plan: s/p chemoradiation. Currently on home hospice with [facility]. - Time Spent With Patient Total time spent is greater than 50% in coordination of care (as documented) at patient's floor/unit and/or counseling patient: 20 minutes - Subjective Interval history: Pt lying in bed, NAD, appears comfortable. Pt with head under blanket upon my entering the room. Again, difficulty engaging patient in conversation today to assess his symptoms. He did uncover his face during visit and motion for me to leave the room. I discussed that we are here to ensure his symptoms are well managed. He did not engage further in assessment questions regarding his pain. He did deny constipation today and I discussed the importance of regular bowel movements while on opioid therapy. He has not had BM since admission, discussed that we would work on his bowel regimen to ensure he does not become constipated. He nodded and gave me a fist pump. He did not want to further discuss symptoms but did allow me to assess him. He denies any additional symptoms/needs at this time. - Constitutional Exam: CONSTITUTIONAL/GENERAL: Chronically ill-appearing, cachectic, slightly drowsy, easily awakened, difficulty communicating-writes on paper, appears comfortable. Ear/Nose/Mouth/Throat (EMNT): Patent, atraumatic, trach present. CARDIOVASCULAR: Pulse regular; No edema. No cyanosis/ischemia. RESPIRATORY: Unlabored. Symmetric, normal effort. Decreased lung sounds bilaterally. Minimal secretions noted. GASTROINTESTINAL: Soft, non-distended. PEG tube present. GENITOURINARY: Howell catheter present. MUSCULOSKELETAL: No deformities; No joint swelling or erythema. NEUROLOGIC: No gross motor or sensory deficits appreciated. Pt communicates by writing and mouthing words. PSYCHIATRY: Flat affect. Unable to fully assess, pt minimally engaging in conversation. Palliative Quality Palliative Quality: Screen for Code Status: Yes, Screen for Goals of Care: NA, Screen for Pain: Yes, If Pain Regimen Started, Initiate Bowel Regimen: Yes, Screen for Nausea/Vomitting: Yes Code Status: 07/01/19 13:54 Resuscitation Status: Active [RES] Routine Comment: Resuscitation Status: DNR-Comfort Care Palliative Scale - Palliative Performance Scale How ambulatory is this patient?: Mainly in bed What is patient's level of activity and evidence of disease?: Unable to do any work, Extensive disease How much self-care assistance does patient require?: Mainly assistance How much oral intake does the patient have?: Mouth care only What is this patient's level of consciousness?: Full or drowsy with or without confusion Palliative Performance Score: 20 % Consult Discharge Plan - Plan Referrals: NONE,PCP [Primary Care Provider] -
[2019-07-04] MEDS: Azithromycin 250 MG TABLET PO SCH (09:12)
[2019-07-05] MEDS: *HR* OxyCODONE Immed Rel 5 MG TABLET GTUBE SCH ×6 (00:16→20:50)
[2019-07-06] MEDS: *HR* OxyCODONE Immed Rel 5 MG TABLET GTUBE SCH ×6 (00:30→22:30)
--- NOTE | 2019-07-06 18:48 | Palliative Progress Note ---
Date of Encounter: 07/06/19 Time of Encounter: 18:44 - Assessment and plan (1) Hospice care Current Visit: Yes Status: Acute Assessment and plan: Patient was admitted as a hospice GIP for pain and agitation management, now stable, was transitioned to respite as a transition to returning home. continue home medications. (2) Agitation Current Visit: No Status: Acute Assessment and plan: Patient is repeatedly pulled out his trach canula, however does not display signs of agitation or combativeness. In case of need, Haldol [address] (3) Trigeminal neuralgia of left side of face Current Visit: Yes Status: Acute Assessment and plan: Continue Tegretol 100mg BID per PEG tube. (4) Cancer associated pain Current Visit: No Status: Chronic Assessment and plan: Patient's pain appears well controlled with current scheduled 10mg oxycodone Q4hr scheduled per PEG. Has not required any prn doses. (5) Head and neck cancer Current Visit: No Status: Acute Assessment and plan: comfort measures only. - Time Spent With Patient Total time spent is greater than 50% in coordination of care (as documented) at patient's floor/unit and/or counseling patient: 25 - 35 minutes - Subjective Interval history: Pt joseph in bed in a dark room, appears to be sleeping comfortably, easily arousable, but not willing to interact. Was notified by nurse overnight that pt pulled out his trach canula, and again 2 times during the day. However, pt does not appear agitated or anxious, and nurse does not believe that he need any doses of haldol. Partially cooperative with care and medications. - Constitutional Exam: Vitals reviewed General appearance: cachetic, appears comfortable Neck: atraumatic, trach in place. Chest: bilateral: decrease breath sounds, moderate secretions noted Cardiovascular: regular rate and rhythm, no murmur, rub, gallop Gastrointestinal: soft, non-tender, PEG tube in place Integumentary: normal, intact Extremities: no cyanosis, no edema, no clubbing Musculoskeletal: no deformities Neurologic: non-focal exam Palliative Quality Palliative Quality: Screen for Code Status: Yes, Screen for Goals of Care: NA, Screen for Pain: Yes, If Pain Regimen Started, Initiate Bowel Regimen: Yes, Screen for Nausea/Vomitting: Yes Code Status: 07/01/19 13:54 Resuscitation Status: Active [RES] Routine Comment: Resuscitation Status: DNR-Comfort Care Palliative Scale - Palliative Performance Scale How ambulatory is this patient?: Mainly in bed What is patient's level of activity and evidence of disease?: Unable to do any work, Extensive disease How much self-care assistance does patient require?: Mainly assistance How much oral intake does the patient have?: Mouth care only What is this patient's level of consciousness?: Full or drowsy with or without confusion Palliative Performance Score: 20 % Consult Discharge Plan - Plan Referrals: NONE,PCP [Primary Care Provider] -
--- NOTE | 2019-07-07 09:21 | Palliative Progress Note ---
Date of Encounter: 07/07/19 Time of Encounter: 13:33 - Assessment and plan (1) Palliative care by specialist Current Visit: No Status: Acute Assessment and plan: Pt's spouse Nuria is documented [facility] and his caregiver at home. Paperwork on file in chart. No family at bedside today. Pt was admitted GIP for uncontrolled symptoms. Transitioned to Respite Care last week as symptoms stable. Plan for discharge home tomorrow at 1500. 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 Pt's reports pt has been taking 20mg oxycodone Q4hrs ATC at home for "a very long time." Upon admission, pt was placed on 10mg oxycodone Q4hr ATC per PEG + 10mg oxycodone Q4hr PRN per PEG for breakthrough pain. Pt has not needed any breakthrough doses this admission and pain has remained moderately controlled on lower dose of opioids. It is possible that the addition of Tegretol has significantly improved his pain. However, continue to monitor closely as concern for possible misuse of opioids by patients (reported by family members) and reports of possible diversion (reported by family members). Continue current scheduled oxycodone. (3) Trigeminal neuralgia of left side of face Current Visit: Yes Status: Acute Assessment and plan: Moderately Controlled-r/t head/neck ca. Continue Tegretol 100mg BID per PEG tube. (4) Agitation Current Visit: No Status: Acute Assessment and plan: Well Controlled-Continue Haldol 2mg oral concentrate Q4hr PRN per PEG for agitation. No doses of Haldol since admission. (5) At risk for constipation Current Visit: No Status: Acute Assessment and plan: Poorly Controlled-although pt denies constipation. Last BM-06/30 per hospice spiritual care coordinator. Continue current bowel regimen of: Senna 17.2mg BID + Miralax daily. (takes PRN at home). Discussed with pt today the importance of regular BM's while on opioid therapy. One-time dose of Lactulose added today. Goal is daily BM while on opioid therapy. (6) Nausea Current Visit: No Status: Acute Assessment and plan: Well Controlled-Continue Compazine 10mg per PEG tube Q6hrs PRN for nausea. (7) Insomnia Current Visit: No Status: Acute Assessment and plan: Well Controlled- Continue Ambien 5mg per PEG PRN for sleep. (home med) Qualifiers: Insomnia type: other insomnia Qualified Code(s): G47.09 - Other insomnia (8) Depression Current Visit: No Status: Acute Assessment and plan: Continue Citalopram 20mg per PEG daily. (home med) Qualifiers: Depression Type: unspecified Qualified Code(s): F32.9 - Major depressive disorder, single episode, unspecified (9) Head and neck cancer Current Visit: No Status: Acute Assessment and plan: s/p chemoradiation. Currently on home hospice with [facility]. - Time Spent With Patient Total time spent is greater than 50% in coordination of care (as documented) at patient's floor/unit and/or counseling patient: 35 minutes - Subjective Interval history: First Visit: Pt lying in bed, NAD, appears comfortable. Pt is awake and interactive during visit. It was noted that pt's trach cannula was pulled half way out upon my entrance in the room. I asked Mr. Gunter if he preferred to leave his cannula out, he shook his head no. I asked why he keeps pulling it out and he did not engage in conversation further. I did ask if he would like it put back in, he shook his head yes. Discussed with patient that if he would prefer to leave his cannula out, we have that option. He denies constipation today although he has not had a BM since admission. We discussed the importance of regular bowel movements while on opioid therapy and plan to increase his bowel regimen. Regarding his pain, he rates his pain today at 4/10. He did not engage further in symptom assessment questions at the time of the visit. Bedside RN notified that pt needs trach cannula put back in, RT made aware. Discussed with patient plan for discharge home tomorrow. Second Visit: Pt resting in bed, appears comfortable, NAD. Trach cannula in place. - Constitutional Exam: CONSTITUTIONAL/GENERAL: Chronically ill-appearing, cachectic, awake, interactive, difficulty communicating-writes on paper, appears comfortable. Ear/Nose/Mouth/Throat (EMNT): Patent, atraumatic, trach present. CARDIOVASCULAR: Pulse regular; No edema. No cyanosis/ischemia. RESPIRATORY: Unlabored. Symmetric, normal effort. Decreased lung sounds bilaterally. Minimal secretions noted. GASTROINTESTINAL: Soft, non-distended. PEG tube present. GENITOURINARY: Howell catheter present. MUSCULOSKELETAL: No deformities; No joint swelling or erythema. NEUROLOGIC: No gross motor or sensory deficits appreciated. Pt communicates by writing and mouthing words. PSYCHIATRY: Flat affect. Unable to fully assess, pt minimally engaging in conversation. Palliative Quality Palliative Quality: Screen for Code Status: Yes, Screen for Goals of Care: NA, Screen for Pain: Yes, If Pain Regimen Started, Initiate Bowel Regimen: Yes, Screen for Nausea/Vomitting: Yes Code Status: 07/01/19 13:54 Resuscitation Status: Active [RES] Routine Comment: Resuscitation Status: DNR-Comfort Care Palliative Scale - Palliative Performance Scale How ambulatory is this patient?: Mainly in bed What is patient's level of activity and evidence of disease?: Unable to do any work, Extensive disease How much self-care assistance does patient require?: Mainly assistance How much oral intake does the patient have?: Mouth care only What is this patient's level of consciousness?: Full or drowsy with or without confusion Palliative Performance Score: 20 % Consult Discharge Plan - Plan Referrals: NONE,PCP [Primary Care Provider] -
[2019-07-07] MEDS: *HR* OxyCODONE Immed Rel 5 MG TABLET GTUBE SCH ×5 (10:04→21:17)
[2019-07-07] MEDS: Azithromycin 250 MG TABLET PO SCH (10:16)
[2019-07-07] MEDS ORDERED: Lactulose Oral Soln 20 GM/30 ML UDC GTUBE ONE (21:00)
[2019-07-08] MEDS: *HR* OxyCODONE Immed Rel 5 MG TABLET GTUBE SCH ×4 (00:27→12:08)
[2019-07-08 07:54] VITALS: BP 125/77
--- NOTE | 2019-07-08 08:57 | Discharge Summary ---
Date of Encounter: 07/08/19 Time of Encounter: 11:09 - Discharge Diagnosis (1) Head and neck cancer Priority: Primary Status: Acute (2) Cancer associated pain Priority: Secondary Status: Chronic Comments: Moderately Controlled- Pt's home regimen is oxycodone 10-20mg per PEG Q4hrs PRN at home. Pt's reports pt has been taking 20mg oxycodone Q4hrs ATC at home for "a very long time." Upon admission, pt was placed on 10mg oxycodone Q4hr ATC per PEG + 10mg oxycodone Q4hr PRN per PEG for breakthrough pain. Pt has not needed any breakthrough doses this admission and pain has remained moderately controlled on lower dose of opioids. It is possible that the addition of Tegretol has significantly improved his pain. However, continue to monitor closely as concern for possible misuse of opioids by patients (reported by family members) and reports of possible diversion (reported by family members). Continue current scheduled oxycodone 10mg Q4hr ATC at home. (3) Trigeminal neuralgia of left side of face Priority: Secondary Status: Chronic Comments: Moderately Controlled-r/t head/neck ca. Continue Tegretol 100mg BID per PEG tube. Medication ordered by [facility] to be delivered to home today. (4) At risk for constipation Priority: Secondary Status: Resolved Comments: Resolved. BM today, 07/08/19. Continue current bowel regimen of: Senna 17.2mg BID + Miralax daily. (takes PRN at home). Discussed with pt today the importance of regular BM's while on opioid therapy. Goal is daily BM while on opioid therapy. (5) Nausea Priority: Secondary Status: Chronic - Hospital Course Hospital course: Mr. Gunter is a 63 year old male with hx of recurrent head and neck cancer s/p chemoradiation who is enrolled in [facility] at home. Pt had become increasingly agitated and intermittently refusing care at home prior to admission. Pt was also reporting uncontrolled pain at home prior to admission. Pt's spouse Nuria was having difficulty caring for patient at home and thus it was decided to admit patient GIP for aggressive symptom management. Other pertinent medical hx includes: COPD, anxiety and depression. Pt was placed on 10mg oxycodone per PEG Q4hr ATC with breakthrough doses of oxycodone available as well. He was also placed on Tegretol 100mg BID PEG for trigeminal neuralgia. This admission, pt did not require any doses of Haldol or breakthrough oxycodone. Pt was transitioned to respite care last week as pain and symptoms are well controlled. Upon exam today, pt is lying in bed with NAD. He appears comfortable on exam. Pt is awake and interactive during visit. Trach cannula taken out last night per pt's request. He does not wish to put his cannula back in at this time. Pt continues to be difficult to engage in coversation to assess symptoms. Pt with large bowel movement today. Bedside RN, clerical order filler and myself at bedside today to give pt bath, tolerated well. Pt to discharge back home today. Transport time of 1500 per hospice. - Time Spent with Patient Total time spent providing and/or coordinating discharge services: 20 minutes - Discharge Medications Prescriptions: New Citalopram [CeleXA] 20 mg GTUBE DAILY tablet Haloperidol Oral Conc [Haldol] 2 mg GTUBE Q4HR PRN udc PRN Reason: agitation Zolpidem [Ambien] 5 mg GTUBE HS PRN tablet PRN Reason: Insomnia Prochlorperazine Maleate [Compazine] 10 mg GTUBE Q6HR PRN tablet PRN Reason: Nausea And Vomiting Continued OxyCODONE Immed Rel [Roxicodone 10 MG] 10 mg GTUBE Q4H Levothyroxine Sodium [Levoxyl] 150 mcg GTUBE QAM Bisacodyl [Gentle Laxative] 10 mg RC DAILY PRN PRN Reason: Constipation Acetaminophen [Tylenol 650mg SUPP] 650 mg RC Q6H PRN PRN Reason: PAIN/FEVER LORazepam [Ativan] 0.5 mg SL Q6H PRN PRN Reason: ANXIETY/AGITATION Sennosides [Senna] 17.2 mg GTUBE BID Hyoscyamine SL [Levsin Sl] 0.125 mg SL Q4H PRN PRN Reason: Secretions carBAMazepine [Tegretol] 100 mg GTUBE BID Azithromycin [Zithromax] 250 mg GTUBE MOWEFR Discontinued Prochlorperazine Maleate [Compazine] 10 mg GTUBE Q6H PRN PRN Reason: Nausea Haloperidol Oral Conc [Haldol] 2 mg GTUBE Q4H PRN PRN Reason: Agitation Zolpidem [Ambien] 5 mg GTUBE HS PRN PRN Reason: Sleep No Action Citalopram [CeleXA] 20 mg GTUBE DAILY Home Medications: Levothyroxine Sodium [Levoxyl] 150 mcg GTUBE QAM 05/26/19 [History] OxyCODONE Immed Rel [Roxicodone 10 MG] 10 mg GTUBE Q4H 05/26/19 [History] Acetaminophen [Tylenol 650mg SUPP] 650 mg RC Q6H PRN 07/02/19 [History] Bisacodyl [Gentle Laxative] 10 mg RC DAILY PRN 07/02/19 [History] Citalopram [CeleXA] 20 mg GTUBE DAILY 07/02/19 [History] Hyoscyamine SL [Levsin Sl] 0.125 mg SL Q4H PRN 07/02/19 [History] LORazepam [Ativan] 0.5 mg SL Q6H PRN 07/02/19 [History] Sennosides [Senna] 17.2 mg GTUBE BID 07/02/19 [History] Azithromycin [Zithromax] 250 mg GTUBE MOWEFR 07/08/19 [History] Citalopram [CeleXA] 20 mg GTUBE DAILY tablet 07/08/19 [Rx] Haloperidol Oral Conc [Haldol] 2 mg GTUBE Q4HR PRN udc 07/08/19 [Rx] Prochlorperazine Maleate [Compazine] 10 mg GTUBE Q6HR PRN tablet 07/08/19 [Rx] Zolpidem [Ambien] 5 mg GTUBE HS PRN tablet 07/08/19 [Rx] carBAMazepine [Tegretol] 100 mg GTUBE BID 07/08/19 [History] Allergies/Adverse Reactions: Allergy/AdvReac Type Severity Reaction Status Date / Time No Known Allergies Allergy Verified 11/12/18 13:29 Internal Medicine - DS: Prov Date of admission: 07/01/19 14:58 Primary care physician: PCP NONE Consults: 07/01/19 13:54 Consult to Palliative Care [CONS] Routine Comment: Consulting Provider: Palliative Care Luzma Reason for Consult: GIP Patient Call Completed: No 07/01/19 15:18 Consult to Nutrition [CONS] Routine Comment: Consulting Provider: NUTRITION Reason for Dietary Consult: Tube Feed Start & Manage Attending physician on discharge: Theresa Richey Discharging clinician: Mariah Daniels Internal Medicine - DS: Exam - Constitutional Vitals: Vital Signs Temp Pulse Resp BP Pulse Ox 07/08/19 07:49 97.9 F 63 16 125/77 93 07/07/19 23:24 97.4 F L 67 19 137/86 95 Intake and Output 07/07/19 07/08/19 07/08/19 23:59 07:59 15:59 Intake Total 375 / 625 150 / 150 Output Total 400 / 400 1000 / 1000 Balance -25 / 225 -850 / -850 Intake: Oral 0 / 0 Free Water Intake Amount 375 / 625 150 / 150 Output: Gastric Tube Lavage Amount 0 / 0 midline abd 0 / 0 Catheter 400 / 400 1000 / 1000 Additional comments: CONSTITUTIONAL/GENERAL: Chronically ill-appearing, cachectic, awake, interactive, difficulty communicating-writes on paper, appears comfortable. Ear/Nose/Mouth/Throat (EMNT): Patent, atraumatic, trach cannula not in place per pt request. CARDIOVASCULAR: Pulse regular; No edema. No cyanosis/ischemia. RESPIRATORY: Unlabored. Symmetric, normal effort. GASTROINTESTINAL: Soft, non-distended. PEG tube present. GENITOURINARY: Howell catheter present. MUSCULOSKELETAL: No deformities; No joint swelling or erythema. NEUROLOGIC: No gross motor or sensory deficits appreciated. Pt communicates by writing and mouthing words. PSYCHIATRY: Flat affect. Unable to fully assess, pt minimally engaging in conversation. - Patient Status Disposition: Hospice - Home Condition: Fair Functional capacity at discharge: bed bound Overall status at discharge: patient is back to baseline - Discharge Instructions Follow Up With: NONE,PCP [Primary Care Provider] - - Diet and Activity Activity: resume usual activities as tolerated Diet: other (Change tube feeds to 1/2 can of ensure BID as tolerated. Pt allowed to refuse. )
[2019-07-08] MEDS ORDERED: Bisacodyl 10 MG RECTAL SUPPOSITORY RC ONE (09:00)
[2019-07-08] MEDS ORDERED: Lactulose Oral Soln 20 GM/30 ML UDC GTUBE ONE (09:00)
== END 2019-07-08 15:17 | disposition hospice, home (50) | DRG 951 ==
LOC: 2ANU 14:58
PROVIDERS: ADMIT Internal Medicine Hospice and Palliative Medicine; ATTEND Internal Medicine Hospice and Palliative Medicine